=== PATIENT | female | born 1955 | race Caucasian/White ===

== ENCOUNTER → 2017-10-02 09:01 | Outpatient (CLI) | payer OTHER, SELFPAY ==
[2017-10-02 10:48] LABS: ALB/GLOB Ratio 0.8 RATIO (0.9-2.4); AST(SGOT) 33 U/L (15-37); Alanine Aminotransfer ALT/SGPT 26 U/L (13-56); Albumin, Serum 3.3 g/dL (3.2-5.0); Alkaline Phosphatase 91 U/L (45-117); Anion Gap 7 (5-15); BUN 10 mg/dL (7-18); BUN/Creat Ratio 16.6 RATIO (10-20); Calcium,Total 8.2 mg/dL (8.5-10.1); Chloride 109 mmol/L (98-107); EST Glomerular Filtration Rate 106 mL/min (>60); Est Glom Filt Rate - Afr Amer 129 mL/min (>60); Globulin 4.1 g/dL (2.2-4.2); Glucose 80 mg/dL (74-106); Magnesium 2.5 mg/dL (1.6-2.6); Potassium 4.2 mmol/L (3.5-5.1); Protein, Total 7.4 g/dL (6.4-8.2); Sodium Level 143 mmol/L (136-145)
[2017-10-02 12:42] LABS: PTHIN 98.4 pg/mL (18.4-80.1)
== END ==
PROVIDERS: Family Provider Internal Medicine; PCP Internal Medicine; Visit Provider Internal Medicine Endocrinology, Diabetes & Metabolism
DX: M81.0 Age-related osteoporosis without current pathological fracture (principal); E83.42 Hypomagnesemia
CPT/HCPCS: 36415; 80053; 83735; 83970

== ENCOUNTER → 2017-11-17 09:11 | Outpatient (CLI) | payer OTHER, SELFPAY ==
[2017-11-17 09:54] LABS: 24Hr.Lytes Total Volume 2750 mL; Sodium 24 HR UR 165 mmol/24h (40-220); Urine Sodium 60 mmol/L (Not Establ.)
[2017-11-17 10:08] LABS: Albumin, Serum 3.2 g/dL (3.2-5.0); BUN 11 mg/dL (7-18); BUN/Creat Ratio 17.6 RATIO (10-20); Creatinine, Serum 0.62 mg/dL (0.55-1.02); EST Glomerular Filtration Rate 102 mL/min (>60); Est Glom Filt Rate - Afr Amer 124 mL/min (>60); Globulin 3.8 g/dL (2.2-4.2); Glucose 92 mg/dL (74-106)
[2017-11-17 10:09] LABS: ALB/GLOB Ratio 0.8 RATIO (0.9-2.4); AST(SGOT) 32 U/L (15-37); Alanine Aminotransfer ALT/SGPT 27 U/L (13-56); Alkaline Phosphatase 80 U/L (45-117); Anion Gap 5 (5-15); Calcium,Total 8.3 mg/dL (8.5-10.1); Chloride 108 mmol/L (98-107); Magnesium 2.3 mg/dL (1.6-2.6); Potassium 4.2 mmol/L (3.5-5.1); Sodium Level 142 mmol/L (136-145)
[2017-11-17 10:16] LABS: PTHIN 78.8 pg/mL (18.4-80.1)
== END ==
PROVIDERS: Family Provider Internal Medicine; PCP Internal Medicine; Visit Provider Internal Medicine Endocrinology, Diabetes & Metabolism
DX: M81.0 Age-related osteoporosis without current pathological fracture (principal); E83.42 Hypomagnesemia; E55.9 Vitamin D deficiency, unspecified; E21.5 Disorder of parathyroid gland, unspecified
CPT/HCPCS: 36415; 80053; 82306; 82570; 83735; 83970; 84300

== ENCOUNTER → 2017-11-20 13:06 | Outpatient (CLI) | payer OTHER, SELFPAY ==
[2017-11-20 13:44] LABS: 24HR UR TOTAL VOLUME 2850 ml; Calcium Urine pH Range 1; Urine Calcium (Random) < 5.0 (Not Estab.)
== END ==
PROVIDERS: Family Provider Internal Medicine; PCP Internal Medicine; Visit Provider Internal Medicine Endocrinology, Diabetes & Metabolism
DX: M81.0 Age-related osteoporosis without current pathological fracture (principal)
CPT/HCPCS: 81050; 82340

== ENCOUNTER → 2017-12-17 08:54 | Outpatient (CLI) | payer OTHER, SELFPAY ==
[2017-12-17 08:59] VITALS: BP 92/65; PULSE 65; RESP 18; TEMP 35.9; O2SAT 99
[2017-12-17] MEDS: Zoledronic Acid 5 MG 100 ML 300 MG IV (09:13)
== END ==
PROVIDERS: Family Provider Internal Medicine; PCP Internal Medicine; Visit Provider Internal Medicine Endocrinology, Diabetes & Metabolism
DX: M81.0 Age-related osteoporosis without current pathological fracture (principal)
CPT/HCPCS: 96365; A4216; J3489

== ENCOUNTER → 2018-01-07 09:37 | Outpatient (CLI) | payer OTHER, SELFPAY ==
--- NOTE | 2018-01-07 09:37 | DT_ITS ---
This patient was seen during an EMR downtime January 05, 2018 - January 12, 2018. This patient may have a combination of paper and electronic documentation or all paper documentation. All documentation is viewable within the e-chart portion of [facility] for each patient visit.
[2018-01-12 12:47] LABS: PTHIN 76.2 pg/mL (18.4-80.1)
[2018-01-12 15:49] LABS: Anion Gap 5 (5-15); BUN 12 mg/dL (7-18); BUN/Creat Ratio 16.7 RATIO (10-20); Calcium,Total 8.6 mg/dL (8.5-10.1); Chloride 109 mmol/L (98-107); Creatinine, Serum 0.72 mg/dL (0.55-1.02); EST Glomerular Filtration Rate 87 mL/min (>60); Est Glom Filt Rate - Afr Amer 105 mL/min (>60); Glucose 80 mg/dL (74-106); Potassium 4.3 mmol/L (3.5-5.1); Sodium Level 142 mmol/L (136-145)
== END ==
PROVIDERS: Family Provider Internal Medicine; PCP Internal Medicine
DX: E22.1 Hyperprolactinemia (principal); M81.0 Age-related osteoporosis without current pathological fracture
CPT/HCPCS: 36415; 80048; 83970

== ENCOUNTER → 2018-07-09 09:34 | Outpatient (CLI) | payer OTHER, SELFPAY ==
[2018-07-09 11:48] LABS: ALB/GLOB Ratio 0.8 RATIO (0.9-2.4); AST(SGOT) 39 U/L (15-37); Alanine Aminotransfer ALT/SGPT 32 U/L (13-56); Albumin, Serum 3.2 g/dL (3.2-5.0); Alkaline Phosphatase 61 U/L (45-117); Anion Gap 6 (5-15); BUN 12 mg/dL (7-18); BUN/Creat Ratio 16.7 RATIO (10-20); Calcium,Total 8.6 mg/dL (8.5-10.1); Chloride 107 mmol/L (98-107); Creatinine, Serum 0.72 mg/dL (0.55-1.02); EST Glomerular Filtration Rate 87 mL/min (>60); Est Glom Filt Rate - Afr Amer 105 mL/min (>60); Globulin 4.1 g/dL (2.2-4.2); Glucose 75 mg/dL (74-106); Magnesium 2.2 mg/dL (1.6-2.6); Potassium 4.3 mmol/L (3.5-5.1); Protein, Total 7.3 g/dL (6.4-8.2); Sodium Level 141 mmol/L (136-145)
== END ==
PROVIDERS: Family Provider Internal Medicine; PCP Internal Medicine; Referring Provider Internal Medicine Endocrinology, Diabetes & Metabolism; Visit Provider Internal Medicine Endocrinology, Diabetes & Metabolism
DX: M81.0 Age-related osteoporosis without current pathological fracture (principal); E83.42 Hypomagnesemia
CPT/HCPCS: 36415; 80053; 83735

== ENCOUNTER → 2018-07-18 07:03 | Outpatient (CLI) | payer OTHER, SELFPAY ==
[2018-07-18 08:38] LABS: Cholesterol 192 mg/dL (200); High Density Lipoprotein 42 mg/dL; Triglycerides 129 mg/dL; Very Low Density Lipoprotein 26 mg/dL (5-40)
[2018-07-18 09:00] LABS: PTHIN 163.5 pg/mL (18.4-80.1)
[2018-07-18 09:06] LABS: Vitamin D,25 Hydroxy 76.8 ng/mL (29.95-100.01)
--- OUTSIDE RECORDS SUMMARY | 2018-10-21 08:20 | XMS RPT_ITS | Continuity of Care Document ---
:1955 Author Organization [facility] Address [facility] [address] [place] [address] Phone Care Team Providers Name Role Phone Amy Pickard DO Unavailable Dr. Mesfin Newton DO Unavailable Silver LLANOS, Dr. Odonnell Unavailable Dr. Kun Simon Unavailable Chanel Bush Unavailable Unavailable Slarb CONCRETE SWIMMING POOL INSTALLER, Leigh Unavailable Unavailable MessengerKHANHN Chanel Unavailable Unavailable Long CONCRETE SWIMMING POOL INSTALLER, Genevieve L Unavailable Unavailable Unavailable Unavailable Problems Name Dates Details Abnormal lung sounds (R09.89, 786.7) Comments: Forced exp wheeze Status: Active Abortions/Miscarriages Comments: 3 Status: Active Anemia (D64.9, 285.9) Status: Active Annual physical exam (Z00.00, V70.0) Status: Active B12 deficiency (E53.8, 266.2) Status: Active BMI less than 19,adult (Z68.1, V85.0) Status: Active Breast cyst (610.0) Status: Active Breast screening (Z12.31, V76.10) Status: Active Breast screening (Z12.39, V76.10) Status: Active Cough (R05, 786.2) Status: Active Deliveries (Parity) Comments: 2 Status: Active Disorder of bone and cartilage (M89.9, 733.90) Comments: osteopenia-- worsening -- will hold off until jaw issues figured out -- then if ok need to do new /different rx bc boniva not working Status: Active Encounter for screening for lipid disorder (Z13.220, V77.91) Status: Active Encounter for screening for malignant neoplasm of colon (Renamed from Special screening for malignant neoplasms, colon) (Z12.11, V76.51) Status: Active Encounter for screening mammogram for breast cancer (Renamed from Encounter for screening mammogram for malignant neoplasm of breast) (Z12.31, V76.12) Status: Active GERD (gastroesophageal reflux disease) (K21.9, 530.81) Status: Active IMPETIGO (684.) (L01.00, 684) Status: Active Low HDL (under 40) (E78.6, 272.5) Status: Active Non-smoker (Z78.9, V49.89) Status: Active OSTEOPENIA Comments: pt quit meds one yr ago bc was having a lot of dental problems and still having crowns and surgery so she put it on hold Status: Active Osteoporosis, 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, 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 Other specified viral infection, in conditions classified elsewhere and of unspecified site (B97.89, 079.89) Status: Active Pharyngitis, acute (J02.9, 462) Status: Active Postmenopausal (Z78.0, V49.81) Comments: Mala manages- due 2019 Status: Active Pregnancies () Comments: 5 Status: Active Rash (R21, 782.1) Status: Active Screening for HPV (human papillomavirus) (Renamed from Encounter for screening for human papillomavirus (HPV)) (Z11.51, V73.81) Status: Active Screening for malignant neoplasm of breast (Z12.39, V76.10) Status: Active Sinusitis, bacterial (J32.9, 473.9) Status: Active Well woman exam (Z01.419, V72.31) Status: Active Well woman exam (Renamed from Encounter for well woman exam) (Z01.419, V72.31) Status: Active Medications Name Dates Details ASPIRIN EC, 81MG (Oral Tablet Delayed Release) Active (81 MG) Calcium Active IRON, 25MG (Oral Tablet) Active 1 DAILY (25 MG) MELATONIN CR, 3MG (Oral Tablet Extended Release) Active (3 MG) ProAir HFA 108 (90 Base) MCG/ACT Inhalation Aerosol Solution 1-2 Puff(s) Q4-6 hours PRN for 0 days Quantity: 1 {Inhaler} Refills: 0 Ordered:11-Aug-2017 Chanel Bush Start : 11-Aug-2017 Active Zantac 150 Maximum Strength 150 MG Oral Tablet 1 Tablet bid for 0 days Quantity: 180 {Tablet} Refills: 0 Ordered:31-Mar-2018 Candis Pickard DO, DO, Kathleen Start : 31-Mar-2018 Active Zantac 150 Maximum Strength 150 MG Oral Tablet 1 Tablet bid for 0 days Quantity: 180 {Tablet} Refills: 3 Ordered:31-Mar-2018 Candis Pickard DO, DO, Kathleen Start : 31-Mar-2018 Active ACTONEL, 35MG (Oral Tablet) 1 Tablet qwk for 0 days Quantity: 12 {Tablet} Refills: 3 Ordered:19-Aug-2008 Tona Bautista LPN Start : 19-Aug-2008 End : 07-Dec-2008 Inactive ACYCLOVIR, 400MG (Oral Tablet) 2 (two) Tablet tid for 2 days Quantity: 12 {Tablet} Refills: 0 Ordered:23-May-2014 Meg MCKEON Yady Nicholson Start : 23-May-2014 End : 25-May-2014 Inactive ALIGN, 4MG (Oral Capsule) 1 Capsule daily for 30 days Refills: 0 Ordered:07-Aug-2011 Meg MCKEONYady Start : 22-May-2011 End : 21-Jun-2011 Inactive Amoxicillin-Pot Clavulanate 875-125 MG Oral Tablet 1 (one) Tablet PO BID for 14 days Quantity: 28 {Tablet} Refills: 0 Ordered:11-Aug-2017 Chanel Bush Start : 11-Aug-2017 End : 25-Aug-2017 Inactive Comments:Take with food ATIVAN, 0.5MG (Oral Tablet) 1 (one) Tablet BID PRN for 0 days Quantity: 30 {Tablet} Refills: 0 Ordered:05-Feb-2011 Chanel Claire LPN Start : 22-Nov-2009 End : 05-Feb-2011 Inactive BACTROBAN, 2% (External Ointment) apply to affected area Ointment tid for 10 days Quantity: 1 {Tube} Refills: 0 Ordered:13-Nov-2015 Candis Pickard DO, DO, Kathleen Start : 13-Nov-2015 End : 23-Nov-2015 Inactive CEFDINIR, 300MG (Oral Capsule) 1 Capsule bid for 7 days Quantity: 14 {Capsule} Refills: 0 Ordered:30-Sep-2011 Melly FIERRO SophielaithpeytonCherylsamanthakarena Amy Start : 30-Sep-2011 End : 07-Oct-2011 Inactive DOXYCYCLINE HYCLATE, 100MG (Oral Capsule) 1 Capsule bid for 0 days Quantity: 10 {Capsule} Refills: 0 Ordered:15-Jul-2012 Chanel Claire LPN Start : 05-Mar-2012 End : 15-Jul-2012 Inactive FISH OIL CONCENTRATE, 1000MG (Oral Capsule) 1 qd for 0 days Refills: 0 Ordered:13-Nov-2015 Chanel Claire LPN End : 13-Nov-2015 Inactive Magnesia/Alumina Inactive PREDNISONE, 20MG (Oral Tablet) tad Tablet 2 tabs bid for 2 days then 1 tab bid for 6 days then 1 tab daily for 6 days for 0 days Quantity: 26 {Tablet} Refills: 0 Ordered:25-Nov-2012 Chanel Claire LPN Start : 16-Oct-2012 End : 25-Nov-2012 Inactive RANITIDINE HCL, 150MG (Oral Capsule) 1 Capsule bid for 0 days Quantity: 60 {Capsule} Refills: 0 Ordered:15-Jul-2012 Chanel Claire LPN Start : 02-Jun-2012 End : 15-Jul-2012 Inactive TESSALON PERLES, 100MG (Oral Capsule) 1 Capsule tid prn for 0 days Quantity: 30 {Capsule} Refills: 0 Ordered:30-Sep-2011 Chanel Claire LPN Start : 22-May-2011 End : 30-Sep-2011 Inactive ZITHROMAX Z-MARGIE, 250MG (Oral Tablet) 1 Tablet TAD for 0 days Quantity: 1 {Package(s)} Refills: 0 Ordered:30-Sep-2011 Chanel Claire LPN Start : 22-May-2011 End : 30-Sep-2011 Inactive Zovirax 5 % External Ointment apply to affected area Ointment 5times a day when outbreak for 0 days Quantity: 15 {Gram} Refills: 2 Ordered:09-Jun-2017 Chanel Claire LPN Start : 13-Nov-2015 End : 09-Jun-2017 Inactive BONIVA, 150MG (Oral Tablet) 1 Tablet monthly for 0 days Quantity: 3 {Tablet} Refills: 3 Ordered:28-Oct-2011 Candis Pickard DO, DO, Kathleen Start : 28-Oct-2011 End : 28-Oct-2011 Discontinued Comments:dexa worsening and ?? jaw problems - seeing dentist currently IRON, 345MG (PO Cap) 1 qd for 0 days Refills: 0 Ordered:26-Jan-2008 Chanel Claire LPN Start : 26-Jan-2008 End : 26-Jan-2008 Discontinued Comments:This order discontinued per [facility]. PROTONIX, 40MG (Oral Tablet Delayed Release) [address] qd for 0 days Quantity: 90 {Tablet_DR} Refills: 3 Ordered:17-Jun-2007 Candis Pickard DO, DO, Kathleen Start : 17-Jun-2007 End : 17-Jun-2007 Discontinued ZANTAC, 150MG (Oral Capsule) 1 (one) Capsule bid for 0 days Quantity: 180 {Capsule} Refills: 3 Ordered:15-Aug-2009 Chanel Claire LPN Start : 15-Aug-2009 End : 05-Feb-2011 Discontinued Comments:This order discontinued per [facility]. Allergies and Adverse Reactions Name Dates Details No Known Allergies (Allergy) Onset: 26-Nov-2013 Status: Active No Known Drug Allergies (Allergy) Status: Active Past Medical History Name Dates Details Abnormal chest x-ray (R93.89, 793.2) Status: Inactive as of 15-Jul-2012 BLISTER, FOOT/TOE W/INFECTION (917.3) Status: Resolved as of 25-Nov-2012 Bronchitis (J40, 490) Status: Resolved as of 15-Jul-2012 Cellulitis of foot (L03.119, 682.7) Status: Inactive as of 15-Jul-2012 Cold sore (B00.1, 054.9) Status: Inactive as of 16-Nov-2014 Cough (R05, 786.2) Status: Inactive as of 15-Jul-2012 Dysfunctional grieving (F43.21, 309.0) Status: Resolved as of 15-Jul-2012 Fatigue (R53.83, 780.79) Status: Inactive as of 13-Nov-2015 Osteoporosis (M81.0, 733.00) Status: Resolved as of 27-Feb-2009 Poison thalia (L23.7, 692.6) Status: Inactive as of 25-Nov-2012 Pre-operative examination (Z01.818, V72.84) Status: Inactive as of 16-Jan-2009 Stress reaction (F43.0, 308.9) Status: Resolved as of 25-Nov-2012 Unspecified Diagnosis Status: Inactive as of 15-Jul-2012 Wheezing (R06.2, 786.07) Status: Inactive as of 15-Jul-2012 Procedures Date Value Details 22-Jan-2018 Downtime Report Result: Comments: See Note; NOTES: [facility] Medical Records Department [address] [place] [address] Downtime Report MR#: [id number] Acct: [id number] Name: GOKULJAJATEJA Rep #: [id number] : 1955 62 From: Aron Hernandez PCP: Amy Pickard DO Status: REG CLI This patient was seen during an EMR downtime January 05, 2018 - January 12, 2018. This patient may have a combination of paper and electronic documentation or all paper documentation. All documentation is viewable within the e-chart portion of [facility] for each patient visit. 10-Jul-2017 Dexa Bone Density Study (HP) Result: Comments: See Note; NOTES: [facility] Imaging Services [address] [place] [address] Dexa Bone Density Study (HP) MR#: [id number] Acct: [id number] Name: JAJA WISE Rep #: [id number] : 1955 F 62 From: Dimitri Frye MD PCP: Amy Pickard DO Status: REG CLI Study: Dexa Bone Density Study (HP) Date of Exam: 07/10/17 Exam# [id number] Ordering Dr: Amy Pickard DO STUDY: DUAL ENERGY X-RAY ABSORPTIOMETRY / DXA REASON FOR EXAM: Female, 62 years old. The patient is postmenopausal. No loss of height. TECHNIQUE: Bone Mineral Density (BMD) measurements of lumba r spine and bilateral hips were obtained. COMPARISON: Comparison is made with prior study dated November 16, 2014. FINDINGS: Lumbar Spine (L1-L4): g/cm2 (0.803) / T-s core (-3.1) / Z-score (-1.7) Findings are suggestive of osteoporosis with a high fracture risk. Left Femur Total: g/cm2 (0.692) / T-score (-2.5) / Z-score (- 1.4) Left Femoral Neck: g/cm2 (0.711) / T-sc ore (-2.4) / Z-score (-1.0) Right Femur Total: g/cm2 (0.708) / T-score (-2.4) / Z-score (-1.3) Right Femoral Neck: g/cm2 (0.750) / T-score (-2.1) / Z-score (- 0.7) The T-Scores on the most recent prior examination were: Lumbar Spine (L1-L4): There has been worsening of bone density since the previous examination. Left Femur Total: which represents a worsening of 4.3%. Right Femur Total: which repres ents a worsening of 0.4%. 0002 HPBD/Dexa Bone Density Study (HP) IMPRESSION: The patient is considered osteoporotic as outlined below according to Wor ld Pankaj Organization (WHO) criteria with a high fracture risk. There has been worsening of bone density since the previous examination. Reference Information: The T-score is the number of standard deviations above or below the standard which is normal for young adults at their peak bone mineral density. The World Health Organization (WHO) interprets the T-scores as follows: Above -1 Normal bone density Between -1 and -2.5 Osteopenia Equal to / or below -2.5 Osteoporosis As a practical clinical guideline, osteopenia may be graded as follows: Mild -1 through -1 .5 Moderate -1.6 through -2.0 Severe -2.1 through -2.4 The Z-score is the number of standard deviations above or below age-matched controls. A Z-score of less than -1.5 would be considered abnormal. R eferences: 1. NIH Osteoporosis and Related Bone Diseases http://www.osteo.org 2. International Society for Clinical Densitometry http://www.iscd.org 3. National Osteoporosis Foundation http://www.nof.or g Electronically Signed: Dimitri Frye MD at 13:34 EST Tel [phone], Service support , CC: Amy Pickard DO Water Treatment Operator: Signed 10-Jul-2017 SCREENING MAMM (CAD), BILAT Result: Comments: See Note; NOTES: [facility] Imaging Services [address] [place] [address] SCREENING MAMM (CAD), BILAT MR#: [id number] Acct: [id number] Name: JAJA WISE Rep #: [id number] : 1955 F 62 From: Dimitri Frye MD PCP: Amy Pickard DO Status: [facility] Study: SCREENING MAMM (CAD), BILAT Date of Exam: 07/10/17 Exam# [id number] Ordering Dr: Amy Pickard MAMMOGRAPHY - BILATERAL SCREENING REASON FOR EXAM: Female, 62 years old. Routine annual screening examination. PERTINENT HISTORY: Aunt with breast cancer. TECHNIQUE: Digital bilateral breast mateus (3D mammographic acquisition) in the CC and MLO projections. 2-D mediolateral oblique (MLO) and craniocaudad (CC) views of both breasts were obtained. CAD: Full Field Digital Mammography with Computer Added Detection was performed. COMPARISON: Comparison is made with prior examination dated November 28, 2015 and November 16, 2014. FINDINGS: Breast Composition: The smitha sts are extremely dense, which lowers the sensitivity of mammography. There are no dominant masses or suspicious calcifications. No other significant abnormalities are identified. There has been no si gnificant change since the prior study. HPBI/SCREENING MAMM (CAD), BILAT IMPRESSION: Stable bilateral screening mammogram. Yearly follow-up mammo gram recommended. (A) ASSESSMENT CATEGORY: BIRADS Category 1: Negative. A letter regarding these results will be sent to the patient by the facility within 30 days. Approximately 10% of breast cancers are not detected by mammography. A normal mammogram should not delay biopsy of a clinically suspicious abnormality. [id number] Electronically Signed: Dimitri contreras MD at 14:28 EST Tel [phone], Service support , CC: Amy Pickard DO Water Treatment Operator: Signed 28-Nov-2015 Bilat Scrn Digital AND CAD Result: Comments: See Note; NOTES: [facility] Imaging Services [address] [place] [address] [address] 4d Bilat Scrn Digital AND CAD MR#: [id number] Acct: [id number] Name: JAJA WISE Rep #: [id number] : 1955 F 60 From: Dimitri Frye MD PCP: Amy Pickard DO Status: REG CLI Study: Bilat Scrn Digital AND CAD Date of Exam: 11/28/15 Exam# [id number] Order ing Dr: Amy Pickard DO MAMMOGRAPHY - BILATERAL SCREENING REASON FOR EXAM: Female, 60 years old. Routine annual screening examination. PERTINENT HISTORY: Aunt with breast cancer. Prior righ t excisional breast biopsy. TECHNIQUE: Digital bilateral breast tomosynthesis (3-D mammographic acquisition) in the CC and MLO projections. Synthesized 2-D images (C-View reconstruction from tomosy nthesis acquisition) providing bilateral breast CC and MLO views. Mediolateral oblique (MLO) and craniocaudad (CC) views of both breasts were obtained. CAD: Full Field Digital Mammography with Comput er Added Detection was performed. COMPARISON: Comparison is made with prior study dated November 16, 2014 and November 15, 2013. FINDINGS: Breast Composition: The br easts are extremely dense, which lowers the sensitivity of mammography. There are no dominant masses or suspicious calcifications. No other significant abnormalities are identified. There has been no significant change since the prior study. IMPRESSION: Stable bilateral screening mammogram. Yearly follow-up mammogram recommended. (A) ASSESSMENT CATEGORY: BIRADS Category 1: Negative. A letter regarding these results will be sent to the patient by the facility within 30 days. Approximately 10% of breast cancers are not detected by mammography. A normal mammogram should not delay biopsy of a clinically suspicious abnormality. [id number] Electronically Signed: Dimitri Frye MD at 11:18 EDT Tel [phone], Service support [phone], CC: Amy Pickard DO Water Treatment Operator: Signed 16-Nov-2014 Terell Pimentel Digital AND CAD Result: Comments: See Note; NOTES: [facility] Imaging Services [address] [place] [address] Breast Imaging Report MR#: [id number] Acct: [id number] Name: JAJA WISE Rep #: [id number] : 1955 F 59 From: Dimitri Frye MD PCP: Amy Pickard DO Status: [facility] CLI Study: Terell Pimentel Digital AND CAD Date of Exam: 11/16/14 Exam# [id number] Ordering Dr: Lauren Pickard DO MAMMOGRAPHY - BILATERAL SCREENING REASON FOR EXAM: Female, 59 years old. Routine annual screening examination. PERTINENT HISTORY: Aunt with breast cancer. Prior right excisional breast bi opsy. TECHNIQUE: Digital examination. Mediolateral oblique (MLO) and craniocaudad (CC) views of both breasts were obtained. CAD: CAD was performed on this study. COMPARISON: Comparison is made wit h prior examination dated November 15, 2013 and November 24, 2012. FINDINGS: Breast Composition: The breasts are extremely dense, which lowers the sensitivity of mamm ography. There are no dominant masses or suspicious calcifications. No other significant abnormalities are identified. There has been no significant change since the prior study. IMPRESSION: Stable bilateral screening mammogram. Yearly follow-up recommended. (A) ASSESSMENT CATEGORY: BIRADS Category 2: Benign. A letter regarding these results will be sent to the patient by the facility within 30 days. Approximately 10% of breast cancers are not detected by mammography. A normal mammogram should not delay biopsy o f a clinically suspicious abnormality. Electronically Signed: Dimitri Frye MD at 11:04 EDT Tel [phone], Service support [phone], CC: Amy Pickard DO Water Treatment Operator: Signed 16-Nov-2014 Dexa Bone Density Study (HP) Result: Comments: See Note; NOTES: [facility] Imaging Services [address] [place] [address] Bone Density Report MR#: [id number] Acct: [id number] Name: JAJA WISE Rep #: [id number] : 1955 F 59 From: Dimitri Frye MD PCP: Amy Pickard DO Status: [facility] CLI Study: Dexa Bone Density Study (HP) Date of Exam: 11/16/14 Exam# [id number] Ordering Dr: Lauren Pickard DO STUDY: DUAL ENERGY X-RAY ABSORPTIOMETRY / DXA REASON FOR EXAM: Female, 59 years old. The patient is postmenopausal. TECHNIQUE: Bone Mineral Density (BMD) measurements of lumbar spine and b ilateral hips were obtained. COMPARISON: Comparison is made with prior study dated September 17, 2011. FINDINGS: Lumbar Spine (L1-L4): g/cm2 (0.866) / T-score ( -2.6) / Z-score (-1.4) Findings are suggestive of osteopenia with a moderate fracture risk. Left Femur Total: g/cm2 (0.723) / T-score (-2.3) / Z-score (- 1.3) Left Femoral Neck: g/cm2 (0.726) / T-sco re (-2.2) / Z-score (-1.0) Right Femur Total: g/cm2 (0.711) / T-score (-2.4) / Z-score (-1.4) Right Femoral Neck: g/cm2 (0.702) / T-score (-2.4) / Z-score (-1.2) The T-Scores on the most recent prio r examination were: Lumbar Spine (L1-L4): There has been improvement of bone density since the previous examination. Left Femur Total: which represents a worsening of 9.5%. Right Femur Total: whic h represents a worsening of 11.5%. IMPRESSION: The patient is considered osteopenic as outlined below according to World Pankaj Organization (WHO) criteria with a moderate fracture risk. There has been worsening of bone density since the previous examination. Reference Information: The T-score is the number of standard d eviations above or below the standard which is normal for young adults at their peak bone mineral density. The World Health Organization (WHO) interprets the T-scores as follows: Above -1 Normal glenis ne density Between -1 and -2.5 Osteopenia Equal to / or below -2.5 Osteoporosis As a practical clinical guideline, osteopenia may be graded as follows: Mild -1 through -1.5 Moderate -1.6 through - 2.0 Severe -2.1 through -2.4 The Z-score is the number of standard deviations above or below age-matched controls. A Z-score of less than -1.5 would be considered abnormal. References: 1. NIH Ost eoporosis and Related Bone Diseases http://www.osteo.org 2. International Society for Clinical Densitometry http://www.iscd.org 3. National Osteoporosis Foundation http://www.nof.org Electronically Signed: Dimitri Frye MD at 10:55 EDT Tel [phone], Service support [phone], CC: Amy Pickard DO Water Treatment Operator: Signed 05-Oct-2014 Chest PA and Lateral Result: Comments: See Note; NOTES: [facility] Imaging Services [address] [place] [address] Radiology Report MR#: [id number] Acct: [id number] Name: JAJA WISE Rep #: [id number] : 1955 F 59 From: Alcides Cota MD PCP: Amy Pickard DO Status: REG REF Study: Chest PA and Lateral Date of Exam: 10/05/14 Exam# [id number] Ordering Dr: Amy Pickard DO STUDY: X-RAY CHEST REASON FOR EXAM: Female, 59 years old. Positive tuberculosis test. TECHNIQUE: PA and lateral views of the chest. COMPARISON: August 28, 2011 FI NDINGS: Granulomatous calcifications including in the retrosternal region are stable. No new infiltrate. Pleural thickening in the left lower chest with possible healed rib fractures. Normal size heart. Normal mediastinum and maciel. Normal visualized pulmonary arteries. Normal visualized aortic arch and descending thoracic aorta. Normal visualized thoracic spine. Normal visualized ribs, clavi cles, and shoulders. There is no demonstrated abnormality of the visualized soft tissue structures of the upper abdomen. IMPRESSION: Granulomas calcifications . No evidence of active tuberculosis. Electronically Signed: Alcides Cota MD at 17:13 EST , Service support [phone], CC: Amy Pickard DO Water Treatment Operator: Signed 15-Nov-2013 Bilat Scrn Digital & CAD Result: Comments: See Note; NOTES: [facility] Imaging Services [address] [place] [address] Breast Imaging Report MR#: [id number] Acct: [id number] Name: JAJA WISE Rep #: [id number] : 1955 F 58 From: Dimitri Frye MD PCP: Amy Pickard DO Status: REG CLI Exam# [id number] Ordering Dr: Amy Pickard DO MAMMOGRAPHY - BILATERAL SCREENING REASON FOR E XAM: Female, 58 years old. Routine annual screening examination. PERTINENT HISTORY: Aunt with breast cancer. TECHNIQUE: Digital examination. Mediolateral oblique (MLO) and craniocaudad (CC) views of both breasts were obtained. CAD: CAD was performed on this study. COMPARISON: Comparison is made with prior examination dated November 24, 2012 and September 17, 2011. FINDINGS: The breast composition is extremely dense - greater than 75% glandular and fibrous tissue. This can lower the sensitivity of mammography. There are no dominant masses or suspicious calcifications. No other significant abnormalities are identified. There has been no significant change since the prior study. IMPRESSION: Stable bilateral sc reening mammogram. Yearly follow-up recommended. (A) ASSESSMENT CATEGORY: BIRADS Category 2: Benign finding(s). A letter regarding these results will be sent to the patient by the facility within 30 days. Approximately 10% of breast cancers are not detected by mammography. A normal mammogram should not delay biopsy of a clinically suspicious abnormality. Electronically Signed: Dimitri Frye MD at 15:51 EDT Tel , Service support [phone], CC: Amy Pickard DO Water Treatment Operator: Signed Family History Unknown Family Member Name Dates Details Family Members In General Comments: Aunt had Breast Ca Status: Active Social History Name Dates Details Alcohol Use Status: Active Caffeine Use Status: Active No Drug Use Status: Active Non Smoker/No Tobacco Use Status: Active Tobacco use: Former smoker. Comments: I did a little in my 20s Status: Active Smoking Status Name Dates Details Former smoker Vital Signs Date Test Result Details :34 Pulse 76 /min Comments: Pattern: Regular Respiration Rate 18 /min Comments: Pattern: Unlabored O2 SAT 98 % Comments: Room air BP Systolic 118 mm[Hg] Comments: Patient Position: Sitting; Cuff Location: Left Arm; Cuff Size: Standard BP Diastolic 62 mm[Hg] Comments: Patient Position: Sitting; Cuff Location: Left Arm; Cuff Size: Standard Weight 128.5 lb Height 67.75 in Body Mass Index Calculated 19.68 kg/m2 Body Surface Area Calculated 1.69 m2 :21 Temperature 97.2 f Pulse 87 /min Comments: Pattern: Regular Respiration Rate 16 /min Comments: Pattern: Unlabored O2 SAT 94 % Comments: Room air BP Systolic 116 mm[Hg] Comments: Patient Position: Sitting; Cuff Location: Left Arm; Cuff Size: Standard BP Diastolic 68 mm[Hg] Comments: Patient Position: Sitting; Cuff Location: Left Arm; Cuff Size: Standard Weight 123 lb Height 67.75 in Body Mass Index Calculated 18.84 kg/m2 Body Surface Area Calculated 1.66 m2 :34 Pulse 70 /min Comments: Pattern: Regular Respiration Rate 18 /min Comments: Pattern: Unlabored O2 SAT 99 % Comments: Room air BP Systolic 102 mm[Hg] Comments: Patient Position: Sitting; Cuff Location: Left Arm; Cuff Size: Standard BP Diastolic 62 mm[Hg] Comments: Patient Position: Sitting; Cuff Location: Left Arm; Cuff Size: Standard Weight 122.5 lb Height 67.75 in Body Mass Index Calculated 18.76 kg/m2 Body Surface Area Calculated 1.66 m2 :51 Pulse 66 /min Comments: Pattern: Regular Respiration Rate 18 /min Comments: Pattern: Unlabored O2 SAT 98 % Comments: Room air BP Systolic 112 mm[Hg] Comments: Patient Position: Sitting; Cuff Location: Left Arm; Cuff Size: Standard BP Diastolic 58 mm[Hg] Comments: Patient Position: Sitting; Cuff Location: Left Arm; Cuff Size: Standard Weight 122.5 lb Height 67.75 in Body Mass Index Calculated 18.76 kg/m2 Body Surface Area Calculated 1.66 m2 :53 Pulse 65 /min Comments: Pattern: Regular Respiration Rate 18 /min Comments: Pattern: Unlabored O2 SAT 97 % Comments: Room air BP Systolic 110 mm[Hg] Comments: Patient Position: Sitting; Cuff Location: Left Arm; Cuff Size: Standard BP Diastolic 62 mm[Hg] Comments: Patient Position: Sitting; Cuff Location: Left Arm; Cuff Size: Standard Weight 117.25 lb Height 67.75 in Body Mass Index Calculated 17.96 kg/m2 Body Surface Area Calculated 1.62 m2 :54 Pulse 69 /min Comments: Pattern: Regular Respiration Rate 18 /min Comments: Pattern: Unlabored O2 SAT 98 % Comments: Room air BP Systolic 102 mm[Hg] Comments: Patient Position: Sitting; Cuff Location: Left Arm; Cuff Size: Standard BP Diastolic 60 mm[Hg] Comments: Patient Position: Sitting; Cuff Location: Left Arm; Cuff Size: Standard Weight 117.25 lb Height 67.75 in Body Mass Index Calculated 17.96 kg/m2 Body Surface Area Calculated 1.62 m2 :51 Temperature 98.5 f Comments: Method: Oral Pulse 69 /min Comments: Pattern: Regular O2 SAT 98 % Comments: Room air BP Systolic 110 mm[Hg] Comments: Patient Position: Sitting; Cuff Location: Left Arm; Cuff Size: Standard BP Diastolic 68 mm[Hg] Comments: Patient Position: Sitting; Cuff Location: Left Arm; Cuff Size: Standard Weight 118.125 lb Height 67.75 in Body Mass Index Calculated 18.09 kg/m2 Body Surface Area Calculated 1.63 m2 :24 Temperature 98.2 f Comments: Method: Oral Pulse 66 /min Comments: Pattern: Regular Respiration Rate 16 /min O2 SAT 96 % Comments: Room air BP Systolic 102 mm[Hg] Comments: Patient Position: Sitting; Cuff Location: Left Arm; Cuff Size: Standard BP Diastolic 60 mm[Hg] Comments: Patient Position: Sitting; Cuff Location: Left Arm; Cuff Size: Standard Weight 118.125 lb Height 67.75 in Body Mass Index Calculated 18.09 kg/m2 Body Surface Area Calculated 1.63 m2 :55 Pulse 72 /min Comments: Pattern: Regular Respiration Rate 16 /min Comments: Pattern: Unlabored O2 SAT 98 % Comments: Room air BP Systolic 100 mm[Hg] Comments: Patient Position: Sitting; Cuff Location: Left Arm; Cuff Size: Standard BP Diastolic 58 mm[Hg] Comments: Patient Position: Sitting; Cuff Location: Left Arm; Cuff Size: Standard Weight 118.125 lb Height 67.75 in Body Mass Index Calculated 18.09 kg/m2 Body Surface Area Calculated 1.63 m2 :10 Temperature 97.9 f Comments: Method: Oral Pulse 60 /min Comments: Pattern: Regular Respiration Rate 16 /min Comments: Pattern: Unlabored BP Systolic 94 mm[Hg] Comments: Patient Position: Sitting; Cuff Location: Left Arm; Cuff Size: Standard BP Diastolic 60 mm[Hg] Comments: Patient Position: Sitting; Cuff Location: Left Arm; Cuff Size: Standard Weight 118.125 lb Height 67.75 in Body Mass Index Calculated 18.09 kg/m2 Body Surface Area Calculated 1.63 m2 :20 Temperature 98 f Pulse 80 /min Comments: Pattern: Regular Respiration Rate 18 /min Comments: Pattern: Unlabored BP Systolic 102 mm[Hg] BP Diastolic 60 mm[Hg] Weight 119.1875 lb Height 67.75 in Body Mass Index Calculated 18.26 kg/m2 Body Surface Area Calculated 1.64 m2 :06 Temperature 98.5 f Comments: Method: Oral Pulse 64 /min Comments: Pattern: Regular Respiration Rate 16 /min Comments: Pattern: Unlabored BP Systolic 80 mm[Hg] Comments: Patient Position: Sitting; Cuff Location: Left Arm; Cuff Size: Standard BP Diastolic 48 mm[Hg] Comments: Patient Position: Sitting; Cuff Location: Left Arm; Cuff Size: Standard Weight 116.125 lb Height 67.75 in Body Mass Index Calculated 17.79 kg/m2 Body Surface Area Calculated 1.62 m2 :39 Pulse 64 /min Comments: Pattern: Regular Respiration Rate 20 /min Comments: Pattern: Unlabored BP Systolic 104 mm[Hg] Comments: Patient Position: Sitting; Cuff Location: Left Arm; Cuff Size: Large BP Diastolic 60 mm[Hg] Comments: Patient Position: Sitting; Cuff Location: Left Arm; Cuff Size: Large Weight 120.2 lb Height 67.75 in Body Mass Index Calculated 18.41 kg/m2 Body Surface Area Calculated 1.64 m2 :50 Comments: wearing shoes and clothes Temperature 97.4 f Comments: Method: Oral Pulse 62 /min Comments: Pattern: Regular Respiration Rate 16 /min Comments: Pattern: Unlabored BP Systolic 112 mm[Hg] Comments: Patient Position: Sitting; Cuff Location: Left Arm; Cuff Size: Standard BP Diastolic 62 mm[Hg] Comments: Patient Position: Sitting; Cuff Location: Left Arm; Cuff Size: Standard Weight 120.2 lb Height 67.75 in Body Mass Index Calculated 18.41 kg/m2 Body Surface Area Calculated 1.64 m2 :52 Temperature 97.1 f Comments: Method: Oral Pulse 60 /min Comments: Pattern: Regular Respiration Rate 20 /min Comments: Pattern: Unlabored BP Systolic 118 mm[Hg] Comments: Patient Position: Sitting; Cuff Location: Left Arm; Cuff Size: Standard BP Diastolic 70 mm[Hg] Comments: Patient Position: Sitting; Cuff Location: Left Arm; Cuff Size: Standard Weight 120.25 lb Height 66.5 in Body Mass Index Calculated 19.12 kg/m2 Body Surface Area Calculated 1.62 m2 :07 Temperature 97.9 f Comments: Method: Oral Pulse 64 /min Comments: Pattern: Regular Respiration Rate 16 /min Comments: Pattern: Unlabored BP Systolic 118 mm[Hg] Comments: Patient Position: Sitting; Cuff Location: Left Arm; Cuff Size: Standard BP Diastolic 72 mm[Hg] Comments: Patient Position: Sitting; Cuff Location: Left Arm; Cuff Size: Standard Weight 118.375 lb :46 Pulse 60 /min Comments: Pattern: Regular Respiration Rate 16 /min Comments: Pattern: Unlabored BP Systolic 104 mm[Hg] Comments: Patient Position: Sitting; Cuff Location: Left Arm; Cuff Size: Standard BP Diastolic 60 mm[Hg] Comments: Patient Position: Sitting; Cuff Location: Left Arm; Cuff Size: Standard Weight 118.375 lb :23 Pulse 60 /min Comments: Pattern: Regular Respiration Rate 20 /min Comments: Pattern: Unlabored BP Systolic 104 mm[Hg] Comments: Patient Position: Sitting; Cuff Location: Left Arm; Cuff Size: Standard BP Diastolic 68 mm[Hg] Comments: Patient Position: Sitting; Cuff Location: Left Arm; Cuff Size: Standard Weight 120.3125 lb :37 Pulse 68 /min Comments: Pattern: Regular Respiration Rate 18 /min Comments: Pattern: Unlabored BP Systolic 102 mm[Hg] Comments: Patient Position: Sitting; Cuff Location: Left Arm; Cuff Size: Standard BP Diastolic 66 mm[Hg] Comments: Patient Position: Sitting; Cuff Location: Left Arm; Cuff Size: Standard Weight 125.4375 lb :20 Pulse 60 /min Comments: Pattern: Regular Respiration Rate 20 /min Comments: Pattern: Unlabored BP Systolic 110 mm[Hg] Comments: Patient Position: Sitting; Cuff Location: Left Arm; Cuff Size: Standard BP Diastolic 60 mm[Hg] Comments: Patient Position: Sitting; Cuff Location: Left Arm; Cuff Size: Standard Weight 127.5 lb Height 0 in Head Circumference 0.00 cm :22 Pulse 60 /min Comments: Pattern: Regular Respiration Rate 16 /min Comments: Pattern: Unlabored BP Systolic 110 mm[Hg] Comments: Patient Position: Sitting; Cuff Location: Left Arm; Cuff Size: Standard BP Diastolic 68 mm[Hg] Comments: Patient Position: Sitting; Cuff Location: Left Arm; Cuff Size: Standard Weight 126.0625 lb Height 0 in Head Circumference 0.00 cm :15 Pulse 72 /min Comments: Pattern: Regular Respiration Rate 16 /min Comments: Pattern: Unlabored BP Systolic 110 mm[Hg] Comments: Patient Position: Sitting; Cuff Location: Left Arm; Cuff Size: Standard BP Diastolic 62 mm[Hg] Comments: Patient Position: Sitting; Cuff Location: Left Arm; Cuff Size: Standard Weight 126.0625 lb Height 0 in Head Circumference 0.00 cm :20 Temperature 98.4 f Comments: Method: Oral Pulse 76 /min Comments: Pattern: Regular Respiration Rate 18 /min Comments: Pattern: Unlabored BP Systolic 104 mm[Hg] Comments: Patient Position: Sitting; Cuff Location: Left Arm; Cuff Size: Standard BP Diastolic 60 mm[Hg] Comments: Patient Position: Sitting; Cuff Location: Left Arm; Cuff Size: Standard Weight 125.0625 lb Height 0 in Head Circumference 0.00 cm :15 Temperature 97.9 f Comments: Method: Oral Pulse 74 /min Comments: Pattern: Regular Respiration Rate 18 /min Comments: Pattern: Undefined BP Systolic 88 mm[Hg] Comments: Patient Position: Standing; Cuff Location: Undefined; Cuff Size: Undefined BP Diastolic 60 mm[Hg] Comments: Patient Position: Standing; Cuff Location: Undefined; Cuff Size: Undefined Weight 126 lb Height 0 in Head Circumference 0.00 cm Results Date Description Value Details :37 Comprehensive Metabolic Profil Comments: [facility] [address] [place], [address] GAP 6 (Normal) Range: 5-15 CO2 28.0 mmol/L (Normal) Range: 21.0-32.0 CL 107 mmol/L (Normal) Range: 98-107 K 4.3 mmol/L (Normal) Range: 3.5-5.1 NA 141 mmol/L (Normal) Range: 136-145 T BILI 0.20 mg/dL (Normal) Range: 0.20-1.00 ALT 32 U/L (Normal) Range: 13-56 ALK P 61 U/L (Normal) Range: 45-117 AST 39 U/L (Abnormal) Range: 15-37 CA 8.6 mg/dL (Normal) Range: 8.5-10.1 A/G 0.8 {RATIO} (Abnormal) Range: 0.9-2.4 GLOB 4.1 g/dL (Normal) Range: 2.2-4.2 ALB 3.2 g/dL (Normal) Range: 3.2-5.0 T PROT 7.3 g/dL (Normal) Range: 6.4-8.2 BUN/CRE 16.7 {RATIO} (Normal) Range: 10-20 EST GFR - AA 105 mL/min (Normal) Comments: GFR Calc EST GFR 87 mL/min (Normal) Comments: Non- GFR Calc CREAT,SERUM 0.72 mg/dL (Normal) Range: 0.55-1.02 Comments: The validity of the calculated GFR AND GFRAA in patients over70 years has not been determined. Clinical correlation isessential. BUN 12 mg/dL (Normal) Range: 7-18 GLU 75 mg/dL (Normal) Range: 74-106 Comments: Please note revised GLUCOSE reference range nirwupdws11/02/2018. :37 Magnesium Comments: [facility] [address] [place], [phone] MG 2.2 mg/dL (Normal) Range: 1.6-2.6 :37 Basic Metabolic Profile (BMP) Comments: RESULT(S) PREVIOUSLY REPORTED ON MANUAL REQUISITION DURINGDOWNTIME.[facility] [address] [place], [id number] GAP 5 (Normal) Range: 5-15 CO2 28.0 mmol/L (Normal) Range: 21.0-32.0 CL 109 mmol/L (Abnormal) Range: 98-107 K 4.3 mmol/L (Normal) Range: 3.5-5.1 NA 142 mmol/L (Normal) Range: 136-145 CA 8.6 mg/dL (Normal) Range: 8.5-10.1 BUN/CRE 16.7 {RATIO} (Normal) Range: 10-20 EST GFR - AA 105 mL/min (Normal) EST GFR 87 mL/min (Normal) CREAT,SERUM 0.72 mg/dL (Normal) Range: 0.55-1.02 Comments: The validity of the calculated GFR AND GFRAA in patients over70 years has not been determined. Clinical correlation isessential. BUN 12 mg/dL (Normal) Range: 7-18 GLU 80 mg/dL (Normal) Range: 74-106 Comments: Please note revised GLUCOSE reference range qfxilkwkm99/02/2018. :37 PTHIN 76.2 pg/mL (Normal) Comments: [facility] [address] [place], [id number] Range: 18.4-80.1 25-Tes-13089:00 Calcium, Urine 24HR Comments: [facility] [address] [place], [id number] 24HR UR Calcium Test not performed {mg/24_HR} (Normal) Range: 42.0-353.0 Urine Calcium < 5.0 (Normal) UR Total Volume 2850 ml (Normal) UR Collect Time 24.0 {HR} (Normal) Range: 24.0-24.0 Calcium UR pH 1 (Normal) :19 Comprehensive Metabolic Profil Comments: NA [facility] [address] [place], [place], [id number] GAP 5 (Normal) Range: 5-15 CO2 29.0 mmol/L (Normal) Range: 21.0-32.0 CL 108 mmol/L (Abnormal) Range: 98-107 K 4.2 mmol/L (Normal) Range: 3.5-5.1 NA 142 mmol/L (Normal) Range: 136-145 T BILI 0.10 mg/dL (Abnormal) Range: 0.20-1.00 ALT 27 U/L (Normal) Range: 13-56 ALK P 80 U/L (Normal) Range: 45-117 AST 32 U/L (Normal) Range: 15-37 CA 8.3 mg/dL (Abnormal) Range: 8.5-10.1 A/G 0.8 {RATIO} (Abnormal) Range: 0.9-2.4 GLOB 3.8 g/dL (Normal) Range: 2.2-4.2 ALB 3.2 g/dL (Normal) Range: 3.2-5.0 T PROT 7.0 g/dL (Normal) Range: 6.4-8.2 BUN/CRE 17.6 {RATIO} (Normal) Range: 10-20 EST GFR - AA 124 mL/min (Normal) Comments: GFR Calc EST GFR 102 mL/min (Normal) Comments: Non- GFR Calc CREAT,SERUM 0.62 mg/dL (Normal) Range: 0.55-1.02 Comments: The validity of the calculated GFR AND GFRAA in patients over70 years has not been determined. Clinical correlation isessential. BUN 11 mg/dL (Normal) Range: 7-18 GLU 92 mg/dL (Normal) Range: 74-106 Comments: Please note revised GLUCOSE reference range rsmrzprki50/02/2018. 59-Vgd-26968:19 Creatinine, Urine Comments: 24 HR URINENA [facility] [address] [place], [address] URINE CREAT 35.70 mg/dL (Normal) :19 Electrolytes, 24 HR UR Comments: 24 HR URINENA [facility] [address] [place], [id number] UR CL/24 hr Test not performed {mmol/24h} Range: 110-250 (Normal) Comments: AMENDED REPORT 11/17/1755 UR CL/24 hr previously reported as: 195 mmol/24h UR CL Test not performed mmol/L Comments: AMENDED REPORT 11/17/17953 UR CL previously reported as: 71 mmol/L (Normal) UR K/24 HR Test not performed {mmol/24h} Range: 25-125 (Normal) Comments: AMENDED REPORT 11/17/17953 UR K/24 HR previously reported as: 76.0 mmol/24h UR K Test not performed mmol/L Comments: AMENDED REPORT 11/17/17953 UR K previously reported as: 28.0 mmol/L (Normal) UR NA/24HR 165 {mmol/24h} (Normal) Range: 40-220 UR NA 60 mmol/L (Normal) UR TOTAL VOLUME 2750 mL (Normal) :19 Magnesium Comments: NA [facility] [address] [place], [phone] MG 2.3 mg/dL (Normal) Range: 1.6-2.6 :19 PTHIN 78.8 pg/mL (Normal) Comments: [facility] [address] [place], [phone] Range: 18.4-80.1 Comments: Please Note: PTH INTACT METHOD AND REFERENCE RANGE CHANGEEffective 07/23/2017. 29-Tey-16746:19 Vitamin D,25 Hydroxy Comments: [facility] [address] [place], [phone] Vitamin D 25-OH 56.0 ng/mL (Normal) Range: 29.95-100.01 Comments: Vitamin D 25(OH) Status Range Deficiency <20 ng/mL (50nmol/L) Insuffciency 20 - 30 ng/mL (50 - 75 nmol/L) Sufficiency 30 - 100 ng/mL (75 - 250 nmol/L) Toxicity >100 ng/mL (>250 nmol/L) 02-Oct-20179:05 Comprehensive Metabolic Profil Comments: [facility] [address] [place], [address] GAP 7 (Normal) Range: 5-15 CO2 27.0 mmol/L (Normal) Range: 21.0-32.0 CL 109 mmol/L (Abnormal) Range: 98-107 K 4.2 mmol/L (Normal) Range: 3.5-5.1 NA 143 mmol/L (Normal) Range: 136-145 T BILI 0.20 mg/dL (Normal) Range: 0.20-1.00 ALT 26 U/L (Normal) Range: 13-56 Comments: Please note revised ALT reference range qzlmckjha23/28/2018. ALK P 91 U/L (Normal) Range: 45-117 AST 33 U/L (Normal) Range: 15-37 CA 8.2 mg/dL (Abnormal) Range: 8.5-10.1 A/G 0.8 {RATIO} (Abnormal) Range: 0.9-2.4 GLOB 4.1 g/dL (Normal) Range: 2.2-4.2 ALB 3.3 g/dL (Normal) Range: 3.2-5.0 T PROT 7.4 g/dL (Normal) Range: 6.4-8.2 BUN/CRE 16.6 {RATIO} (Normal) Range: 10-20 EST GFR - AA 129 mL/min (Normal) Comments: GFR Calc EST GFR 106 mL/min (Normal) Comments: Non- GFR Calc CREAT,SERUM 0.60 mg/dL (Normal) Range: 0.55-1.02 Comments: The validity of the calculated GFR AND GFRAA in patients over70 years has not been determined. Clinical correlation isessential. BUN 10 mg/dL (Normal) Range: 7-18 GLU 80 mg/dL (Normal) Range: 74-106 Comments: Please note revised GLUCOSE reference range qogceokwu41/02/2018. :05 Magnesium Comments: [facility] [address] [place], [address] MG 2.5 mg/dL (Normal) Range: 1.6-2.6 Comments: Please note revised Magnesium reference range tpvizvifi54/15/2018. :05 PTHIN 98.4 pg/mL (Abnormal) Comments: [facility] [address] [place], [address] Range: 18.4-80.1 Comments: Please Note: PTH INTACT METHOD AND REFERENCE RANGE CHANGEEffective 07/23/2017. 11-Jtj-323173:07 SPEP (68449) Comments: PATIENT NOT FASTINGPERFORMED BY: [facility]SB[facility] [id number] BY: Feastie[address] [id number] Please note: SPR (Normal) Comments: Protein electrophoresis scan will follow via computer, mail, orcourier delivery. A/G Ratio 1.3 (Normal) Range: 0.7-1.7 Globulin, Total 3.0 g/dL (Normal) Range: 2.2-3.9 M-Supa Not Observed g/dL (Normal) Gamma Globulin 1.0 g/dL (Normal) Range: 0.4-1.8 Beta Globulin 1.0 g/dL (Normal) Range: 0.7-1.3 Gukep-5-Tinfhgkz 0.7 g/dL (Normal) Range: 0.4-1.0 Sadzk-5-Qhbipmcx 0.3 g/dL (Normal) Range: 0.0-0.4 Albumin 3.9 g/dL (Normal) Range: 2.9-4.4 Protein, Total, Serum 6.9 g/dL (Normal) Range: 6.0-8.5 17-Uza-452563:07 UPEP (36635) Comments: PATIENT NOT FASTINGPERFORMED BY: [employer] HadleyYgline.comUNC Health Pardee [id number] BY: [employer] [address] [id number] Please note: SPRCS (Normal) Comments: Protein electrophoresis scan will follow via computer, mail, orcourier delivery. M-Supa, % Not Observed % (Normal) Gamma Globulin, U 35.3 % (Normal) Beta Globulin, U 25.7 % (Normal) Flqck-8-Bvledmjz, U 24.2 % (Normal) Ttelf-2-Wmmxjkmf, U 5.0 % (Normal) Albumin, U 9.8 % (Normal) Protein,Total,Urine <4.0 mg/dL (Normal) Comments: Verified by repeat analysis 07-Ihg-564649:07 Vitamin D Hydroxy Comments: PATIENT NOT FASTINGPERFORMED BY: [employer]ide70 [facility] [id number] BY: [employer] [address] [id number] (511[address]) Vitamin D, 25-Hydroxy 45.2 ng/mL (Normal) Range: 30.0-100.0 Comments: Vitamin D deficiency has been defined by the [place] of[place]icine and an Endocrine Society practice guideline as alevel of serum 25-OH vitamin D less than 20 ng/mL (1,2).The Endocrine Society went on to further define vitamin Dinsufficiency as a level between 21 and 29 ng/mL (2).1. IOM ([place] of [employer]). 2010. Dietary reference intakes for calcium and D. [place]: The National Academies Press.2. Lucy MF, Dory DUMONT, Elaina ANDRES, et al. Evaluation, treatment, and prevention of vitamin D deficiency: an Endocrine Society clinical practice guideline. JCEM. 2010; 96(7):1911-30. 58-Mrj-430334:07 VITAMIN D, 1, 25-DIHYDROXY Comments: PATIENT NOT FASTINGPERFORMED BY: [employer]6370 [facility] [id number] BY: Lyft[address] [id number] ([address]) Calcitriol(1,25 di-OH Vit D) 120.0 pg/mL (Abnormal) Range: 19.9-79.3 34-Ioe-88581:15 URINE CALCIUM ROSALIA TIMED Comments: PATIENT NOT FASTINGPERFORMED BY: SAMANTHA [facility] Vragno8075 Hadley RoadWilliamblin [place] [id number] Information: START 07/20/17@710AM 24 Hour (78158) Calcium, Urine 24hr <16.0 {mg/24_hr} (Abnormal) Range: 100.0-300.0 Calcium, Urine <0.8 mg/dL (Normal) 30-Tlz-494397:07 TSH (06198) Comments: PATIENT NOT FASTINGPERFORMED BY: [facility] Pkckjj2017 [address] [facility] [place] [id number] BY: [address] [id number] TSH 2.930 {uIU/mL} (Normal) Range: 0.450-4.500 17-Gyv-508103:07 SED RATE ERYTHROCYTE Comments: PATIENT NOT FASTINGPERFORMED BY: [employer] Yqlgmq9921 [address] [facility] [place] [id number] BY: [address] [id number] (42353) Sedimentation Rate-Westergren 9 mm/h (Normal) Range: 0-40 :07 PHOSPHORUS (47817) Comments: PATIENT NOT FASTINGPERFORMED BY: [employer] Lqsaos[address]30 [address] [facility] [place] [id number] BY: Lab[address] [id number] Phosphorus, Serum 3.9 mg/dL (Normal) Range: 2.5-4.5 31-Vtk-301936:07 PARATHORMONE (96145) Comments: PATIENT NOT FASTINGPERFORMED BY: [facility] Oavkvf3685 [address] [facility] [place] [id number] BY: [address] [id number] PTH, Intact 34 pg/mL (Normal) Range: 15-65 09-Luf-567264:07 HEPATIC FUNCTION PANEL Comments: PATIENT NOT FASTINGPERFORMED BY: [facility]ixUniversity [facility]6370 [facility] [id number] BY: [address] [id number] (03676) ALT (SGPT) 18 [iU]/L (Normal) Range: 0-32 AST (SGOT) 30 [iU]/L (Normal) Range: 0-40 Alkaline Phosphatase, S 82 [iU]/L (Normal) Range: 39-117 Bilirubin, Direct 0.06 mg/dL (Normal) Range: 0.00-0.40 Bilirubin, Total <0.2 mg/dL (Normal) Range: 0.0-1.2 Albumin, Serum 4.3 g/dL (Normal) Range: 3.6-4.8 46-Ftl-908635:07 CBC (AUTO) (30413) Comments: PATIENT NOT FASTINGPERFORMED BY: LyftCharles [place] 7207970 [facility] [id number] BY: [address] [id number] Platelets 515 {x10E3/uL} (Abnormal) Range: 150-379 RDW 14.7 % (Normal) Range: 12.3-15.4 MCHC 32.6 g/dL (Normal) Range: 31.5-35.7 MCH 27.6 pg (Normal) Range: 26.6-33.0 MCV 85 fL (Normal) Range: 79-97 Hematocrit 37.7 % (Normal) Range: 34.0-46.6 Hemoglobin 12.3 g/dL (Normal) Range: 11.1-15.9 RBC 4.46 {x10E6/uL} (Normal) Range: 3.77-5.28 WBC 8.0 {x10E3/uL} (Normal) Range: 3.4-10.8 33-Hdu-621260:07 CALCIUM SERUM (81810) Comments: PATIENT NOT FASTINGPERFORMED BY: [facility] WestCozy QueenCharles V[place] 7207970 [facility] [id number] BY: [address] [id number] Calcium, Serum 9.3 mg/dL (Normal) Range: 8.7-10.3 45-Rwj-524397:07 C-REACTIVE PROTEIN Comments: PATIENT NOT FASTINGPERFORMED BY: LabCoRaritan [facility] Medical Center, Old BridgeYaysyz2460 [facility] [id number] BY: LabCoTeresa Ville 947117 [facility] [id number] (84422) C-Reactive Protein, Quant 2.0 mg/L (Normal) Range: 0.0-4.9 :19 METABOLIC PANEL, Comments: PATIENT WAS FASTINGPERFORMED BY: LabCoRaritan [facility] Medical Center, Old BridgeSeedpo7979 [facility] [id number] Information: [id number] COMPREHENSIVE (53082) ALT (SGPT) 20 [iU]/L (Normal) Range: 0-32 AST (SGOT) 37 [iU]/L (Normal) Range: 0-40 Alkaline Phosphatase, S 93 [iU]/L (Normal) Range: 39-117 Bilirubin, Total <0.2 mg/dL (Normal) Range: 0.0-1.2 A/G Ratio 1.2 (Normal) Range: 1.1-2.5 Globulin, Total 2.9 g/dL (Normal) Range: 1.5-4.5 Albumin, Serum 3.5 g/dL (Abnormal) Range: 3.6-4.8 Protein, Total, Serum 6.4 g/dL (Normal) Range: 6.0-8.5 Calcium, Serum 8.5 mg/dL (Abnormal) Range: 8.7-10.3 Carbon Dioxide, Total 23 mmol/L (Normal) Range: 18-29 Chloride, Serum 106 mmol/L (Normal) Range: 97-108 Potassium, Serum 4.5 mmol/L (Normal) Range: 3.5-5.2 Sodium, Serum 140 mmol/L (Normal) Range: 134-144 BUN/Creatinine Ratio 16 (Normal) Range: 11-26 eGFR If Africn Am 116 mL/min/1.73 (Normal) eGFR If NonAfricn Am 101 mL/min/1.73 (Normal) Creatinine, Serum 0.56 mg/dL (Abnormal) Range: 0.57-1.00 BUN 9 mg/dL (Normal) Range: 8-27 Glucose, Serum 86 mg/dL (Normal) Range: 65-99 :19 CALCIFIDIOL (09672) VIT D 25 Comments: PATIENT WAS FASTINGPERFORMED BY: [facility] Gnagrz7216 [facility] [id number] Vitamin D, 25-Hydroxy 61.1 ng/mL (Normal) Range: 30.0-100.0 Comments: Vitamin D deficiency has been defined by the [place] ofM[facility] Hospitalcine and an Endocrine Society practice guideline as alevel of serum 25-OH vitamin D less than 20 ng/mL (1,2).The Endocrine Society went on to further define vitamin Dinsufficiency as a level between 21 and 29 ng/mL (2).1. IOM ([place] of [employer]). 2010. Dietary reference intakes for calcium and D. [place]: The National Academies Press.2. Lucy MF, Dory DUMONT, Elaina ANDRES, et al. Evaluation, treatment, and prevention of vitamin D deficiency: an Endocrine Society clinical practice guideline. JCEM. 2010; 96(7):1911-30. :19 TSH (32003) Comments: PATIENT WAS FASTINGPERFORMED BY: [facility] Micunu8668 [facility] [place] [id number] TSH 2.950 {uIU/mL} (Normal) Range: 0.450-4.500 :19 CBC (AUTO) (45600) Comments: PATIENT WAS FASTINGPERFORMED BY: [facility] Ecmerf9937 [facility] [facility] [place] [id number] Platelets 533 {x10E3/uL} (Abnormal) Range: 150-379 RDW 16.1 % (Abnormal) Range: 12.3-15.4 MCHC 31.7 g/dL (Normal) Range: 31.5-35.7 MCH 25.2 pg (Abnormal) Range: 26.6-33.0 MCV 79 fL (Normal) Range: 79-97 Hematocrit 32.8 % (Abnormal) Range: 34.0-46.6 Hemoglobin 10.4 g/dL (Abnormal) Range: 11.1-15.9 RBC 4.13 {x10E6/uL} (Normal) Range: 3.77-5.28 WBC 6.6 {x10E3/uL} (Normal) Range: 3.4-10.8 :19 VITAMIN B-12 (CYANOCOBALAMIN) Comments: PATIENT WAS FASTINGPERFORMED BY: [facility] [id number] ([id number]) Vitamin B12 1184 pg/mL (Abnormal) Range: 211-946 :19 LIPID PANEL ([id number]) Comments: PATIENT WAS FASTINGPERFORMED BY: [facility] [id number] LDL/HDL Ratio 2.4 {ratio_units} (Normal) Range: 0.0-3.2 Comments: LDL/HDL Ratio Men Women 1/2 Avg.Risk 1.0 1.5 Av g.Risk 3.6 3.2 2X Avg.Risk 6.2 5.0 3X Avg.Risk 8.0 6.1 LDL Cholesterol Calc 90 mg/dL (Normal) Range: 0-99 VLDL Cholesterol Steven 32 mg/dL (Normal) Range: 5-40 HDL Cholesterol 38 mg/dL (Abnormal) Comments: According to ATP-III Guidelines, HDL-C >59 mg/dL is considered anegative risk factor for CHD. Triglycerides 160 mg/dL (Abnormal) Range: 0-149 Cholesterol, Total 160 mg/dL (Normal) Range: 100-199 40-Wri-[id number]:15 HPV automatic Comments: Source.............Cervical;EndocervicalNo. of containers..01 CYTYC Thin Prep VialPATIENT NOT FASTINGPERFORMED BY: [facility] [id number] BY: =G L ([id number]) [facility] Sdzwdxuaug081 [facility] [id number] Information: [id number] HPV, high-risk Negative Comments: This high-risk HPV test detects thirteen high- risk types(16/18/31/33/35/39/45/51/52/56/58/59/68) without differentiation. . (Normal) Note: PAPSMR (Normal) Comments: The Pap smear is a screening test designed to aid in the detection ofpremalignant and malignant conditions of the uterine cervix. It is not adiagnostic procedure and should not be used as the sole mean s of detectingcervical cancer. Both false-positive and false-negative reports do occur. .This liquid based ThinPrep(R) pap test w as screened with theuse of an image guided system. See Note . (Normal) DIAGNOSIS: SPRCS (Normal) Comments: NEGATIVE FOR INTRAEPITHELIAL LESION AND MALIGNANCY.CELLULAR CHANGES ASSOCIATED WITH ATROPHY ARE PRESENT.Satisfactory for evaluation. Endocervical component may not bedistinguished in cases of atrophy.Z 11.51Jina Pat, Lean Engineer (ASCP) 60-Tdq-61291:15 CBC, Employee Comments: Test performed at:[facility] [address] [place] [place] [address] Absolute Lymph 2.70 {X10_3/ul} (Normal) Range: 0.83-4.51 Absolute Neut 3.2 {X10_3/uL} (Normal) Range: 2.0-7.7 BASO% 0.8 % (Normal) Range: 0-1 EO% 6.1 % (Abnormal) Range: 0-5 MONO% 13.5 % (Abnormal) Range: 0-10 LY% 36.7 % (Normal) Range: 19-41 NEUT% 42.8 % (Abnormal) Range: 47-70 MPV 9.5 fL (Normal) Range: 6.2-12.0 PLT 485 K/mm3 (Abnormal) Range: 150-450 RDW SD 50.0 fL (Abnormal) Range: 35.1-43.9 RDW CV 17.8 % (Abnormal) Range: 11.6-14.6 MCHC 30.4 {g/gl} (Abnormal) Range: 32-36 MCH 23.3 pg (Abnormal) Range: 27.0-32.0 MCV 76.5 fL (Abnormal) Range: 81-99 HCT 34.2 % (Abnormal) Range: 37-47 HGB 10.4 g/dL (Abnormal) Range: 12.0-15.0 RBC 4.47 {M/mm3} (Normal) Range: 4.2-5.4 WBC 7.4 K/mm3 (Normal) Range: 4.4-11.0 32-Foy-[id number]:15 Employee Profile Comments: Test performed at:[facility] [address] [place], [place] [id number] LDH 179 U/L (Normal) Range: 87-241 VLDL 30 mg/dL (Normal) Range: 5-40 LDL 71 mg/dL (Normal) Range: 0-130 HDLEMP 40 mg/dL (Normal) Comments: Reference Range HDL <40 mg/dL Low HDL Cholesterol HDL >or= 60 mg/dL High HDL Cholesterol HDL 40 mg/dL (Normal) Comments: Reference Range HDL <40 mg/dL Low HDL Cholesterol HDL >or= 60 mg/dL High HDL Cholesterol GAP 6 (Normal) Range: 5-15 CO2 26.0 mmol/L (Normal) Range: 21.0-32.0 CL 107 mmol/L (Normal) Range: 98-107 K 3.9 mmol/L (Normal) Range: 3.5-5.1 NA 139 mmol/L (Normal) Range: 136-145 TRIG 148 mg/dL (Normal) Range: 0-199 Comments: Serum Triglycerides Reference Interval Normal <150 mg/dL Borderline high 150 - 199 mg/dL High 200 - 499 mg/dL Very High > or = 500 mg/dL CHOL 141 mg/dL (Normal) Comments: <200 mg/dL Desirable 200-240 mg/dL Borderline >240 mg/dL High Risk D BILI 0.06 mg/dL (Normal) Range: 0.00-0.30 T BILI 0.20 mg/dL (Normal) Range: 0.00-4.00 ALT 35 U/L (Normal) Range: 12-78 ALK P 87 U/L (Normal) Range: 50-136 AST 39 U/L (Abnormal) Range: 15-37 PHOS 3.9 mg/dL (Normal) Range: 2.5-4.9 CA 8.4 mg/dL (Abnormal) Range: 8.5-10.1 A/G 0.8 {RATIO} (Abnormal) Range: 0.9-2.4 GLOB 3.9 g/dL (Normal) Range: 2.7-4.2 ALB 3.1 g/dL (Abnormal) Range: 3.4-5.0 T PROT 7.0 g/dL (Normal) Range: 6.4-8.2 URIC 3.7 mg/dL (Normal) Range: 2.6-6.0 BUN/CRE 12.9 {RATIO} (Normal) Range: 10-20 EST GFR - AA 110 mL/min (Normal) EST GFR 91 mL/min (Normal) CREAT,SERUM 0.7 mg/dL (Normal) Range: 0.6-1.0 BUN 9 mg/dL (Normal) Range: 7-18 GLU 88 mg/dL (Normal) Range: 70-110 93-Xxe-45604:15 Urinalysis, Employee Comments: Test performed at:[facility] [address] [place], [place] [id number] LEUK ESTERASE Negative /ul (Normal) OCCULT BLOOD-UR Negative /ul (Normal) NITRITE UR Negative (Normal) UROBILI Normal mg/dL (Normal) PROT DIPSTX Negative mg/dL (Normal) pH UR 6.5 (Normal) Range: 5.0 - 8.0 SP.GR. DIPSTX 1.010 (Normal) Range: 1.002-1.030 KETONE UR Negative mg/dL (Normal) BILIRUBIN URINE Negative mg/dL (Normal) GLUCOSE, UR Normal mg/dL (Normal) CLARITY Clear (Normal) COLOR Yellow (Normal) [id number]-[id number]:42 JUAN MANUEL CULTURE-OTHER ([id number]) Comments: PATIENT NOT FASTINGPERFORMED BY: [facility] BridgeRjczvw4432 [facility] [id number] Information: SRC:THRT [id number] Result 1 RRF (Normal) Comments: Routine respiratory álvaro Upper Respiratory Culture Final report (Normal) [id number]:26 Rapid Strep Test, Office ([id number]) Rapid Strep Test, Office Negative (Normal) 34-Roj-38981:29 CBCEM Comments: This patient requested that [facility] [employer] send to you acopy of their Yearly Employee Health Risk Assessment.A copy of this report is also given to the patient so theycan follow up with your office if they choose. tB% 0.8 % (Normal) Range: 0-1 tE% 7.1 % (Abnormal) Range: 0-5 tM% 12.1 % (Abnormal) Range: 0-10 tL% 34.8 % (Normal) Range: 19-41 tN% 45.2 % (Abnormal) Range: 47-70 MPV 9.6 fL (Normal) Range: 6.2-12.0 PLT 570 K/mm3 (Abnormal) Range: 150-450 RDWSD 45.9 fL (Abnormal) Range: 35.1-43.9 MCHC 31.0 {g/gl} (Abnormal) Range: 32-36 RDWCV 17.0 % (Abnormal) Range: 11.6-14.6 MCH 23.2 pg (Abnormal) Range: 27.0-32.0 MCV 74.9 fL (Abnormal) Range: 81-99 HCT 31.6 % (Abnormal) Range: 37-47 HGB 9.8 g/dL (Abnormal) Range: 12.0-15.0 RBC 4.22 {M/mm3} (Normal) Range: 4.2-5.4 WBC 7.3 K/mm3 (Normal) Range: 4.4-11.0 68-Lgh-87754:29 EMP Comments: This patient requested that [facility] [employer] send to you acopy of their Yearly Employee Health Risk Assessment.A copy of this report is also given to the patient so theycan follow up with your office if they choose. LDH 143 U/L (Normal) Range: 87-241 VLDL 20 mg/dL (Normal) Range: 5-40 LDL 72 mg/dL (Normal) Range: 0-130 HDLEMP 35 mg/dL (Normal) Comments: Reference RangeHDL <40 mg/dL Low HDL CholesterolHDL >or= 60 mg/dL High HDL Cholesterol GAP 5 (Normal) Range: 5-15 HDL 35 mg/dL (Abnormal) Comments: Reference RangeHDL <40 mg/dL Low HDL CholesterolHDL >or= 60 mg/dL High HDL Cholesterol CO2 27.0 mmol/L (Normal) Range: 21.0-32.0 CL 108 mmol/L (Abnormal) Range: 98-107 K 3.8 mmol/L (Normal) Range: 3.5-5.1 NA 140 mmol/L (Normal) Range: 136-145 TRIG 101 mg/dL (Normal) Range: 0-199 Comments: Serum Triglycerides Reference IntervalNormal <150 mg/dLBorderline high 150 - 199 mg/dLHigh 200 - 499 mg/ dLVery High > or = 500 mg/dL CHOL 127 mg/dL (Normal) Comments: <200 mg/dL Psxsefqbc240-452 mg/dL Borderline>240 mg/dL High Risk BID 0.06 mg/dL (Normal) Range: 0.00-0.30 BIT 0.20 mg/dL (Normal) Range: 0.00-1.00 ALT 30 U/L (Normal) Range: 12-78 ALK 72 U/L (Normal) Range: 50-136 AST 36 U/L (Normal) Range: 15-37 PHOS 3.8 mg/dL (Normal) Range: 2.5-4.9 CA 8.1 mg/dL (Abnormal) Range: 8.5-10.1 AG 0.9 {RATIO} (Normal) Range: 0.9-2.4 GLOB 3.6 g/dL (Normal) Range: 2.7-4.2 ALB 3.1 g/dL (Abnormal) Range: 3.4-5.0 TPROT 6.7 g/dL (Normal) Range: 6.4-8.2 URIC 4.4 mg/dL (Normal) Range: 2.6-6.0 BC 16.7 {RATIO} (Normal) Range: 10-20 GFRAA 132 mL/min (Normal) GFR 109 mL/min (Normal) CREAT 0.6 mg/dL (Normal) Range: 0.6-1.0 BUN 10 mg/dL (Normal) Range: 7-18 GLU 82 mg/dL (Normal) Range: 70-110 :29 UAEM Comments: This patient requested that [facility] [employer] send to you acopy of their Yearly Employee Health Risk Assessment.A copy of this report is also given to the patient so theycan follow up with your office if they choose. NESTOR Negative /ul (Normal) UOB Negative /ul (Normal) HERBER Negative (Normal) uPROTU Negative mg/dL (Normal) UROBU Normal mg/dL (Normal) KETU Negative mg/dL (Normal) ANJELICA 7.0 (Normal) Range: 5.0 - 8.0 SGU 1.005 (Normal) Range: 1.002-1.030 BILIU Negative mg/dL (Normal) GLUR Normal mg/dL (Normal) UCLAR Clear (Normal) UCOL Yellow (Normal) :59 BREAST UNILATERAL Radiology Report See Note (Normal) Comments: PROCEDURE: ULTRASOUND BREAST(S) - RIGHT REASON FOR EXAM: Female, 57 years old. Breast nodule seen on a recentmammogram. TECHNIQUE: Axial and longitudinal images of the RIGHT breast wereperformed with a high resolution ultrasound transducer. COMPARISON: Comparison is made with prior mammogram dated November. FINDINGS: RIGHT BREAST:The entire right breast was examined. There is evidence of homogeneousfibroglandular tissue. No solid or cystic mass lesion is seen. Routinemammographic follow-up is recommended. IMPRESSION:Normal examination. ASSESSMENT CATEGORY:BIRADS Category 2: Benign finding(s). Signed:Dimitri Frye M.D.December 11, 2012 at 10:40:58 AM [id number] Signed GP/GP If you are the referring physician and would like to consult with theradiologist who pr ovided this interpretation, please contact Asha Yap at [phone]. If this radiologist is unavailable, youwill be directed to another radiologist to assist. If you are a patient with a question regarding this report, pleasecontactyour referring physician directly. Professional Interpretation Provided By: Tradyo, Phone , These documents contain legall y protected and confidential healthinformation intended only for the use of the individual or entity namedabove. If you are not the intended recipient, you are hereby notifiedthatany disclosure, copying , distribution, or other use of these documents isstrictly prohibited. If you have received this information in error,pleasenotify the sender immediately and arrange for the return or destructionofthese documents. Dictated on 12/11/1205 by Nisreen Frye MDranscribed on 12/11/121045 by ITS IMPORTSign by Dimitri Frye MD on 12/11/121046 Sign by: Dimitri Frye MD 89-Nbx-55922:00 Thin prep Pap Comments: Source.............Cervical;EndocervicalNo. of containers..01 CYTYC Thin Prep VialPERFORMED BY: [facility] [address] [place] [facility] [place] [id number] Information: [place]- [id number] ([id number]) Note: PAPSMR (Normal) Comments: The Pap smear is a screening test designed to aid in the detection ofpremalignant and malignant conditions of the uterine cervix. It is not adiagnostic procedure and should not be used as the sole mean s of detectingcervical cancer. Both false-positive and false-negative reports do occur. .This liquid based ThinPrep(R) pap test w as screened with theuse of an image guided system.The HPV DNA reflex criteria were not met with this specimen resulttherefore, no HPV testing was performed. . See Note . (Normal) DIAGNOSIS: SPRCS (Normal) Comments: NEGATIVE FOR INTRAEPITHELIAL LESION AND MALIGNANCY.CELLULAR CHANGES ASSOCIATED WITH ATROPHY ARE PRESENT.Satisfactory for evaluation. Endocervical and/or squamous metaplasticcells (endocervical componen t) are present.V72.31 ; Routine gynecological examinationKai Lees Lean Engineer (ASCP) [id number]-[id number]:36 BILAT SCRN DIGITAL & CAD Radiology Report See Note (Normal) Comments: MAMMOGRAPHY - BILATERAL SCREENING REASON FOR EXAM: Female, 57 years old. Routine annual screeningexamination. PERTINENT HISTORY: Aunt with breast cancer. TECHNIQUE: Digital examination. Mediolat eral oblique (MLO) andcraniocaudad (CC) views of both breasts were obtained. CAD: CAD wasperformed on this study. COMPARISON: Comparison is made with prior studies dated September 17nd August. FINDINGS:The breast composition is extremely dense and this may lower thesensitivity of mammography. I suspect a 1.4-cm nodular density in the deep midportion of the rightbreast. Correlation wi ultrasound is recommended. No cluster ofmicrocalcification is seen. No other significant abnormalities are identified. There has been nosignificant change since the prior study. IMPRESSION:Findings suggestive of a cyst in the right breast as described.Correlation with ultrasound is recommended. ASSESSMENT CATEGORY:BIRADS Category 0: Incomplete. Need additional imaging evaluation. Sari snow these results will be sent to the patient by [facility]in [facility] days. Approximately 10% of breast cancers are not detected by mammography. Anormal mammogram should not delay biopsy of a clinical ly suspiciousabnormality. Signed:Dimitri Frye M.D.November 24, 2012 at 4:06:24 PM [id number] Signed GP/GP If you are the referring physician and would like to consult with nevaeh russell who provided this interpretation, please contact Asha Yap at [phone]. If this radiologist is unavailable, youwill be directed to another radiologist to assist. If you are a p atient with a question regarding this report, pleasecontactyour referring physician directly. Professional Interpretation Provided By: Tradyo, Phone , These documents contain legally protected and confidential healthinformation intended only for the use of the individual or entity namedabove. If you are not the intended recipient, you are hereby notifiedthatany discl osure, copying, distribution, or other use of these documents isstrictly prohibited. If you have received this information in error,pleasenotify the sender immediately and arrange for the return or dest ructionofthese documents. Dictated on 11/24/12 1536 by Nisreen Frye MDranscribed on 11/24/12 1608 by ITS IMPORTSign by Dimitri Frye MD on 11/24/12 1609 Sign by: Dimitri Frye MD 63-[id number]:37 Thin prep Pap Comments: Source.............Cervical;EndocervicalNo. of containers..01 CYTYC Thin Prep VialPERFORMED BY: [facility] [id number] Information: [id number] ([id number]) Note: PAPSMR (Normal) Comments: The Pap smear is a screening test designed to aid in the detection ofpremalignant and malignant conditions of the uterine cervix. It is not adiagnostic procedure and should not be used as the sole mean s of detectingcervical cancer. Both false-positive and false-negative reports do occur. .This liquid based ThinPrep(R) pap test w as screened with theuse of an image guided system.The HPV DNA reflex criteria were not met with this specimen resulttherefore, no HPV testing was performed. . See Note . (Normal) DIAGNOSIS: SPRCS (Normal) Comments: NEGATIVE FOR INTRAEPITHELIAL LESION AND MALIGNANCY.CELLULAR CHANGES ASSOCIATED WITH ATROPHY ARE PRESENT.Satisfactory for evaluation. Endocervical component may not bedistinguished in cases of atrophy.V 72.31 ; Routine gynecological examinationKaitlyn Henriquez Lean Engineer (ASCP) :16 CBCEM Comments: This patient requested that [facility] [employer] send to you acopy of their Yearly Employee Health Risk Assessment.A copy of this report is also given to the patient so theycan follow up with your office if they choose. MPV 8.6 fL (Normal) Range: 6.5-12.0 PLT 408 K/mm3 (Normal) Range: 150-450 RDW 14.1 % (Normal) Range: 11.6-14.6 MCH 27.4 pg (Normal) Range: 27.0-32.0 MCHC 32.9 g/dL (Normal) Range: 32-36 HCT 33.5 % (Abnormal) Range: 37-47 MCV 83.2 fL (Normal) Range: 81-99 HGB 11.0 g/dL (Abnormal) Range: 12.0-16.0 RBC 4.02 {M/mm3} (Abnormal) Range: 4.2-5.4 WBC 7.2 K/mm3 (Normal) Range: 4.4-11.0 :16 EMP Comments: This patient requested that [facility] [employer] send to you acopy of their Yearly Employee Health Risk Assessment.A copy of this report is also given to the patient so theycan follow up with your office if they choose. LDH 185 U/L (Normal) Range: 87-241 VLDL 16 mg/dL (Normal) Range: 5-40 LDL 91 mg/dL (Normal) Range: 0-130 HDL 36 mg/dL (Abnormal) Comments: Reference Range HDL <40 mg/dL Low HDL Cholesterol HDL >or= 60 mg/dL High HDL Cholesterol GAP 7 (Normal) Range: 5-15 CO2 28.0 mmol/L (Normal) Range: 21.0-32.0 CL 103 mmol/L (Normal) Range: 98-107 K 4.0 mmol/L (Normal) Range: 3.5-5.1 NA 138 mmol/L (Normal) Range: 136-145 TRIG 82 mg/dL (Normal) Comments: Serum Triglycerides Reference Interval Normal <150 mg/dL Borderline high 150 - 199 mg/dL High 200 - 499 mg/dL Very High > or = 500 mg/dL CHOL 143 mg/dL (Normal) Comments: <200 mg/dL Desirable 200-240 mg/dL Borderline >240 mg/dL High Risk BID 0.08 mg/dL (Normal) Range: 0.00-0.30 BIT 0.20 mg/dL (Normal) Range: 0.00-1.00 ALT 41 U/L (Normal) Range: 12-78 ALK 58 U/L (Normal) Range: 50-136 AST 45 U/L (Abnormal) Range: 15-37 PHOS 3.6 mg/dL (Normal) Range: 2.5-4.9 CA 8.6 mg/dL (Normal) Range: 8.5-10.1 AG 0.9 {RATIO} (Normal) Range: 0.9-2.4 GLOB 4.0 g/dL (Normal) Range: 2.7-4.2 ALB 3.4 g/dL (Normal) Range: 3.4-5.0 TPROT 7.4 g/dL (Normal) Range: 6.4-8.2 URIC 4.4 mg/dL (Normal) Range: 2.6-6.0 BC 18.6 {RATIO} (Normal) Range: 10-20 GFRAA 112 mL/min (Normal) GFR 92 mL/min (Normal) CREAT 0.7 mg/dL (Normal) Range: 0.6-1.0 BUN 13 mg/dL (Normal) Range: 7-18 GLU 91 mg/dL (Normal) Range: 70-110 61-Krf-36916:16 UAEM Comments: This patient requested that [facility] [employer] send to you acopy of their Yearly Employee Health Risk Assessment.A copy of this report is also given to the patient so theycan follow up with your office if they choose. NESTOR 1+ (Abnormal) UOB NEGATIVE (Normal) HERBER NEGATIVE (Normal) UROBU 0.2 EU/dl (Normal) Range: 0.2 - 1.0 ANJELICA 6.5 (Normal) Range: 5.0-8.0 uPROTU NEGATIVE (Normal) SGU <=1.005 (Normal) Range: 1.002-1.030 KETU NEGATIVE mg/dL (Normal) BILIU NEGATIVE (Normal) GLUR NEGATIVE (Normal) UCLAR CLEAR (Normal) UCOL YELLOW (Normal) 20-Dhn-44826:00 CULTURE, WOUND Comments: CHIN LESION WOUND CULTURE See Note (Normal) Comments: THERE ARE NO CLSI STANDARDS FOR INTERPRETATION OFTHIS DRUG-ORGANISM COMBINATION. AMOUNT GROWTH RARE ORGANISM 1: ROTHIA MUCILAGINOSA GRAM STAIN See Note (Normal) Comments: GRAM STAIN NO ORGANISMS SEEN [id number]-[id number]:36 BILAT SCRN DIGITAL & CAD Radiology Report See Note (Normal) Comments: MAMMOGRAPHY - BILATERAL SCREENING REASON FOR EXAM: Female, 56 years old. Routine annual screeningexamination. PERTINENT HISTORY: Aunt with breast cancer. TECHNIQUE: Digital examination. Mediolat eral oblique (MLO) andcraniocaudad (CC) views of both breasts were obtained. CAD: CAD wasperformed on this study. COMPARISON: Comparison is made with prior study dated August 16, 2010. FINDINGS:The b reast composition is extremely dense and this may lower thesensitivity of mammography. There are no dominant masses or suspicious calcifications. No other significant abnormalities are identified. Ther e has been nosignificant change since the prior study. IMPRESSION:Stable bilateral screening mammogram. Yearly follow-up recommended. (A) ASSESSMENT CATEGORY:BIRADS Category 2: Benign finding(s). A letter regarding these resultswill be sent to the patient by the facility within 30 days. Approximately 10% of breast cancers are not detected by mammography. Anormal mammogram should not delay biopsy of a clinically suspiciousabnormality. To consult with a radiologist regarding this report, please call our [id number] line @ Dictated on 09/17/11 1606 by Uday LLANOS,Carina ribed on 09/18/11 0749 by ITS IMPORTSign by Uday LLANOS,Dimitri on 09/18/11 9120 Sign by: Uday LLANOSDimitri [id number]:36 DEXA BONE DENSITY STUDY (HP) Radiology Report See Note (Normal) Comments: PROCEDURE: DUAL ENERGY X-RAY ABSORPTIOMETRY / DEXA. REASON FOR EXAM: Female, 56 years old. The patient is postmenopausal. TECHNIQUE: Bone Mineral Density (BMD) measurements of lumbar s pine andbila teral hips were obtained. COMPARISON: Comparison is made with prior study dated August 16, 2010. FINDINGS: Lumbar Spine (L1-L4): g/cm2 (0.850) / T- score (-2.7) / Z-score (-1.7)Left Femur Total: g/cm2 (0.799) / T-score (-1.7) / Z-score (-0.9)Right Femur Total: g/cm2 (0.803) / T-score (-1.6) / Z-score (-0.8) Since prior study, there has been a bone loss at 6.3% in the lumbarspine. IMPR ESSION:The patient is considered osteopenic, as outlined above, according toWorldHealth Organization (WHO) criteria. Fracture risk is moderate. Reference Information:The T-score is the number of standa rd deviations above or below thestandard which is normal for young adults at their peak bone mineraldensity. The World Health Organization (WHO) interprets the T-scores asfollows: Above -1 Nor mal bone densityBetween -1 and -2.5 OsteopeniaEqual to / or below -2.5 Osteoporosis As a practical clinical guideline, osteopenia may be graded as follows:Mild -1 through -1.5Moderate -1.6 through -2.0Severe -2.1 through -2.4 The Z-score is the number of standard deviations above or below age-matchedcontrols. A Z-score of less than -1.5 would be considered abnormal. References:1. NIH Osteoporo sis and Related Bone Diseases http://www.osteo.org2. International Society for Clinical Densitometry http://www.iscd.org3. National Osteoporosis Foundation http://www.nof.org To consult with a radiolo gist regarding this report, please call our [id number] line @ Dictated on 09/17/11 1537 by Jean Pierre Frye MDbed on 09/18/11 1021 by ITS IMPORTSign by Dimitri Frye MD on 09/18/11 1022 Sign by: Dimitri Frye MD [id number]:59 [facility] CHEST PA XRAY Radiology Report See Note (Normal) Comments: PROCEDURE: X-RAY CHEST REASON FOR EXAM: Female, 56 years old. Positive PPD TECHNIQUE: PA COMPARISON: October 07, 2006 FINDINGS: The lungs are expanded. There is no demonstrated parenc hymalabnorma lity.There is no demonstrated pleural abnormality. Normal heart and pericardium. Normal mediastinum and maciel. Normal visualized pulmonary arteries.Normalvisualized aortic arch and descending thoracic a brayan. Normal visualized thoracic spine. Normal visualized ribs, clavicles, andshoulders. There is no demonstrated abnormality of the visualized soft tissuestructures of the upper abdomen. IMPRESSION:No rmal x-ray examination of the chest. To consult with a radiologist regarding this report, please call our [id number] line @ Dictated on 08/28/11 1106 by CARMINA SALCEDO MD, BTranmarcosrileslee o n 08/28/11 1510 by ITS IMPORTSign by CARMINA SALCEDO MD on 08/28/11 1511 Sign by: CARMINA SALCEDO MD 25-Izk-895000:05 JUAN MANUEL CULTURE-OTHER ([id number]) Comments: PATIENT NOT FASTINGPERFORMED BY: [facility] Whflex9589 [facility] [id number] Information: SRC:THRT [id number] Result 1 RRF (Normal) Comments: Routine respiratory álvaro Upper Respiratory Culture Final report (Normal) [id number]:00 BILAT SCRN DIGITAL & CAD Radiology Report See Note (Normal) Comments: MAMMOGRAPHY - BILATERAL SCREENING INDICATION:Female, 55 years old. Routine annual screening examination. PERTINENT HISTORY:Non-contributory. The patient has had a prior right excisional biopsy. TECHNI QUE:Digital examination. Mediolateral oblique (MLO) and craniocaudad (CC)views of both breasts were obtained. CAD was performed on this study. COMPARISON:Comparison is made with prior study dated February 21, 2009. FINDINGS:The breast composition is extremely dense and this may lower thesensitivity of mammography. There are no masses or suspicious microcalcifications. No other significant abnormalities are identified. There has been nosignificant change since the prior study. IMPRESSION:Normal bilateral screening mammogram. Yearly follow-up recommended. ASSESSMENT CATEGORY:BI-RADS Category 2: Benig n finding(s). A letter regarding these resultswill be sent to the patient by the facility. Approximately 10% of breast cancers are not detected by mammography. Anormal mammogram should not delay biops y of a clinically suspiciousabnormality. Dictated on 08/16/10 1038 by Nisreen Fryeranscribed on 08/16/10 1239 by ITS IMPORTSign by Dimitri Frye on 08/16/10 1240 Sign by: Dimitri Frye [id number]-Onk-[id number]:59 DEXA BONE DENSITY STUDY (HP) Radiology Report See Note (Normal) Comments: CLINICAL:This is a 55-year-old female patient with post menopausal state. EXAMINATION:DUAL ENERGY X-RAY ABSORPTIOMETRY / DEXA. TECHNIQUE:Bone Density Measurements (BMD) of lumbar spine and bilateral hip s wereobtained using a Hivelocity scanner.. COMPARISON:Comparison is made with prior study dated February 21, 2009. FINDINGS: Lumbar Spine (L1-L4): g/cm2 (0.907) / T-score (-2.3) / Z-scor e (-1.0)Left Femur Total: g/cm2 (0.795) / T-score (-1.7) / Z-score (- 0.7)Right Femur Total: g/cm2 (0.807) / T-score (-1.6) / Z-score (-0.6) Since prior study, there has been an improvement of 2.3% in the bonedensity. IMPRESSION:The patient is considered osteopenic, as outlined above, according toWorldHealth Organization (WHO) criteria. Fracture risk is moderate. Reference Information:The T- score is the number of standard deviations above or below thestandard which is normal for young adults at their peak bone mineraldensity. The World Health Organization (WHO) interprets the T-scores asfo llows: Above -1 Normal bone densityBetween -1 and -2.5 OsteopeniaEqual to / or below -2.5 Osteoporosis As a practical clinical guideline, osteopenia may be graded as follows:Mild -1 through -1.5Moderate -1.6 through -2.0Severe -2.1 through -2.4 The Z-score is the number of standard deviations above or below age- matchedcontrols. A Z-score of less than -1.5 would be consid ered abnormal. References:1. NIH Osteoporosis and Related Bone Diseases http://www.osteo.org2. International Society for Clinical Densitometry http://www.iscd.org3. National Osteoporosis Foundation h ttp://www.nof.org Dictated on 08/16/10 1006 by Mckenna Fryescribed on 08/16/10 1446 by ITS IMPORTSign by Dimitri Frye on 08/16/10 1447 Sign by: Dimitri Frye [id number]-[id number]:23 Thin prep Pap Comments: Source.............Cervical;EndocervicalNo. of containers..01 CYTYC Thin Prep VialPERFORMED BY: [facility] [address] [id number] Information: [id number] ([id number]) Note: PAPSMR (Normal) Comments: The Pap smear is a screening test designed to aid in the detection ofpremalignant and malignant conditions of the uterine cervix. It is not adiagnostic procedure and should not be used as the sole mean s of detectingcervical cancer. Both false-positive and false-negative reports do occur. .The HPV DNA reflex criteria were not met with this specimen resulttherefore, no HPV testing was performed. . See Note . (Normal) DIAGNOSIS: SPRCS (Normal) Comments: NEGATIVE FOR INTRAEPITHELIAL LESION AND MALIGNANCY.Satisfactory for evaluation. Endocervical and/or squamous metaplasticcells (endocervical component) are present.V72.31 ; Routine gynecolog ical examina Yaa Louie, Lean Engineer (ASCP) :28 CHEST, PA AND LATERAL Radiology Report See Note (Normal) Comments: Exam Number: [id number] CLINICAL:54-year-old female with 3 month follow-up for a positive PPD X-RAY EXAMINATION - CHEST TECHNIQUE:PA and lateral views of the chest. COMPARISON:Exam done 09/29/09 FINDINGS: The last exam showed a 4-mm round density behind the sternum. It isstill visible. It could well represent a granuloma. There are nosigns of radiographically active tuberculosis. The lungs areotherwise c lear. Normal visualized trachea and bronchi. The lungs are well expanded. Normal pleura. Normal heart. Normal pulmonary arteries. Normal visualized aortic arch and descending thoracic aorta. Normal medi astinum. Normal hilar regions. Normal chest wall structures. Normal osseous structures. Unremarkable upper abdomen. IMPRESSION:4-mm nodular density visible behind the sternum, unchanged in alittle over 3 months and consistent with old granulomatous disease. Reported By: Saul Casiano M.D. :2 TSH 1.28 {uIU/mL} Range: 0.358-3.74 0 (Normal) :2 VIT D,25 02373 37.9 ng/mL (Normal) Range: 32.0-100.0 0 Comments: Recent studies consider the lower limit of 32.0 ng/mL to nikko threshold for optimal health.Tereso ANTON. J Nutr. 2005 Sep;135(2):317-22.Performed at: [address] [id number] Director: Ilene Nguyen MD :2 VITAMIN B12 536 pg/mL (Normal) Range: 254-1320 0 :38 CBC HCT 34.6 % (Abnormal) Range: 37-47 MCH 30.0 pg (Normal) Range: 27.0-32.0 MCHC 34.2 g/dL (Normal) Range: 32-36 MCV 87.8 fL (Normal) Range: 81-99 MPV 6.7 fL (Normal) Range: 6.5-12.0 PLT 415 K/mm3 (Normal) Range: 150-450 RDW 14.0 % (Normal) Range: 11.6-14.6 HGB 11.8 g/dL (Abnormal) Range: 12.0-16.0 RBC 3.94 {M/mm3} (Abnormal) Range: 4.2-5.4 WBC 7.6 K/mm3 (Normal) Range: 4.4-11.0 34-Izj-340325:13 CHEST, PA AND LATERAL Radiology Report See Note (Normal) Comments: Exam Number: [id number] TWO VIEWS OF THE CHEST HISTORYPositive PPD. PA and lateral views of the chest are compared to the AP view ofMay 24, 2005, and the PA and lateral views of October 04, 2006. Assee n in the lateral view, there is a 3-mm nodule in the retrosternalregion which was not seen previously. This is relatively dense andmay be calcified. There is borderline cardiomegaly. The diaphragmi s low and flat and compatible with chronic obstructive pulmonarydisease. There is mild prominence of interstitial markings diffusely.There are degenerative changes of the spine. IMPRESSIONThere is a 3- mm density seen in the retrosternal region not identifiedon the previous lateral view of October 07, 2006. This has an appearancewhich is most suggestive of a granuloma. Follow-up x-ray in 3 monthsis recommended. Reported By: SEAN FISHER M.D. [id number]:06 DEXA BONE DENSITY STUDY (HP) Radiology Report See Note (Normal) Comments: Exam Number: [id number] BONE DENSITOMETRY HISTORY: Screening osteoporosis TECHNIQUE Bone densitometry of the lumbar spine and both hips is now beingperformed. The best criteria for evaluation of ost eoporosis is theT-value, which represents the comparison of the patient's bone mass kat expected peak bone mass. For most patients, the mean T-value of B6zxyjyxy L4 is used to evaluate the lumbar spin e. To evaluate the hip,the lower T-value of the femoral neck or total hip is used. FINDINGSIn this patient, the mean T-value of L1 through L4 is -2.4, which isthe low end of the range of osteopenia. B one mineral density ismeasured at 2.3% greater than in 2001.Digital lateral view for evaluation of vertebral deformity only demonstrates no fractures.The T-value of the left femoral neck is -1.5, which is in the range ofosteopenia. The T-value of the total left hip is -1.6, which is in the range ofosteopenia. Bone mineral density is measured at 8.9% greater than ap1373.The T-value of the right femor al neck is -1.7, which is in the rangeof osteopenia.The T-value of the total right hip is -1.6, which is in the range ofosteopenia. IMPRESSIONThere is osteopenia of the lumbar spine and both hips. Reported By: SEAN FISHER M.D. 93-Gpt-[id number]:05 [facility] Report See Note (Normal) Comments: Exam Number: [id number] MAMMOGRAM, BILATERAL SCREENING DIGITAL AND CAD HISTORYRoutine screening. TECHNIQUE Full field digital images were obtained in mediolateral oblique andcraniocaudal proj ections. CA D images were reviewed. The current study is compared to the examinations of July 08, 2007,and March 09, 2008. FINDINGSThere is a severe extent of fibroglandular parenchyma present. Thebreast pare nchyma is diffusely dense, and there are numerous nodulespresent. There is no skin thickening or retraction, architecturaldistortion, or cluster of suspicious microcalcifications. Nodominant mass or n ew nodules are seen. If there is no suspiciouspalpable abnormality, followup mammogram in 1 year is recommended. IMPRESSIONThere is no radiographic evidence of malignancy identified. FINAL ASSESSMENTBe nign findings. BIRADS Category 2. A letter regarding these results has been sent to the patient. This interpretation was rendered by a radiologist certified under theMammography Quality Standards Ac t of 1991 (MQSA). The mammograms werealso examined with computer-aided detection software (Lema21, [employer], [employer].). Reported By: SEAN FISHER M.D. 12-Iqt-[id number]:10 Thin prep Pap Comments: Source.............Cervical;EndocervicalLMP / Prev Treat...BTP=[id number]. of containers..01 CYTYC Thin Prep VialPATIENT NOT FASTINGClinical Information: ADD [id number] ([id number]) PERFORMED BY: [facility] [place] [id number] . . (Normal) DIAGNOSIS: SPRCS (Normal) Comments: NEGATIVE FOR INTRAEPITHELIAL LESION AND MALIGNANCY.Satisfactory for evaluation. Endocervical and/or squamous metaplasticcells (endocervical component) are present.V72.31 ; Routine gynecolog ical examina Sharon Hernandez, Lean Engineer (ASCP) Note: PAPSMR (Normal) Comments: The Pap smear is a screening test designed to aid in the detection ofpremalignant and malignant conditions of the uterine cervix. It is not adiagnostic procedure and should not be used as the sole mean s of detectingcervical cancer. Both false-positive and false-negative reports do occur. .The HPV DNA reflex criteria were not met with this specimen resulttherefore, no HPV testing was performed. . :48 CBC, EMPLOYEE HCT 36.7 % (Abnormal) Range: 37-47 HGB 12.0 g/dL (Normal) Range: 12.0-16.0 MCH 28.5 pg (Normal) Range: 27.0-32.0 MCHC 32.7 g/dL (Normal) Range: 32-36 MCV 86.9 fL (Normal) Range: 81-99 MPV 8.2 fL (Normal) Range: 6.5-12.0 PLT 423 K/mm3 (Normal) Range: 150-450 RBC 4.22 {M/mm3} (Normal) Range: 4.2-5.4 RDW 13.6 % (Normal) Range: 11.6-14.6 WBC 5.3 K/mm3 (Normal) Range: 4.4-11.0 :48 EMP PROF A/G 0.8 {RATIO} (Abnormal) Range: 0.9-2.4 ALB 3.2 g/dL (Abnormal) Range: 3.4-5.0 ALK P 70 U/L (Normal) Range: 50-136 AST 37 U/L (Normal) Range: 15-37 BUN 11 mg/dL (Normal) Range: 7-18 BUN/CRE 15.7 {RATIO} (Normal) Range: 10-20 CA 8.4 mg/dL (Abnormal) Range: 8.5-10.1 CHOL 169 mg/dL (Normal) Comments: <200 mg/dL Desirable 200-240 mg/dL Borderline >240 mg/dL High Risk CREAT,SERUM 0.7 mg/dL (Normal) Range: 0.6-1.0 EST GFR 93 mL/min (Normal) EST GFR - AA 113 mL/min (Normal) Comments: ESTIMATED GLOMERULAR FILTRATION RATE The National Kidney Foundation (NKF) guidelines forChronic kidney disease (CKD) recommends all laboratoriesestimate the level of glomerular filtration ra te (GFR)in p atients from age 18 - 70 years of age.The eGFR for patient's is the eGFRmultiplied by 1.212. [facility] Laboratory uses the abbreviated Modification of Diet inRenal Disease (MDRD) study equati on to calculate the eGFR.The Estimated GFR equation is not applicable for patients<18 years of age or patients >70 years of age.The following conditions may alter the eGFR calculationresult: extre mes in body size, severe malnutrition orobesity, skeletal muscle disease, paraplegia, quadriplegia,vegetarian diet, , certain drug therapy and rapidlychanging kidney function. Association o f GFR and Staging of Kidney Disease*GFR (mL/min) With Kidney Disease W/O Kidney Disease>/= 90 Stage One Cedjoh87 - 89 Stage Two Suspect Decreased GFR30 - 59 Stage Three Stage Three15 - 29 Stage Four Stage Four< 15 or Dialysis Stage Five Stage Five *Each stage assumes the associ ated GFR level has been ineffect for at least three months.Additional studies & clinical assessments are indicated toconclude diagnosis of Chronic Kidney Disease (CKD). GLOB 3.9 g/dL (Normal) Range: 2.7-4.2 GLU 88 mg/dL (Normal) Range: 70-110 HDL 36 mg/dL (Normal) Comments: Reference Range HDL <40 mg/dL Low HDL Cholesterol HDL >or= 60 mg/dL High HDL Cholesterol LDH 136 U/L (Normal) Range: 100-190 LDL 118 mg/dL (Normal) Range: 0-130 PHOS 3.5 mg/dL (Normal) Range: 2.5-4.9 T BILI 0.07 mg/dL (Normal) Range: 0.00-1.00 T PROT 7.1 g/dL (Normal) Range: 6.4-8.2 TRIG 76 mg/dL (Normal) Comments: Serum Triglycerides Reference Interval Normal <150 mg/dL Borderline high 150 - 199 mg/dL High 200 - 499 mg/dL Very High > or = 500 mg/dL URIC 4.6 mg/dL (Normal) Range: 2.6-6.0 VLDL 15 mg/dL (Normal) Range: 5-40 :48 EMP URINALYSIS LEUK ESTERASE TRACE (Abnormal) OCCULT BLOOD-UR SeeNote (Normal) Comments: Result: NEGATIVE BILIRUBIN URINE SeeNote (Normal) Comments: Result: NEGATIVE CLARITY CLEAR (Normal) COLOR YELLOW (Normal) GLUCOSE, UR SeeNote (Normal) Comments: Result: NEGATIVE KETONE UR SeeNote mg/dL (Normal) Comments: Result: NEGATIVE NITRITE UR SeeNote (Normal) Comments: Result: NEGATIVE pH UR 6.0 (Normal) Range: 5.0-8.0 PROT DIPSTX SeeNote (Normal) Comments: Result: NEGATIVE SP.GR. DIPSTX 1.010 (Normal) Range: 1.002-1.030 UROBILI 0.2 EU/dl (Normal) Range: 0.2 - 1.0 :05 BILAT DIAG DIGITAL & CAD Radiology Report See Note (Normal) Comments: Exam Number: [id number] MAMMOGRAM, BILATERAL DIAGNOSTIC DIGITAL AND CAD HISTORYBilateral 6 month followup. Full field digital images were obtained in mediolateral oblique andcraniocaudal proj ections. CA D images were reviewed. The current study is compared to the examinations of March 2006 andJuly 2007. There is a severe degree of fibroglandular parenchyma present. Thebreast parenchyma is diffuse ly nodular. There is no skin thickeningor retraction, architectural distortion, or cluster of suspiciousmicrocalcifications. There is no dominant mass. No significantinterval change is identified. I f there is no suspicious palpableabnormality, followup mammogram in 1 year is recommended. IMPRESSIONThere is no radiographic evidence of malignancy identified. FINAL ASSESSMENTBenign findings. BIRAD S Category 2. A letter regarding these results has been sent to the patient. This interpretation was rendered by a radiologist certified under theMammography Quality Standards Act of 1992 (MQSA). The mammograms werealso examined with computer-aided detection software ([employer].). Reported By: SEAN FISHER M.D. :25 CBC, EMPLOYEE HCT 35.8 % (Abnormal) Range: 37-47 HGB 11.7 g/dL (Abnormal) Range: 12.0-16.0 MCH 26.8 pg (Abnormal) Range: 27.0-32.0 MCHC 32.8 g/dL (Normal) Range: 32-36 MCV 81.8 fL (Normal) Range: 81-99 MPV 8.7 fL (Normal) Range: 6.5-12.0 PLT 460 K/mm3 (Abnormal) Range: 150-450 RBC 4.38 {M/mm3} (Normal) Range: 4.2-5.4 RDW 15.3 % (Abnormal) Range: 11.6-14.6 WBC 7.2 K/mm3 (Normal) Range: 4.4-11.0 :25 EMP PROF A/G 0.9 {RATIO} (Normal) Range: 0.9-2.4 ALB 3.7 g/dL (Normal) Range: 3.4-5.0 ALK P 70 U/L (Normal) Range: 50-136 AST 49 U/L (Abnormal) Range: 15-37 BUN 12 mg/dL (Normal) Range: 7-18 BUN/CRE 15.0 {RATIO} (Normal) Range: 10-20 CA 9.0 mg/dL (Normal) Range: 8.5-10.1 CHOL 168 mg/dL (Normal) Comments: <200 mg/dL Desirable 200-240 mg/dL Borderline >240 mg/dL High Risk CREAT,SERUM 0.8 mg/dL (Normal) Range: 0.6-1.0 GLOB 4.1 g/dL (Normal) Range: 2.7-4.2 Comments: Please Note Reference Interval Change GLU 82 mg/dL (Normal) Range: 70-110 HDL 36 mg/dL (Normal) Comments: Reference Range HDL <40 mg/dL Low HDL Cholesterol HDL >or= 60 mg/dL High HDL Cholesterol LDH 141 U/L (Normal) Range: 100-190 LDL 110 mg/dL (Normal) Range: 0-130 PHOS 3.5 mg/dL (Normal) Range: 2.5-4.9 T BILI 0.18 mg/dL (Normal) Range: 0.00-1.00 T PROT 7.8 g/dL (Normal) Range: 6.4-8.2 TRIG 109 mg/dL (Normal) Comments: Serum Triglycerides Reference Interval Normal <150 mg/dL Borderline high 150 - 199 mg/dL High 200 - 499 mg/dL Very High > or = 500 mg/dL URIC 3.9 mg/dL (Normal) Range: 2.6-6.0 VLDL 22 mg/dL (Normal) Range: 5-40 38-Ioy-36408:25 EMP URINALYSIS BILIRUBIN URINE SeeNote (Normal) Comments: Result: NEGATIVE CLARITY CLEAR (Normal) COLOR YELLOW (Normal) GLUCOSE, UR SeeNote (Normal) Comments: Result: NEGATIVE KETONE UR SeeNote mg/dL (Normal) Comments: Result: NEGATIVE LEUK ESTERASE TRACE (Abnormal) NITRITE UR SeeNote (Normal) Comments: Result: NEGATIVE OCCULT BLOOD-UR SeeNote (Normal) Comments: Result: NEGATIVE pH UR 7.0 (Normal) Range: 5.0-8.0 PROT DIPSTX SeeNote (Normal) Comments: Result: NEGATIVE SP.GR. DIPSTX 1.010 (Normal) Range: 1.002-1.030 UROBILI 0.2 EU/dl (Normal) Range: 0.2 - 1.0 17-Upy-[id number]:32 UNILAT RT DIAG DIGITAL & CAD Radiology Report See Note (Normal) Comments: Exam Number: [id number] DIAGNOSTIC RIGHT MAMMOGRAM REASON FOR EXAMAbnormal screening mammogram. 2 lateral views obtained of the right breast as well as spotcompression in the MLO and CC proje ctions. Th e lobulated density compresses out. There is dense nodulararchitecture similar to multiple previous studies dating back bj3791. There is no discrete definable mass, malignant typemicrocalcifications o r architectural architectural distortion. DIAGNOSTIC LEFT MAMMOGRAMTrue lateral view was obtained of the left breast as well as spotcompression view in the craniocaudal projection and medially andlater ally roll craniocaudal views were obtained. There is heterogeneously dense moderately nodular breast architecturethroughout the left breast. Compression views demonstrate normalstromal tissue. The n odularity demonstrated on the screening viewis less well defined and appears to represent normal stromal tissuessimilar to multiple previous studies dating back to 2003. There areno malignant-type micr ocalcifications. There is no architecturaldistortion. IMPRESSIONDense, somewhat nodular stromal tissue bilateral breasts. No discretemass, malignant-type microcalcifications or architecturialdistorti on in either breast. As a further precaution, recommend shortinterval bilateral mammographic followup at 6 months. BIRADS 3. Reported By: MEDARDO RODRIGUEZ M.D. 4-Ihe-[id number]:08 [facility] Report See Note (Normal) Comments: Exam Number: [id number] MAMMOGRAM, BILATERAL SCREENING DIGITAL AND CAD HISTORYRoutine screening. Full field digital images were obtained in mediolateral oblique andcraniocaudal projections. CAD images w ere reviewed. The current study is compared to the examinations of June 2004 andgus2005. There is a severe extent of fibroglandular parenchyma present. Thereis no skin thickening or retraction, architectural distortion, orcluster of suspicious microcalcifications. There is a density in theouter left breast seen in the mid to posterior depths of the breastin the craniocaudal projection. This was not seen previously.On the right, there is lobulated density just deep to the nipple.There has been parenchymal density at this location. However, it didnot have this focal lobulated appearance an d further evaluation ofthis density is also recommended. For further evaluation of thesefindings, left roll craniocaudal and spot craniocaudal view isrecommended. Right true lateral and medial lateral oblique spotcompression views are recommended as well. Ultrasound may be needed. IMPRESSIONThere is change in the appearance of densities on both sides. Additional views are recommended. Ultrasound may be needed. FINAL ASSESSMENTNeed additional imaging evaluation. BIRADS Category 0. A letter regarding these results has been sent to the patient. This interpretation was rendered by a radiologist cert ified under theMammography Quality Standards Act of 1992 (MQSA). The mammograms werealso examined with computer-aided detection software ([employer].). Reported By: SEAN FISHER M.D. 1-Vqj-[id number]:08 DEXA BONE DENSITY STUDY () Radiology Report See Note (Normal) Comments: Exam Number: [id number] BONE DENSITOMETRY HISTORYPostmenopausal. TECHNIQUE Bone densitometry of the lumbar spine and left hip was performed. Thebest criteria for evaluation of osteoporosis is the T- value whichrepresents the comparison of the patient's bone mass to an expectedpeak bone mass. For most patients, the mean T-value of L1 through L4and the T-value of the total left hip are most useful. FINDINGSIn this patient, the mean T-value of L1 through L4 is -2.4, which isat the low end of the range of osteopenia. Digital lateral view for evaluation of vertebral deformity only demonstrates no o bvious compression fractures. The bone mineraldensity is measured at 4.1% greater than in 2001 and 0.4% greater thanin 2005.The T-value of the left femoral neck is -1.8, which is in the range ofosteope neelima. The T-value of the total left hip is -1.7, which is in the range ofosteopenia.Bone mineral density is measured at 4.9% greater than in 2001 and 0.8%less than in 2005. IMPRESSIONThere is osteopenia in the lumbar spine and total left hip. Reported By: SEAN FISHER M.D. 25-Rvk-[id number]:20 Thin prep Pap Comments: Source.............Cervical;EndocervicalLMP / Prev Treat...VEO=[id number];NoneNo. of containers..01 CYTYC Thin Prep VialPATIENT NOT FASTINGClinical Information: THIN PREP PERFORMED BY: ([id number]) [facility] [id number] . . (Normal) DIAGNOSIS: SPRCS (Normal) Comments: NEGATIVE FOR INTRAEPITHELIAL LESION AND MALIGNANCY.Satisfactory for evaluation. Endocervical and/or squamous metaplasticcells (endocervical component) are present.V72.31 ; Routine gynecolog ical examina tiLiudmila Ybarra Lean Engineer (ASCP) Note: PAPSMR (Normal) Comments: The Pap smear is a screening test designed to aid in the detection ofpremalignant and malignant conditions of the uterine cervix. It is not adiagnostic procedure and should not be used as the sole mean s of detectingcervical cancer. Both false-positive and false-negative reports do occur. .The HPV DNA reflex criteria were not met with this specimen resulttherefore, no HPV testing was performed. . :50 BMP Comments: COMMENTS: OR 10/17/06Precautions*: NOT APPLICABLE BUN 14 mg/dL (Normal) Range: 7-18 BUN/CRE 17.5 {RATIO} (Normal) Range: 10-20 CA 9.0 mg/dL (Normal) Range: 8.5-10.1 CL 100 mmol/L (Normal) Range: 98-107 CO2 27.9 mmol/L (Normal) Range: 22.0-29.0 CREAT,SERUM 0.8 mg/dL (Normal) Range: 0.6-1.0 GAP 10 (Normal) Range: 5-15 GLU 99 mg/dL (Normal) Range: 70-110 K 4.1 mmol/L (Normal) Range: 3.5-5.1 NA 138 mmol/L (Normal) Range: 136-145 :50 CBCD Comments: COMMENTS: OR 10/17/06Precautions*: NOT APPLICABLE BASO% 1.1 % (Abnormal) Range: 0-1 EO% 5.4 % (Abnormal) Range: 0-5 HCT 33.1 % (Abnormal) Range: 37-47 HGB 10.7 g/dL (Abnormal) Range: 12.0-16.0 LY% 34.5 % (Normal) Range: 19-41 MCH 25.1 pg (Abnormal) Range: 27.0-32.0 MCHC 32.3 g/dL (Normal) Range: 32-36 MCV 77.7 fL (Abnormal) Range: 81-99 MONO% 10.6 % (Abnormal) Range: 0-10 MPV 7.9 fL (Normal) Range: 6.5-12.0 NEUT% 48.4 % (Normal) Range: 47-70 PLT 444 K/mm3 (Normal) Range: 150-450 RBC 4.26 {M/mm3} (Normal) Range: 4.2-5.4 RDW 15.3 % (Abnormal) Range: 11.6-14.6 SMEAR COMMENT SeeNote (Normal) Comments: Result: LARGE PLATELETS WBC 7.3 K/mm3 (Normal) Range: 4.4-11.0 [id number]:50 ROUTINE UA Comments: COMMENTS: OR 10/17/06Precautions*: NOT APPLICABLEHAS PATIENT HAD X-RAYS WITH CONTRAST THIS ADMISSION? N BILIRUBIN URINE SeeNote (Normal) Comments: Result: Negative CLARITY Clear (Normal) COLOR Yellow (Normal) GLUCOSE, UR SeeNote (Normal) Comments: Result: Negative KETONE UR SeeNote mg/dL (Normal) Comments: Result: Negative LEUK ESTERASE SeeNote (Normal) Comments: Result: Negative NITRITE UR SeeNote (Normal) Comments: Result: Negative OCCULT BLOOD-UR SeeNote (Normal) Comments: Result: Negative pH UR 5.0 (Normal) Range: 5.0-8.0 PROT DIPSTX SeeNote (Normal) Comments: Result: Negative SP.GR. DIPSTX 1.020 (Normal) Range: 1.002-1.030 UROBILI 0.2 EU/dl (Normal) Range: 0.2 - 1.0 Plan of Care Name Dates Details Instructions Postmenopausal : Self breast exam Indication: Postmenopausal Well woman exam : HPV Vaccine Information 2005 Indication: Well woman exam Well woman exam : Self breast exam Indication: Well woman exam Well woman exam : *Well Female Maintenance ([facility]) Indication: Well woman exam Well woman exam : Pap/Pelvic/Bimanual/Rectal/Breast Exam was done. 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, disuse Postmenopausal : Reviewed Diagnostic Tests Indication: Postmenopausal Encounter for screening for malignant neoplasm of colon (Renamed from Special screening for malignant neoplasms, colon) : *Colon Cancer Screening Indication: Encounter for screening for malignant neoplasm of colon (Renamed from Special screening for malignant neoplasms, colon) Well woman exam (Renamed from Encounter for well woman exam) : Self breast exam Indication: Well woman exam (Renamed from Encounter for well woman exam) Well woman exam (Renamed from Encounter for well woman exam) : *Well Female Maintenance ([facility]) Indication: Well woman exam (Renamed from Encounter for well woman exam) Encounter for screening mammogram for breast cancer (Renamed from Encounter for screening mammogram for malignant neoplasm of breast) : Eprescribed prescriptions (G8553) Indication: Encounter for screening mammogram for breast cancer (Renamed from Encounter for screening mammogram for malignant neoplasm of breast) Encounter for screening for malignant neoplasm of colon (Renamed from Special screening for malignant neoplasms, colon) : *Colon Cancer Screening Indication: Encounter for screening for malignant neoplasm of colon (Renamed from Special screening for malignant neoplasms, colon) Well woman exam : Safe sex Indication: Well woman exam Well woman exam : HPV Vaccine Information 2005 Indication: Well woman exam Well woman exam : Self breast exam Indication: Well woman exam Well woman exam : *Well Female Maintenance ([facility]) Indication: Well woman exam Well woman exam : Pap/Pelvic/Bimanual/Rectal/Breast Exam was done. Indication: Well woman exam Annual physical exam : Reviewed Lab Indication: Annual physical exam Breast screening : Self breast exam Indication: Breast screening Breast screening : *Colon Cancer Screening Indication: Breast screening Breast screening : *Well Female Maintenance (KF) Indication: Breast screening Other specified viral infection, in conditions classified elsewhere and of unspecified site : *URI Symptoms Indication: Other specified viral infection, in conditions classified elsewhere and of unspecified site Other specified viral infection, in conditions classified elsewhere and of unspecified site : *URI Treatment Indication: Other specified viral infection, in conditions classified elsewhere and of unspecified site Pharyngitis, acute : Sore throat: diagnosis and treatment Indication: Pharyngitis, acute Well woman exam : Self breast exam Indication: Well woman exam Well woman exam : *Colon Cancer Screening Indication: Well woman exam Well woman exam : *Well Female Maintenance (KF) Indication: Well woman exam Well woman exam : Pap/Pelvic/Bimanual/Rectal/Breast Exam was done. Indication: Well woman exam Well woman exam : Self breast exam Indication: Well woman exam Well woman exam : *Colon Cancer Screening Indication: Well woman exam Well woman exam : *Well Female Maintenance (KF) Indication: Well woman exam Well woman exam : Pap/Pelvic/Bimanual/Rectal/Breast Exam was done. Indication: Well woman exam Poison thalia : Solu Medrol Injection/ Education Indication: Poison thalia GERD (gastroesophageal reflux disease) : Follow up in 1 year Indication: GERD (gastroesophageal reflux disease) GERD (gastroesophageal reflux disease) : Heartburn *: gerd Indication: GERD (gastroesophageal reflux disease) Rash : Itching: rash Indication: Rash Well woman exam : Reviewed Lab Indication: Well woman exam Disorder of bone and cartilage : Reviewed Diagnostic Tests Indication: Disorder of bone and cartilage Well woman exam : Self breast exam Indication: Well woman exam Well woman exam : *Colon Cancer Screening Indication: Well woman exam Well woman exam : *Well Female Maintenance ([facility]F) Indication: Well woman exam Well woman exam : Pap/Pelvic/Bimanual/Rectal/Breast Exam was done. Indication: Well woman exam Bronchitis : *URI Treatment Indication: Bronchitis Bronchitis : *URI Symptoms Indication: Bronchitis Bronchitis : *Antibiotic Usage Education - Female Indication: Bronchitis Well woman exam : SELF BREAST EXAM Indication: Well woman exam Well woman exam : *Colon Cancer Screening Indication: Well woman exam Well woman exam : *Well Female Maintenance (KF) Indication: Well woman exam Well woman exam : Pap/Pelvic/Bimanual/Rectal/Breast Exam was done. Indication: Well woman exam Anemia : FOLLOW UP IN 1 YEAR Indication: Anemia Fatigue : *fatigue education Indication: Fatigue Anemia : Reviewed Lab Indication: Anemia GERD (gastroesophageal reflux disease) : GERD Education Indication: GERD (gastroesophageal reflux disease) Well woman exam : Self Breast Exam Education Indication: Well woman exam Well woman exam : *Colon Cancer Screening pt had scope <10 yrs Indication: Well woman exam Well woman exam : Pap/Pelvic/Bimanual/Rectal/Breast Exam was done. Indication: Well woman exam Well woman exam : Well Female Maintenance (KF) Indication: Well woman exam Osteoporosis : Well Female Maintenance (KF) Indication: Osteoporosis GERD (gastroesophageal reflux disease) : GERD Education Indication: GERD (gastroesophageal reflux disease) Well woman exam : *Colon Cancer Screening PT HAD SCOPE NEG COUPLE YRS AGO Indication: Well woman exam Osteoporosis : Well Female Maintenance (KF) Indication: Osteoporosis Well woman exam : Pap/Pelvic/Bimanual/Rectal/Breast Exam was done. Indication: Well woman exam Osteoporosis : Well Female Maintenance (KF) Indication: Osteoporosis Well woman exam : Pap/Pelvic/Bimanual/Rectal/Breast Exam was done. Indication: Well woman exam Well woman exam : Well Female Maintenance (KF) Indication: Well woman exam Planned Observations LIPID PANEL ([id number])Indication: Encounter for screening for lipid disorder On: 51-Hvw-110897:18 Request ALKALINE PHOSPHATASE (45554)Indication: Osteoporosis, disuse On: 34-Mgb-931906:05 Request LIPID PANEL ([id number])Indication: Encounter for screening for lipid disorder On: 8-Zfm-637264:17 Request TSH (THYROID STIMULATING HORMONE) ([id number])Indication: Well woman exam (Renamed from Encounter for well woman exam) On: :43 Request LIPID PANEL ([id number])Indication: Well woman exam (Renamed from Encounter for well woman exam) On: :43 Request METABOLIC PANEL, COMPREHENSIVE ([id number])Indication: Well woman exam (Renamed from Encounter for well woman exam) On: :43 Request CBC & PLATELETS (AUTO) ([id number])Indication: Well woman exam (Renamed from Encounter for well woman exam) On: :43 Request CALCIFEDIOL ([id number])Indication: Well woman exam (Renamed from Encounter for well woman exam) On: :43 Request VITAMIN B12 AND FOLATES ([id number])Indication: Well woman exam (Renamed from Encounter for well woman exam) On: :43 Request FECAL OCCULT- Tubes sent home ([id number])Indication: Encounter for screening for malignant neoplasm of colon (Renamed from Special screening for malignant neoplasms, colon) On: :52 Request Thin prep Pap ([id number]) (no STD testing)Indication: Well woman exam On: :52 Request FECAL OCCULT HGB ASSAY- tubes sent home ([id number])Indication: Breast screening On: :45 Request FECAL OCCULT HGB ASSAY- tubes sent home (26450)Indication: Well woman exam On: :51 Request Thin prep Pap (34714)Indication: Well woman exam On: :51 Request FECAL OCCULT HGB ASSAY- tubes sent home (27936)Indication: Well woman exam On: 89-Uot-380501:04 Request VITAMIN B-12 (CYANOCOBALAMIN) ([id number])Indication: B12 deficiency On: 18-Ugs-659080:36 Request FECAL OCCULT HGB ASSAY- tubes sent home (50702)Indication: Well woman exam On: 34-Qpx-973176:47 Request Culture, Aerobic, Bacterial ID ([id number])Indication: IMPETIGO (684.) On: 94-Icp-153282:59 Request Rapid Strep Test, Office ([id number])Indication: Pharyngitis, acute On: 48-Con-833792:10 Request CALCIFIDIOL (39614) VIT D 25Indication: Fatigue On: 36-Ioh-669610:21 Request TSH ([id number])Indication: Fatigue On: 58-Wbx-397346:21 Request VITAMIN B-12 (CYANOCOBALAMIN) (49201)Indication: B12 deficiency On: 31-Ziy-767040:21 Request Thin prep Pap ([id number])Indication: Well woman exam On: 59-Smr-401541:52 Request Planned Procedures SCREENING DIGITAL TOMOSYNTHESIS OF On: 15-Jul-2018 Intent BREAST ([id number])By: Amy Pickard DO DO, Amy MAMMOGRAM BREAST BILATERAL On: 23-Jun-2018 Intent SCREENING DIGITAL ([id number])By: Amy Pickard DO DO, Amy Aerosol Treatment ([id number])By: On: 11-Aug-2017 Intent Chanel Bush Comments: Lungs clear after aerosol treatment DEXA SCAN AXIAL SKELETON ([id number])By: On: 09-Jun-2017 Intent Amy Pickard DO Melly DO, Amy SCREENING DIGITAL TOMOSYNTHESIS OF On: 09-Jun-2017 Intent BREAST ([id number])By: Amy Pickard DO DO, Amy MAMMOGRAM, SCREENING, BOTH BREAST On: 13-Nov-2015 Intent ([id number])By: Amy Pickard DO Melly DO, Amy DEXA SCAN AXIAL SKELETON ([id number])By: On: 13-Nov-2015 Intent Amy Pickard DO Melly DO, Amy DEXA SCAN AXIAL SKELETON ([id number])By: On: 16-Nov-2014 Intent Amy Pickard DO DO, Amy MAMMOGRAM, SCREENING, BOTH BREAST On: 16-Nov-2014 Intent ([id number])By: Amy Pickard DO DO, Amy MAMMOGRAM, SCREENING, BOTH BREAST On: 29-Sep-2014 Intent ([id number])By: Amy Pickard DO, DO, Amy SPECIMEN HNDLNG/TRNSPRT, OFFC > LAB On: 23-May-2014 Intent ([id number])By: Meg MCKEON, Yady Nicholson B 12 Injection, 1000 mcg (J3420)By: On: 26-Nov-2013 Intent Melly DO, Amy Melly DO, Comments: lot: [id number]: ite/route: [place]/IMamt: 1mlVIS signed when applicableChelsea, FUNDRAISING DIRECTOR Amy DXA, BONE DENSITY, AXIAL SKELETON On: 26-Nov-2013 Intent ([id number])By: Melly DO, Amy Melly DO, Amy Eprescribed prescriptions On: 26-Nov-2013 Intent (G8553)By: Melly DO, Amy Melly DO, Amy Breast Screening - BilateralBy: On: 15-Nov-2013 Intent Melly DO, Amy Melly DO, Amy Breast Screening - BilateralBy: On: 01-Nov-2013 Intent Melly DO, Amy Melly DO, Amy Ultrasound - Breast - RightBy: On: 02-Dec-2012 Intent Melly DO, Amy Melly DO, Amy B 12 Injection, 1000 mcg ([id number])By: On: 25-Nov-2012 Intent Melly DO, Amy Melly DO, Comments: Lot:[id number]:06/17Dose:1mlRoute:IMSite:Ivan armGiven By:CHE signed Amy Solu- Medrol Injection, 125mg On: 16-Oct-2012 Intent ([id number])By: Melly DO, Amy Comments: Lot:[id number]/2015Dose:125mgRoute:IMSite:R hipGiven By:CHE signed Melly DO, Amy MAMMOGRAM, SCREENING, BOTH BREASTS On: 16-Oct-2012 Intent ([id number])By: Melly DO, Amy Melly DO, Amy Eprescribed prescriptions On: 16-Oct-2012 Intent (G8553)By: Melly DO, Amy Melly DO, Amy Eprescribed prescriptions On: 15-Jul-2012 Intent (G8553)By: Chanel Claire LPN DXA, BONE DENSITY, AXIAL SKELETON On: 02-Sep-2011 Intent ([id number])By: MellyAmy navarro DO, DO, Kathleen MAMMOGRAM, SCREENING, BOTH BREASTS On: 02-Sep-2011 Intent ([id number])By: Amy Pickard DO, DO, Kathleen Pulse Oximetry ([id number])By: Meg On: 22-May-2011 Intent Yady MCKEON Aerosol Treatment ([id number])By: Meg On: 22-May-2011 Intent Yady MCKEON DXA, BONE DENSITY, AXIAL SKELETON On: 16-Aug-2010 Intent ([id number])By: Chanel Claire LPN MAMMOGRAM, SCREENING, BOTH BREASTS On: 16-Aug-2010 Intent ([id number])By: Chanel Claire LPN Breast Screening - BilateralBy: On: 31-Jul-2010 Intent Amy Pickard DO, DO, Comments: mammo Amy B 12 Injection, 1000 mcg (J3420)By: On: 22-Nov-2009 Intent Amy Pickard DO, DO, Comments: Lot:[id number]:may 14 Dose:1000mcg/1mlRoute:IM Site:Right DeltoidGiven by: [facility] - ChestBy: Melly FIERRO, On: 22-Nov-2009 Intent Amy Ceja DO DXA, BONE DENSITY, AXIAL SKELETON On: 14-Oct-2008 Intent ([id number])By: Chanel Claire LPN MAMMOGRAM, SCREENING, BOTH BREASTS On: 14-Oct-2008 Intent ([id number])By: Chanel Claire LPN DXA, BONE DENSITY, AXIAL SKELETON On: 17-Jun-2007 Intent ([id number])By: Chanel Claire LPN MAMMOGRAM, SCREENING, BOTH BREASTS On: 17-Jun-2007 Intent ([id number])By: Chanel Claire LPN MAMMOGRAM, SCREENING, BOTH BREASTS On: 23-Apr-2006 Intent ([id number])By: Amy Pickard DO Comments: reviewed Amy Pickard DO Planned Medications INJECTION, METHYLPREDNISOLONE SODIUM SUCCINATE, UP TO 125 MG Ordered: 16-Oct-2012 Pending Amy Pickard DO, DO, Kathleen Vitamin B-12 1000 MCG/ML Injection Solution Ordered: 25-Nov-2012 Pending Amy Pickard DO, DO, Kathleen Vitamin B-12 1000 MCG/ML Injection Solution Ordered: 26-Nov-2013 Pending Amy Pickard DO, DO, Kathleen Instructions Name Dates Details Non-smoker : How to access health information online Indication: Non-smoker Non-smoker : How to access health information online - Detail Indication: Non-smoker Sinusitis, bacterial : Patient Instructions Indication: Sinusitis, bacterial Non-smoker : How to access health information online Indication: Non-smoker Non-smoker : How to access health information online - Detail Indication: Non-smoker Non-smoker : Patient Instructions Indication: Non-smoker Well woman exam : Patient Instructions Indication: Well woman exam Anemia : Patient Instructions Indication: Anemia Poison thalia : Patient Instructions Indication: Poison thalia GERD (gastroesophageal reflux disease) : Patient Instructions Indication: GERD (gastroesophageal reflux disease) Advance Directives Name Dates Details Immunization Registry [place] - Effective on Effective: 15-Jul-201807/15/2018. Expiration date unspecified Encounters Office Visit On: 15-Jul-2018 11:15 Encounter Reason: Well Women Exam - The patient feels well with minor complaints, has good energy level and is sleeping well. Pap smear: date of last pap:. Contraceptive history: The patient is not using any method of co End: 15-Jul-2018 12:22 ntraception at this time. Patient exercises a weekly. The patient reports that she does not perform monthly breast self exam. Calcium intake includes 1200 mg daily supplment. Menstruation: Last menstrual period date: (age 49).Encounter Diagnosis: Well woman exam, BMI less than 19,adult, Encounter for screening mammogram for breast cancer (Renamed from Encounter for screening mammogram for malignant neoplasm of breast), Postmenopausal, Encounter for screening for lipid disorder [facility] Phone Encounter On: 23-Jun-2018 20:55 Encounter Diagnosis: Breast screening End: 23-Jun-2018 21:01 [facility] Office Visit On: 11-Aug-2017 10:17 Encounter Reason: Cough - Symptoms include cough and runny nose. The cough is described as moist. Cough onset was 10 day(s) ago. The cough occurs intermittently. Symptoms are described as unchanged. Associated symptoms i End: 11-Aug-2017 10:58 nclude postnasal drainage and headache. Current treatment includes nonsteroidal anti-inflammatory drugs. Previous presentation included a cough, a runny nose, dyspnea and pleuritic chest pain. Note for Cough: Symptoms started 10 days ago-started with cold symptoms, now have cough- green sputum, headaches, nasal drainage-green, facial and ear pressure, feels rattle in chest, fever for 4 days. No body aches, SOB, CP, N/V, diarrhea, constipation. Encounter Diagnosis: Non-smoker, BMI less than 19,adult, Cough, Sinusitis, bacterial, Abnormal lung sounds [facility] Office Visit On: 17-Jul-2017 11:33 Encounter Reason: Follow up tests - Date: (07/10/17 dexa scan).Encounter Diagnosis: BMI less than 19,adult, Non-smoker, Postmenopausal, Osteoporosis, disuse End: 17-Jul-2017 12:09 [facility] Office Visit On: 09-Jun-2017 13:44 Encounter Reason: Well Women Exam - The patient feels well with minor complaints, has good energy level and is sleeping well. Pap smear: date of last pap: (1 yr). Contraceptive history: The patient is not using any metho End: 09-Jun-2017 14:18 d of contraception at this time. Patient exercises 3 - 4 times per week. The patient reports that she does not perform monthly breast self exam. Calcium intake includes 1200 mg daily supplment. The dave ent denies the use of oral contraceptives or hormone replacement therapy. Menstruation: Last menstrual period date: (49).Encounter Diagnosis: Well woman exam (Renamed from Encounter for well woman exam), Encounter for screening mammogram for breast cancer (Renamed from Encounter for screening mammogram for malignant neoplasm of breast), Postmenopausal, BMI less than 19,adult, Encounter for screening for malignant neoplasm of colon (Renamed from Special screening for malignant neoplasms, colon), Encounter for screening for lipid disorder [facility] Phone Encounter On: 02-Apr-2016 8:34 Encounter Diagnosis: Well woman exam (Renamed from Encounter for well woman exam) End: 02-Apr-2016 8:53 [facility] Office Visit On: 13-Nov-2015 8:48 Encounter Reason: Well Women Exam - The patient feels well with minor complaints, has good energy level and is sleeping well. Pap smear: date of last pap: (11/15). Contraceptive history: The patient is not using any metho End: 13-Nov-2015 9:48 d of contraception at this time. Patient exercises 3 - 4 times per week. The patient reports that she does not perform monthly breast self exam. Calcium intake includes 1200 mg daily supplment. The dave ent denies the use of oral contraceptives or hormone replacement therapy. Menstruation: Last menstrual period date: (age 49).Encounter Diagnosis: Well woman exam, Postmenopausal, Encounter for screening for malignant neoplasm of colon (Renamed from Special screening for malignant neoplasms, colon), Encounter for screening mammogram for breast cancer (Renamed from Encounter for screening mammogram f or malignant neoplasm of breast), Screening for HPV (human papillomavirus) (Renamed from Encounter for screening for human papillomavirus (HPV)), B12 deficiency, Low HDL (under 40), Anemia, OSTEOPENIA [facility] Office Visit On: 16-Nov-2014 8:42 Encounter Reason: Well Women Exam - The patient feels well with minor complaints, has good energy level and is sleeping well. Pap smear: date of last pap: (end november last year). Contraceptive history: The patient is n End: 16-Nov-2014 9:52 ot using any method of contraception at this time. Patient exercises 3 - 4 times per week. The patient reports that she does not perform monthly breast self exam. Calcium intake includes 1200 mg daily s upplment. The patient denies the use of oral contraceptives or hormone replacement therapy. Menstruation: Last menstrual period date: (10 yrs).Encounter Diagnosis: Breast screening (V76.10), Annual physical exam, Postmenopausal [facility] Lab Order On: 29-Sep-2014 13:39 Encounter Diagnosis: Screening for malignant neoplasm of breast End: 29-Sep-2014 13:49 [facility] Office Visit On: 18-Jul-2014 15:47 Encounter Reason: Skin Problems - The onset of the skin problems has been sudden and they have been occurring in a persistent pattern for 3 days. The course has been constant. The problem is characterized as a rash and a End: 18-Jul-2014 16:10 change in skin color. Lesions are described as red. The spots were first seen on the face. There has been no progression. There has been associated itching and pain.Encounter Diagnosis: Rash (782.1), IMPETIGO (684.) [facility] Office Visit On: 23-May-2014 15:19 Encounter Reason: Sore Throat - Symptoms include sore throat and odynophagia. The symptoms are symmetrical. There is no radiation. The patient describes the pain as burning. Onset was sudden day(s) ago. The symptoms occu End: 23-May-2014 15:51 r constantly. The patient describes this as moderate in severity and worsening. Symptoms are exacerbated by swallowing liquids and swallowing solids.Encounter Diagnosis: ACUTE PHARYNGITIS (462.), VIRAL INFECTION, UNSPECIFIED (079.99), Cold sore [facility] Office Visit On: 26-Nov-2013 7:50 Encounter Reason: Well Women Exam - The patient feels well with no complaints, has decreased energy level and is sleeping well. Pap smear: date of last pap: (1 yr). Patient exercises 3 - 4 times per week. The patient rep End: 26-Nov-2013 11:05 orts that she does not perform monthly breast self exam. Calcium intake includes 1200 mg with Vit D daily supplement.Encounter Diagnosis: Well Woman Exam (V72.31) (Pap,Mammo,Routine Female), B12 Deficiency (281.1), Anemia (285.9) [facility] Phone Encounter On: 15-Nov-2013 11:15 Encounter Diagnosis: Breast screening (V76.10) End: 15-Nov-2013 11:19 [facility] Phone Encounter On: 01-Nov-2013 10:44 Encounter Diagnosis: Breast screening (V76.10) End: 01-Nov-2013 10:48 [facility] Phone Encounter On: 02-Dec-2012 10:14 Encounter Diagnosis: Breast cyst (610.0) End: 02-Dec-2012 10:31 [facility] Office Visit On: 25-Nov-2012 16:03 Encounter Reason: Well Women Exam - The patient feels well with minor complaints, has good energy level and is sleeping well. Pap smear: date of last pap: (1 yr). Contraceptive history: The patient is not using any metho End: 25-Nov-2012 17:00 d of contraception at this time. Patient exercises a weekly. The patient reports that she does not perform monthly breast self exam. Calcium intake includes 1200 mg daily supplment. The patient denies t he use of oral contraceptives or hormone replacement therapy. Menstruation: Last menstrual period date:.Encounter Diagnosis: Well Woman Exam (V72.31) (Pap,Mammo,Routine Female), Stress Reaction (308.4), Low HDL (272.5), BLISTER, FOOT/TOE W/INFECTION (917.3), B12 Deficiency (281.1) [facility] Office Visit On: 16-Oct-2012 10:18 Encounter Reason: Rash - The last clinic visit was 5 day(s) ago. No changes in management were made at the last visit. Symptoms include skin blistering, skin bumps, pain, pruritus and skin redness. The skin rash is locat End: 16-Oct-2012 11:39 ed on the left arm. Onset was sudden. Onset followed skin contact with an allergen. The symptoms occur constantly. The patient describes this as moderate in severity.Encounter Diagnosis: Poison Thalia (692.6), Breast screening (V76.10) [facility] Office Visit On: 15-Jul-2012 15:03 Encounter Reason: Follow up for chronic medical issues - The patient feels well with minor complaints, has good energy level and is sleeping well. Patient has been compliant with instructions. Current medication use: no End: 15-Jul-2012 16:39 side effects and compliant with dosing regimen. Patient sleeps 6 hours per night. Nutrition: balanced diet and supplemental vitamins. The medical issues the patient is following up for include All ident ified problems below, gastric reflux and osteoporosis/osteopenia. blood pressure range : and weight :.Encounter Diagnosis: GERD (530.81), OSTEOPENIA, Grieving Reaction (309.0), B12 Deficiency (281.1), BRONCHITIS, NOT SPECIFIED ACUTE OR CHRONIC (490.), Anemia (285.9) [facility] Office Visit On: 05-Mar-2012 14:38 Encounter Reason: Rash - The last clinic visit was 2 day(s) ago. No changes in management were made at the last visit. Symptoms include skin blistering, skin bumps and pruritus, while symptoms do not include skin dryness End: 05-Mar-2012 14:52 . There is no known event that preceded symptom onset. The symptoms occur constantly. The patient describes this as moderate in severity and worsening. Symptoms are relieved by barrier creams, while symptoms are not relieved by cold compresses. Encounter Diagnosis: Rash (782.1) [facility] Office Visit On: 28-Oct-2011 10:46 Encounter Reason: Well Women Exam - The patient feels well with no complaints, has good energy level and is sleeping well. Pap smear: date of last pap: (Aug 16, 2010). Contraceptive history: The patient is not using any End: 28-Oct-2011 11:31 method of contraception at this time. Patient exercises 3 - 4 times per week. The patient's libido is normal. The patient reports that she does not perform monthly breast self exam. Calcium intake inclu nayana 1200 mg with Vit D daily supplement. The patient denies the use of oral contraceptives or hormone replacement therapy. Menstruation: Last menstrual period date: (post menopausal)., [ADDITIONAL REASON] Follow up tests - Date: (10/18/11 labs). , [ADDITIONAL REASON] Forms - The patient presents to the office to be evaluate for work form (see scanned in form filled out). Encounter Diagnosis: Well Woman Exam (V72.31) (Pap,Mammo,Routine Female), Disorder of bone and cartilage, unspecified (733.90) [facility] Office Visit On: 30-Sep-2011 16:45 Encounter Reason: Skin Lesions - The last clinic visit was 3 day(s) ago. No changes in management were made at the last visit. Symptoms include single skin lesion. Lesion(s) are located on the left side of the face. The End: 30-Sep-2011 17:01 patient describes the lesion(s) as crusted, draining and painful. Onset was sudden day(s) ago. There is no known event that preceded symptom onset. The symptoms occur constantly. The patient describes this as mild.Encounter Diagnosis: IMPETIGO (684.) [facility] Lab Order On: 02-Sep-2011 15:33 Encounter Diagnosis: Well Woman Exam (V72.31) (Pap,Mammo,Routine Female) End: 02-Sep-2011 15:34 [facility] Annotation/Addendum On: 22-May-2011 10:27 Encounter Diagnosis: Unspecified Diagnosis End: 22-May-2011 10:34 [facility] Office Visit On: 22-May-2011 10:03 Encounter Reason: Cold Symptoms - Onset was 6 day(s) ago. The symptoms occur constantly. The patient describes this as moderate in severity.Encounter Diagnosis: ACUTE PHARYNGITIS (462.), Cough (786.2), Wheezing (786.07), End: 22-May-2011 10:26 BRONCHITIS, NOT SPECIFIED ACUTE OR CHRONIC (490.) [facility] Office Visit On: 05-Feb-2011 15:46 Encounter Reason: Skin changes - The onset of the skin changes has been sudden (of blister on baby toe-- sore swollen now pussy dr and red toe ) and they have been occurring in a persistent pattern for 3 days. The course End: 05-Feb-2011 16:27 has been constant. The skin changes are described as moderate.Encounter Diagnosis: Foot Cellulitis (682.7), BLISTER, FOOT/TOE W/INFECTION (917.3) [facility] Annotation/Addendum On: 17-Aug-2010 15:38 Encounter Diagnosis: Disorder of bone and cartilage, unspecified (733.90) End: 17-Aug-2010 15:39 [facility] Office Visit On: 16-Aug-2010 9:17 Encounter Reason: Well Women Exam - The patient feels well with minor complaints, has good energy level and is sleeping well. Pap smear: date of last pap: (). Contraceptive history: The patient is not using any method End: 16-Aug-2010 9:43 of contraception at this time. Patient exercises 3 - 4 times per week. The patient reports that she does not perform monthly breast self exam. Calcium intake includes 1200 mg daily supplment. The patien t denies the use of oral contraceptives or hormone replacement therapy. Menstruation: Last menstrual period date: (nimco at 49 yrs old).Encounter Diagnosis: Well Woman Exam (V72.31) (Pap,Mammo,Routine Female) [facility] Phone Encounter On: 31-Jul-2010 10:29 Encounter Diagnosis: Well Woman Exam (V72.31) (Pap,Mammo,Routine Female) End: 31-Jul-2010 10:33 [facility] Office Visit On: 23-Nov-2009 8:33 [facility] End: 23-Nov-2009 11:39 Office Visit On: 22-Nov-2009 13:37 Encounter Reason: Sleep Disturbance - The onset of the sleep disturbance has been gradual (on and off for the last couple of weeks) and has been occurring in a persistent pattern for 2 weeks. The course has been constant End: 22-Nov-2009 15:03 . The sleep disturbance is described as moderate. Encounter Diagnosis: Anemia (285.9), GERD (530.81), Abnormal Chest X-Ray (793.99), B12 Deficiency (281.1), Fatigue (780.79), Stress Reaction (308.4), Grieving Reaction (309.0) [facility] Phone Encounter On: 01-Mar-2009 9:15 [facility] End: 01-Mar-2009 9:16 Historical Summary On: 27-Feb-2009 8:22 [facility] End: 27-Feb-2009 8:33 Historical Summary On: 07-Dec-2008 9:49 [facility] End: 07-Dec-2008 9:51 Office Visit On: 14-Oct-2008 8:59 Encounter Reason: Well Women Exam - The patient feels well with minor complaints ,has good energy level and is sleeping poorly. Pap smear: date of last pap: (2 years ago). Contraceptive history: The patient is not using End: 14-Oct-2008 10:06 any method of contraception at this time. Patient exercises 3 - 4 times per week. The patient reports that she does not perform monthly breast self exam. Calcium intake includes 1200 mg daily supplment ,1200 mg with Vit D daily supplement ,1500 mg daily supplement ,1500 mg with Vit D daily supplement and 1 serving milk daily. The patient denies the use of oral contraceptives or hormone replacement therapy. Encounter Diagnosis: Well Woman Exam (V72.31) (Pap,Mammo,Routine Female) [facility] Office Visit On: 19-Aug-2008 8:20 Encounter Reason: Follow up for chronic medical issues - The patient feels well with minor complaints ,has good energy level and is sleeping well. Patient has been compliant with instructions. Current medication use: no End: 19-Aug-2008 8:47 side effects and compliant with dosing regimen. Patient sleeps 6 hours per night. Nutrition: balanced diet and supplemental vitamins. The medical issues the patient is following up for include All identified problems below. Encounter Diagnosis: GERD (530.81), Osteoporosis (733.00) [facility] Historical Summary On: 26-Nov-2007 10:14 [facility] End: 26-Nov-2007 10:15 Office Visit On: 17-Jun-2007 9:15 Encounter Reason: Well Women Exam - The patient feels well with no complaints ,has good energy level and is sleeping well. Pap smear: date of last pap: (04-09). Contraceptive history: The patient is not using any method o End: 17-Jun-2007 9:48 f contraception at this time. Patient exercises 3 - 4 times per week. The patient reports that she does not perform monthly breast self exam. Calcium intake includes 1200 mg daily supplment. The patient denies the use of oral contraceptives or hormone replacement therapy. Encounter Diagnosis: Well Woman Exam (V72.31) (Pap,Mammo,Routine Female), Osteoporosis (733.00), GERD (530.81) [facility] Office Visit On: 13-Oct-2006 14:14 Encounter Reason: Preoperative evaluation - The patient feels well with no complaints (DR BROWN REQUEST PRE-OPERATIVE EVALUATION) ,has good energy level and is sleeping well. Surgical procedures include: other (bunion). End: 13-Oct-2006 14:38 Date of procedure: (10-17-06). There have been no problems with general anesthesia or blood/blood products. Encounter Diagnosis: Pre-operative examination, unspecified (V72.84), GERD (530.81), Osteoporosis (733.00), Anemia (285.9), B12 Deficiency (281.1) [facility] Historical Summary On: 08-Aug-2006 9:26 [facility] End: 08-Aug-2006 9:28 Office Visit On: 23-Apr-2006 13:10 Encounter Reason: Well Women Exam - The patient feels well with no complaints and has good energy level. Pap smear: date of last pap: (). Contraceptive history: The patient is not using any method of contraception End: 23-Apr-2006 13:53 at this time. Patient exercises 3 - 4 times per week. The patient reports that she does not perform monthly breast self exam. Calcium intake includes 1200 mg daily supplment. . Encounter Diagnosis: Osteoporosis (733.00), Well Woman Exam (V72.31) (Pap,Mammo,Routine Female) [facility] Historical Summary On: 22-Apr-2006 21:15 [facility] End: 22-Apr-2006 21:20 Payers Jayro Wise; billie guarantor
--- OUTSIDE RECORDS SUMMARY | 2018-10-21 08:21 | XMS RPT_ITS ---
:1955 Author Organization OH[facility] Care Team Providers Name Role Phone Talya DO, Amy Attending Unavailable Talya DO, Amy Referring Unavailable Talya DO, Amy Consulting Unavailable WIETECHA, LAUREN Attending Unavailable WIETECHA, LAUREN Referring Unavailable Talya, Amy Primary Care Unavailable WIETECHA, LAUREN Attending Unavailable WIETECHA, LAUREN Referring Unavailable Talya, Amy Primary Care Unavailable WIETECHA, LAUREN Attending Unavailable WIETECHA, LAUREN Referring Unavailable Talya, Amy Primary Care Unavailable WIETECHA, LAUREN Attending Unavailable WIETECHA, LAUREN Referring Unavailable Talya, Amy Primary Care Unavailable WIETECHA, LAUREN Attending Unavailable WIETECHA, LAUREN Referring Unavailable Talya, Amy Primary Care Unavailable Talya, Amy Attending Unavailable Talya, Amy Referring Unavailable Talya, Amy Primary Care Unavailable WIETECHA, LAUREN Attending Unavailable WIETECHA, LAUREN Referring Unavailable Talya, Amy Primary Care Unavailable MITCHEL TRAN Attending Unavailable MITCHEL TRAN Referring Unavailable Talya, Amy Primary Care Unavailable WIETECHA, LAUREN Attending Unavailable Talya, Amy Primary Care Unavailable WIETECHA, LAUREN Referring Unavailable PROBLEMS PROBLEMS DATE TYPE CONDITION / CODE ATTENDING STATUS SOURCE 07/29/2018 Unknown L50.9 - Urticaria, WIETECHA, Active [place] unspecified / [facility] L50.9(ICD-10) Hospital Repository 07/29/2018 Unknown L50.0 - Allergic WIETECHA, Active [place] urticaria / [facility] L50.0(ICD-10) Hospital Repository 08/18/2018 Unknown E21.1 - Secondary WIETECHA, Active [place] hyperparathyroidism, [facility] not elsewhere Hospital classified / Repository E21.1(ICD-10) 07/09/2018 Unknown M81.0 - Age-related WIETECHA, Active [place] osteoporosis without [facility] current pathological Hospital fracture / Repository M81.0(ICD-10) 07/09/2018 Unknown E83.42 - Hypomagnesemia WIETECHA, Active [place] / E83.42(ICD-10) [facility] Repository 01/28/2018 Unknown E22.1 - MITCHEL TRAN Active [place] Hyperprolactinemia / [facility] E22.1(ICD-10) Hospital Repository 11/17/2017 Unknown E55.9 - Vitamin D WIETECHA, Active [place] deficiency, unspecified [facility] / E55.9(ICD-10) Hospital Repository 11/17/2017 Unknown E21.5 - Disorder of WIETECHA, Active [place] parathyroid gland, [facility] unspecified / Hospital E21.5(ICD-10) Repository PROCEDURES PROCEDURES No Procedure Records FoundRESULTS RESULTS SCREEN MAMM (CAD) Observed: 08/17/2018 Status: F Source: [place] W/BEBO BILAT 10:56 AM [facility] REPOSITORY [facility] Imaging Services [address] [place] [address] SCREEN MAMM (CAD) W/BEBO BILAT MR#: [id number] Acct: [id number] Name: ROSALIE WISE Rep #: [id number] : 1955 F 63 From: Dimitri Frye MD PCP: Amy Pickard DO Status: REG CLI Study: SCREEN MAMM (CAD) W/BEBO BILAT Date of Exam: 08/17/18 Exam# [id number] Ordering Dr: Amy Pickard DO MAMMOGRAPHY - BILATERAL SCREENING REASON FOR EXAM: Female, 63 years old. Routine annual screening examination. PERTINENT HISTORY: Aunt with breast cancer. TECHNIQUE: Digital bilateral breast bebo (3D mammographic acquisition) in the CC and MLO projections. 2-D mediolateral oblique (MLO) and craniocaudad (CC) views of both breasts were obtained. CAD: Full Field Digital Mammography with Computer Added Detection was performed. COMPARISON: Comparison is made with prior study dated July 10, 2017 and November 28, 2015. FINDINGS: Breast Composition: The breasts are extremely dense, which lowers the sensitivity of mammography. There are no dominant masses or suspicious calcifications. No other significant abnormalities are identified. There has been no significant change since the prior study. BI/SCREEN MAMM (CAD) W/BEBO BILAT IMPRESSION: Stable bilateral screening mammogram. Yearly follow-up mammogram recommended. (A) ASSESSMENT CATEGORY: BIRADS Category 1: Negative. A letter regarding these results will be sent to the patient by the facility within 30 days. Approximately 10% of breast cancers are not detected by mammography. A normal mammogram should not delay biopsy of a clinically suspicious abnormality. [id number] Electronically Signed: Dimitri Frye MD at 12:26 EST Tel [phone], Service support , CC: mAy Pickard DO Nautical Instrument Mechanic: Signed BASIC METABOLIC Collected: 07/29/2018 Status: F Source: [place] PROFILE (BMP) 9:26 AM [facility] REPOSITORY TYPE CODE TESTS RESULT OUT OF RANGE REFERENCE UNITS LAB L501.0100 74-106 mg/dL Low GLU 65 Result Comment: Please note revised GLUCOSE reference range effective 2017. LAB L501.1000 7-18 mg/dL Normal BUN 8 LAB L501.1100 0.55-1.02 mg/dL Normal CREAT,SERUM 0.64 Result Comment: The validity of the calculated GFR AND GFRAA in patients over 70 years has not been determined. Clinical correlation is essential. LAB L501.1110 >60 mL/min Normal EST GFR 98 Result Comment: Non- GFR Calc LAB L501.1115 >60 mL/min Normal EST GFR - AA 119 Result Comment: GFR Calc LAB L501.1300 10-20 RATIO Normal BUN/CRE 12.4 LAB L501.2200 8.5-10.1 mg/dL CA Normal 8.5 LAB L501.5300 136-145 mmol/L NA Normal 139 LAB L501.5600 3.5-5.1 mmol/L K Normal 4.1 LAB L501.5900 98-107 mmol/L CL Normal 106 LAB L501.6100 21.0-32.0 mmol/L Normal CO2 26.0 LAB L501.6200 5-15 Normal GAP 7 Performed By: #### L500.2500 #### [facility] [address] [place], [address] PTHIN Collected: 07/29/2018 Status: F Source: [place] 9:26 AM [facility] REPOSITORY TYPE CODE TESTS RESULT OUT OF RANGE REFERENCE UNITS LAB L509.1000 18.4-80.1 pg/mL Normal PTHIN 78.1 Performed By: #### L509.1000 #### [facility] [address] [place], [address] LIPID PROFILE Collected: 07/18/2018 Status: F Source: [place] 7:10 AM [facility] REPOSITORY Order Comment: TALYA GETS LIPID;WIET GETS PTH VITD TYPE CODE TESTS RESULT OUT OF RANGE REFERENCE UNITS LAB L501.4900 200 mg/dL Normal CHOL 192 Result Comment: <200 mg/dL Desirable 200-240 mg/dL Borderline >240 mg/dL High Risk LAB L501.5000 mg/dL Normal TRIG 129 Result Comment: The drugs N-Acetylcysteine and Metamizole may falsely depress this assay. Serum Triglycerides Reference Interval Normal <150 mg/dL Borderline high 150 - 199 mg/dL High 200 - 499 mg/dL Very High > or = 500 mg/dL LAB L501.6400 mg/dL Normal HDL 42 Result Comment: The drugs N-Acetylcysteine and Metamizole may falsely depress this assay. Reference Range HDL <40 mg/dL Low HDL Cholesterol HDL >or= 60 mg/dL High HDL Cholesterol LAB L501.6500 0-130 mg/dL Normal LDL 124 LAB L501.6600 5-40 mg/dL Normal VLDL 26 Performed By: #### L500.4100 #### [facility] [address] [place], [address] PTHIN Collected: 07/18/2018 Status: F Source: [place] 7:10 AM [facility] REPOSITORY Order Comment: TALYA GETS LIPID;WIET GETS PTH VITD TYPE CODE TESTS RESULT OUT OF RANGE REFERENCE UNITS LAB L509.1000 18.4-80.1 pg/mL High PTHIN 163.5 Performed By: #### L509.1000 #### [facility] [address] [place], [address] VITAMIN D,25 HYDROXY Collected: 07/18/2018 Status: F Source: [place] 7:10 AM [facility] REPOSITORY Order Comment: TALYA GETS LIPID;JAVI GETS PTH VITD TYPE CODE TESTS RESULT OUT OF RANGE REFERENCE UNITS LAB L506.1000 29.95-100.01 ng/mL Normal Vitamin D 76.8 25-OH Result Comment: Vitamin D 25(OH) Status Range Deficiency <20 ng/mL (50nmol/L) Insuffciency 20 - 30 ng/mL (50 - 75 nmol/L) Sufficiency 30 - 100 ng/mL (75 - 250 nmol/L) Toxicity >100 ng/mL (>250 nmol/L) Performed By: #### L506.1000 #### [facility] [address] [place], [address] COMPREHENSIVE METABOLIC Collected: 07/09/2018 Status: F Source: [place] [facility] 9:37 AM [facility] REPOSITORY TYPE CODE TESTS RESULT OUT OF RANGE REFERENCE UNITS LAB L501.0100 74-106 mg/dL Normal GLU 75 Result Comment: Please note revised GLUCOSE reference range effective 2017. LAB L501.1000 7-18 mg/dL Normal BUN 12 LAB L501.1100 0.55-1.02 mg/dL Normal CREAT,SERUM 0.72 Result Comment: The validity of the calculated GFR AND GFRAA in patients over 70 years has not been determined. Clinical correlation is essential. LAB L501.1110 >60 mL/min Normal EST GFR 87 Result Comment: Non- GFR Calc LAB L501.1115 >60 mL/min Normal EST GFR - AA 105 Result Comment: GFR Calc LAB L501.1300 10-20 RATIO Normal BUN/CRE 16.7 LAB L501.1500 6.4-8.2 g/dL T Normal PROT 7.3 LAB L501.1800 3.2-5.0 g/dL Normal ALB 3.2 LAB L501.1950 2.2-4.2 g/dL Normal GLOB 4.1 LAB L501.2000 0.9-2.4 RATIO Low A/G 0.8 LAB L501.2200 8.5-10.1 mg/dL CA Normal 8.6 LAB L501.4100 15-37 U/L High AST 39 LAB L501.4305 45-117 U/L Normal ALK P 61 LAB L501.4405 13-56 U/L Normal ALT 32 LAB L501.4600 0.20-1.00 mg/dL T Normal BILI 0.20 LAB L501.5300 136-145 mmol/L NA Normal 141 LAB L501.5600 3.5-5.1 mmol/L K Normal 4.3 LAB L501.5900 98-107 mmol/L CL Normal 107 LAB L501.6100 21.0-32.0 mmol/L Normal CO2 28.0 LAB L501.6200 5-15 Normal GAP 6 Performed By: #### L500.4050, L501.5200 #### [facility] [address] [place], [address] MAGNESIUM Collected: 07/09/2018 Status: F Source: [place] 9:37 AM [facility] REPOSITORY TYPE CODE TESTS RESULT OUT OF RANGE REFERENCE UNITS LAB L501.5200 1.6-2.6 mg/dL Normal MG 2.2 Performed By: #### L500.4050, L501.5200 #### [facility] [address] [place], [address] DOWNTIME REPORT Observed: 01/22/2018 Status: F Source: [place] 12:41 PM [facility] Medical Records Department [address] [place] [address] Downtime Report MR#: [id number] Acct: [id number] Name: ROSALIE WISE Rep #: [id number] : 1955 62 From: Aron Hernandez PCP: Amy Pickard DO Status: REG CLI This patient was seen during an EMR downtime January 05, 2018 - January 12, 2018. This patient may have a combination of paper and electronic documentation or all paper documentation. All documentation is viewable within the e-chart portion of [employer] for each patient visit. PTHIN Collected: 01/07/2018 Status: F Source: [place] [facility] TYPE CODE TESTS RESULT OUT OF RANGE REFERENCE UNITS LAB L509.1000 18.4-80.1 pg/mL Normal PTHIN 76.2 Performed By: #### L509.1000 #### [facility] [address] [place], [place], [address] BASIC METABOLIC Collected: 01/07/2018 Status: F Source: [place] PROFILE (BMP) 9:37 AM [facility] REPOSITORY Order Comment: RESULT(S) PREVIOUSLY REPORTED ON MANUAL REQUISITION DURING DOWNTIME. TYPE CODE TESTS RESULT OUT OF RANGE REFERENCE UNITS LAB L501.0100 74-106 mg/dL Normal GLU 80 Result Comment: Please note revised GLUCOSE reference range effective 2017. LAB L501.1000 7-18 mg/dL Normal BUN 12 LAB L501.1100 0.55-1.02 mg/dL Normal CREAT,SERUM 0.72 Result Comment: The validity of the calculated GFR AND GFRAA in patients over 70 years has not been determined. Clinical correlation is essential. LAB L501.1110 >60 mL/min Normal EST GFR 87 LAB L501.1115 >60 mL/min Normal EST GFR - AA 105 LAB L501.1300 10-20 RATIO Normal BUN/CRE 16.7 LAB L501.2200 8.5-10.1 mg/dL Normal CA 8.6 LAB L501.5300 136-145 mmol/L Normal NA 142 LAB L501.5600 3.5-5.1 mmol/L Normal K 4.3 LAB L501.5900 98-107 mmol/L High CL 109 LAB L501.6100 21.0-32.0 mmol/L Normal CO2 28.0 LAB L501.6200 5-15 Normal GAP 5 Performed By: #### L500.2500 #### [facility] [address] [place], [place], [address] CALCIUM, URINE 24HR Collected: 11/20/2017 Status: F Source: [place] 5:00 AM [facility] REPOSITORY TYPE CODE TESTS RESULT OUT OF RANGE REFERENCE UNITS LAB L501.2280 1 Normal Calcium UR pH LAB L501.2281 24.0-24.0 HR 24.0 Normal UR Collect Time LAB L501.2288 ml 2850 Normal UR Total Volume LAB L501.2290 Not Estab. < 5.0 Normal Urine Calcium LAB L501.2293 42.0-353.0 mg/24 HR Test Normal 24HR UR not performed Calcium Performed By: #### L500.7000 #### [facility] [address] [place], [address] ELECTROLYTES, 24 HR UR Collected: 11/17/2017 Status: C Source: [place] 9:19 AM [facility] REPOSITORY Order Comment: 24 HR URINE NA ONLY TYPE CODE TESTS RESULT OUT OF RANGE REFERENCE UNITS LAB L501.5290 mL 2750 Normal UR TOTAL VOLUME LAB L501.5500 Not Establ. mmol/L 60 Normal UR NA LAB L501.5525 40-220 mmol/24h 165 Normal UR NA/24HR LAB L501.5800 Not Establ. mmol/L Test Normal UR K not performed Result Comment: AMENDED REPORT 11/17/17953 UR K previously reported as: 28.0 mmol/L LAB L501.5825 25-125 mmol/24h Test Normal not performed UR K/24 HR Result Comment: AMENDED REPORT 11/17/17953 UR K/24 HR previously reported as: 76.0 mmol/24h LAB L501.6000 Not Establ. mmol/L Test Normal not performed UR CL Result Comment: AMENDED REPORT 11/17/17953 UR CL previously reported as: 71 mmol/L LAB L501.6025 110-250 mmol/24h Normal UR Test not CL/24 hr performed Result Comment: AMENDED REPORT 11/17/1755 UR CL/24 hr previously reported as: 195 mmol/24h Performed By: #### L501.5280, L502.0300 #### [facility] [address] [place], [place], [address] CREATININE, URINE Collected: 11/17/2017 Status: F Source: [place] 9:19 AM [facility] REPOSITORY Order Comment: 24 HR URINE NA ONLY TYPE CODE TESTS RESULT OUT OF RANGE REFERENCE UNITS LAB L502.0300 NO RANGE EST. mg/dL Normal URINE 35.70 CREAT Performed By: #### L501.5280, L502.0300 #### [facility] [address] [place], [address] COMPREHENSIVE METABOLIC Collected: 11/17/2017 Status: F Source: [place] RAUSCH 9:19 AM [facility] REPOSITORY Order Comment: NA ONLY TYPE CODE TESTS RESULT OUT OF RANGE REFERENCE UNITS LAB L501.0100 74-106 mg/dL Normal GLU 92 Result Comment: Please note revised GLUCOSE reference range effective 2017. LAB L501.1000 7-18 mg/dL Normal BUN 11 LAB L501.1100 0.55-1.02 mg/dL Normal CREAT,SERUM 0.62 Result Comment: The validity of the calculated GFR AND GFRAA in patients over 70 years has not been determined. Clinical correlation is essential. LAB L501.1110 >60 mL/min Normal EST GFR 102 Result Comment: Non- GFR Calc LAB L501.1115 >60 mL/min Normal EST GFR - AA 124 Result Comment: GFR Calc LAB L501.1300 10-20 RATIO Normal BUN/CRE 17.6 LAB L501.1500 6.4-8.2 g/dL T Normal PROT 7.0 LAB L501.1800 3.2-5.0 g/dL Normal ALB 3.2 LAB L501.1950 2.2-4.2 g/dL Normal GLOB 3.8 LAB L501.2000 0.9-2.4 RATIO Low A/G 0.8 LAB L501.2200 8.5-10.1 mg/dL Low CA 8.3 LAB L501.4100 15-37 U/L Normal AST 32 LAB L501.4305 45-117 U/L Normal ALK P 80 LAB L501.4405 13-56 U/L Normal ALT 27 LAB L501.4600 0.20-1.00 mg/dL Low T BILI 0.10 LAB L501.5300 136-145 mmol/L NA Normal 142 LAB L501.5600 3.5-5.1 mmol/L K Normal 4.2 LAB L501.5900 98-107 mmol/L High CL 108 LAB L501.6100 21.0-32.0 mmol/L Normal CO2 29.0 LAB L501.6200 5-15 Normal GAP 5 Performed By: #### L500.4050, L501.5200 #### [facility] [address] [place], [address] MAGNESIUM Collected: 11/17/2017 Status: F Source: [place] 9:19 AM [facility] REPOSITORY Order Comment: NA ONLY TYPE CODE TESTS RESULT OUT OF RANGE REFERENCE UNITS LAB L501.5200 1.6-2.6 mg/dL Normal MG 2.3 Performed By: #### L500.4050, L501.5200 #### [facility] [address] [place], [address] VITAMIN D,25 HYDROXY Collected: 11/17/2017 Status: F Source: [place] 9:19 AM [facility] REPOSITORY TYPE CODE TESTS RESULT OUT OF RANGE REFERENCE UNITS LAB L506.1000 29.95-100.01 ng/mL Normal Vitamin D 56.0 25-OH Result Comment: Vitamin D 25(OH) Status Range Deficiency <20 ng/mL (50nmol/L) Insuffciency 20 - 30 ng/mL (50 - 75 nmol/L) Sufficiency 30 - 100 ng/mL (75 - 250 nmol/L) Toxicity >100 ng/mL (>250 nmol/L) Performed By: #### L506.1000 #### [facility] [address] [place], [address] PTHIN Collected: 11/17/2017 Status: F Source: [place] 9:19 AM [facility] REPOSITORY TYPE CODE TESTS RESULT OUT OF RANGE REFERENCE UNITS LAB L509.1000 18.4-80.1 pg/mL Normal PTHIN 78.8 Result Comment: Please Note: PTH INTACT METHOD AND REFERENCE RANGE CHANGE Effective 07/23/2017. Performed By: #### L509.1000 #### [facility] [address] [place], [address] COMPREHENSIVE METABOLIC Collected: 10/02/2017 Status: F Source: [place] PROFIL 9:05 AM [facility] REPOSITORY TYPE CODE TESTS RESULT OUT OF RANGE REFERENCE UNITS LAB L501.0100 74-106 mg/dL Normal GLU 80 Result Comment: Please note revised GLUCOSE reference range effective 2017. LAB L501.1000 7-18 mg/dL Normal BUN 10 LAB L501.1100 0.55-1.02 mg/dL Normal CREAT,SERUM 0.60 Result Comment: The validity of the calculated GFR AND GFRAA in patients over 70 years has not been determined. Clinical correlation is essential. LAB L501.1110 >60 mL/min Normal EST GFR 106 Result Comment: Non- GFR Calc LAB L501.1115 >60 mL/min Normal EST GFR - AA 129 Result Comment: GFR Calc LAB L501.1300 10-20 RATIO Normal BUN/CRE 16.6 LAB L501.1500 6.4-8.2 g/dL T Normal PROT 7.4 LAB L501.1800 3.2-5.0 g/dL Normal ALB 3.3 LAB L501.1950 2.2-4.2 g/dL Normal GLOB 4.1 LAB L501.2000 0.9-2.4 RATIO Low A/G 0.8 LAB L501.2200 8.5-10.1 mg/dL Low CA 8.2 LAB L501.4100 15-37 U/L Normal AST 33 LAB L501.4305 45-117 U/L Normal ALK P 91 LAB L501.4405 13-56 U/L Normal ALT 26 Result Comment: Please note revised ALT reference range effective 2017. LAB L501.4600 0.20-1.00 mg/dL Normal T BILI 0.20 LAB L501.5300 136-145 mmol/L Normal NA 143 LAB L501.5600 3.5-5.1 mmol/L Normal K 4.2 LAB L501.5900 98-107 mmol/L High CL 109 LAB L501.6100 21.0-32.0 mmol/L Normal CO2 27.0 LAB L501.6200 5-15 Normal GAP 7 Performed By: #### L500.4050, L501.5200 #### [facility] [address] [place], [place], [address] MAGNESIUM Collected: 10/02/2017 Status: F Source: [place] 9:05 AM [facility] REPOSITORY TYPE CODE TESTS RESULT OUT OF RANGE REFERENCE UNITS LAB L501.5200 1.6-2.6 mg/dL Normal MG 2.5 Result Comment: Please note revised Magnesium reference range effective 2017. Performed By: #### L500.4050, L501.5200 #### [facility] [address] [place], [address] PTHIN Collected: 10/02/2017 Status: F Source: [place] 9:05 AM [facility] REPOSITORY TYPE CODE TESTS RESULT OUT OF RANGE REFERENCE UNITS LAB L509.1000 18.4-80.1 pg/mL High PTHIN 98.4 Result Comment: Please Note: PTH INTACT METHOD AND REFERENCE RANGE CHANGE Effective 07/23/2017. Performed By: #### L509.1000 #### [facility] [address] [place], [address] ALLERGIES ALLERGIES DATE TYPE / CODE NAME / CODE REACTION SEVERITY SOURCE 12/17/2017 Drug No Known Unknown [facility] Allergy/4160 Allergies/F00 Hospital 09368(SNOMED 1801793(RXNOR Repository CT) M) ENCOUNTERS ENCOUNTERS ADMIT/DISCHARGE ACCOUNT ADMITTING ENCOUNTER LOCATION SOURCE NUMBER CLASS 08/17/2018 [id number] Ambulatory [place] 0 [facility] ing:OPBI Repository 07/29/2018 [id number] Ambulatory [place] 6 [facility] ing:LAB Repository 07/18/2018 [id number] Ambulatory [place] 6 [facility] Hospital ing:LAB Repository 07/15/2018 5921 Ambulatory Building:[facility] Practices Repository 07/09/2018 [id number] Ambulatory [place] 0 [facility] Hospital ing:LAB.FUTUR Repository E 01/07/2018 [id number] Amb[place] 1 [facility] Hospital ing:LAB Repository 12/17/2017 [id number] Ambulatory [place] 7 [facility] Hospital ing:MEDOUTP Repository 11/20/2017 [id number] Ambulatory [place] 3 [facility] ing:LABSPEC Repository 11/17/2017 [id number] Ambulatory [place] 8 [facility] ing:LAB Repository 10/02/2017 [id number] Ambulatory [place] 5 [facility] ing:LAB Repository PAYERS PAYERS ENCOUNTER GUARANTOR PAYER SUBSCRIBER SOURCE 08/17/2018 ROSALIE Handley Primary Insurance:UMR WILL VICTORINAB: [place] [id number] [place] [id number] Community BLADE Number: [place], [place] [id number] Repository 82007Ook: (330) Date:6044-70-35NG [phone] () [address] [place] [phone]: 08/17/2018 Secondary NOT GIVENUNK [place] Insurance:SELF PAY [facility]: Effective Repository Date:2018-06-24 07/29/2018 ROSALIE Handley Primary Insurance:R Will VictorinaB: [place] [id number] [place] [id number] Community BLADE Number: [place], [place] [id number] Repository 250[address]Djn: (330) Date:6294-53-76AP [phone] () [address] [place] [phone]: 07/29/2018 Secondary NOT GIVENUNK [place] Insurance:SELF PAY Community [facility] Number: Effective Repository Date:2018-07-29 07/18/2018 ROSALIE Handley Primary Insurance:SANDHYA PRAJAPATIB: [place] [id number] [address] [id number] [id number] Community BLADE Number: [place], [place] [id number] Repository [address]Wry: ([phone]) Date:3362-34-37NL [phone] () [address] [place] [phone]: 07/18/2018 Secondary NOT GIVENUNK [place] Insurance:SELF PAY Community [facility] Number: Effective Repository Date:2018-07-18 07/15/2018 Deirdre Primary Deirdre YOVANNY Cruz: Insurance:UMRPolicesequiel WiseDOB: Repository [id number] Number: [id number] [place] [id number] [place] Date:9637-62-92[place], [place] [address]Aid: 330) Name:FP. [place] [address]Ahq: (HP) [address], [phone] (HP) [place] [address]OA: 07/15/2018 Secondary Will E OHIP Practices Insurance:Raphael SommerDOB: Repository Number: [id number] [address] Date:2006-04-23 - [place], [place] [id number] [address]Ujj: Name:[facility] JETHRO [id number] ~(2 [place], [place] [id number]: 16 HP) 07/15/2018 Tertiary Rosalie Love OHIP Practices Insurance:Health SommerDOB: Repository [facility] [id number] Number: [address] [id number] [place], [place] Date:2008-08-04 [address]Zso: [id number] ~(3 Name:[facility] [address] (HP) NOT USE, [place], [place] [address]QP: 07/15/2018 Tertiary Rosalie Love OHIP Practices Insurance:Medical SommerDOB: Repository [place] Bhaveshesequiel [id number] Number: [address] [id number] [place], [place] Date:2013-08-04 [address]Rdp: [id number] ~(3 Name:[facility] [address] (HP) [address]Hmvhspdtc, [place] [id number]: 07/09/2018 ROSALIE Handley Primary Insurance:UMR Will SommerDOB: [place] [id number] [address] [id number] [id number] Community BLADE Number: [place], [place] [id number] Repository [address]Iip: 330) Date:9383-99-22GR [phone] (HP) [address] [place] [phone]: 07/09/2018 Secondary NOT GIVENUNK [place] Insurance:SELF PAY Community [facility] Number: Effective Repository Date:2018-07-07 01/07/2018 ROSALIE Handley Primary Insurance:UMR Will PrajapatiB: [place] [id number] [address] [id number] Community Blade Number: [place], [place] [id number] Repository [address]Vgn: (330) Date:3519-62-03EU [phone] (HP) [address] [place] [phone]: 01/07/2018 Secondary NOT GIVENUNK [place] Insurance:SELF PAY Community [facility] Number: Effective Repository Date:2018-01-07 12/17/2017 ROSALIE Handley Primary Insurance:UMR Will PrajapatiB: [place] [id number] [address] [id number] [id number] [facility] Blade Number: [place], [place] [id number] Repository [address]Spc: (330) Date:9201-92-82AG [phone] () [address] [place] [phone]: 12/17/2017 Secondary NOT GIVENUNK [place] Insurance:SELF PAY Community [facility] Number: Effective Repository Date:2017-12-10 11/20/2017 ROSALIE Handley Primary Insurance:JOCER Will PrajapatiB: [place] [id number] LENCHO [id number] [facility] Number: [place], [place] [id number] Repository [id number]: [phone]) Date:[id number] [phone] () [address] [place] [id number]: 11/20/2017 Secondary NOT GIVENUNK Jair Insurance:SELF PAY [facility] Number: Effective Repository Date:2017-11-20 11/17/2017 ROSALIE Handley Primary Insurance:UMR Will PrajapatiB: [place] [id number] LENCHO [id number] [facility] Blade Number: [place], [place] [id number] Repository [id number]: (330) Date:2845-02-81BJ [phone] () [address] [place] [id number]: 11/17/2017 Secondary NOT GIVENUNK [place] Insurance:SELF PAY [facility]: Effective Repository Date:2017-11-17 10/02/2017 ROSALIE Handley Primary Insurance:SANDHYA PrajapatiB: Jair [id number] [facility] [id number] [id number] [facility] [place] Number: [place], [place] [id number] Repository [id number]: (330) Date:[id number] [phone] () [address] [place] [id number]: 10/02/2017 Secondary NOT GIVENUNK Jair Insurance:SELF PAY [facility] Number: Effective Repository Date:2017-10-02
--- OUTSIDE RECORDS SUMMARY | 2018-10-21 08:21 | XMS RPT_ITS | Continuity of Care Document ---
:1955 Author Organization [facility] Address [facility]7 [facility] [address] [place] [address] Phone Care Team Providers Name Role Phone Amy Pickard DO Unavailable Dr. Mesfin Newton DO Unavailable Dr. Blas Sheppard MD Unavailable Dr. Kun Simon Unavailable Chanel Bush Unavailable Unavailable Slarb CAD DESIGN ENGINEER, Leigh Unavailable Unavailable Long CAD DESIGN ENGINEER, Genevieve L Unavailable Unavailable MARJORIE Claire Unavailable Unavailable Unavailable Unavailable Problems Name Dates [...] (J02.9, 462) Status: Active Postmenopausal (Z78.0, V49.81) Status: Active Pregnancies () Comments: 5 Status: [...] Quantity: 12 {Tablet} Refills: 0 Ordered:23-May-2014 Meg MCKEONYady Start : 23-May-2014 End : 25-May-2014 Inactive ALIGN, 4MG (Oral Capsule) 1 Capsule daily for 30 days Refills: 0 Ordered:07-Aug-2011 Meg MCKOENYady Start : 22-May-2011 End : 21-Jun-2011 Inactive [...] Quantity: 14 {Capsule} Refills: 0 Ordered:30-Sep-2011 Melly FIERROVictoriakarena FIERRO Amy Start : 30-Sep-2011 End : 07-Oct-2011 [...] Quantity: 30 {Capsule} Refills: 0 Ordered:30-Sep-2011 Chanel Clarie LPN Start : 22-May-2011 End : 30-Sep-2011 [...] Downtime Report Result: Comments: See Note; NOTES: [facility] Medical Records Department [address] [place] [address] Downtime Report MR#: [id number] Acct: [id number] Name: GOKULJAJATEJA Rep #: [id number] : 1955 62 From: Aron Hernandez PCP: Amy Pickard DO Status: REG CLI This patient was seen during an EMR downtime January 05, 2018 - January 12, 2018. This patient may have a combination of paper and electronic documentation or all paper documentation. All documentation is viewable within the e-chart portion of Ifbyphone for each patient visit. 10-Jul-2017 Dexa Bone Density Study (HP) Result: Comments: See Note; NOTES: [facility] Imaging Services [address] [place] [address] Dexa Bone Density Study (HP) MR#: [id number] Acct: [id number] Name: GOKULJAJA Rep #: [id number] : 1955 F 62 From: Dimitri Frye MD PCP: Amy Pickard DO Status: REG CLI Study: Dexa Bone Density Study (HP) Date of Exam: 07/10/17 Exam# [id number] Ordering Dr: Amy Pickard DO STUDY: DUAL [...] Dimitri Frye MD at 13:34 EST Tel [phone], Service support , CC: Amy Pickard DO [employer] Science Teacher: Signed 10-Jul-2017 SCREENING MAMM (CAD), BILAT Result: Comments: See Note; NOTES: [facility] Imaging Services [address] [place] [address] SCREENING MAMM (CAD), BILAT MR#: [id number] Acct: [id number] Name: JAJA WISE Rep #: [id number] : 1955 F 62 From: Dimitri Frye MD PCP: Amy Pickard DO Status: [facility] Study: SCREENING MAMM (CAD), BILAT Date of Exam: 07/10/17 Exam# [id number] Ordering Dr: Amy Pickard MAMMOGRAPHY - BILATERAL [...] delay biopsy of a clinically suspicious abnormality. [id number] Electronically Signed: Dimitri contreras MD at 14:28 EST Tel [phone], Service support , CC: Amy Pickard DO Middle [employer] Science Teacher: Signed 28-Nov-2015 Bilat Scrn Digital AND CAD Result: Comments: See Note; NOTES: [facility] Imaging Services [address] [place] [address] Verdana 4d Bilat Scrn Digital AND CAD MR#: [id number] Acct: [id number] Name: JAJA WISE Rep #: [id number] : 1955 F 60 From: Dimitri Frye MD PCP: Amy Pickard DO Status: REG CLI Study: Bilat Scrn Digital AND CAD Date of Exam: 11/28/15 Exam# [id number] Order ing Dr: Amy Pickard DO MAMMOGRAPHY [...] delay biopsy of a clinically suspicious abnormality. [id number] Electronically Signed: Dimitri Frye MD at 11:18 EDT Tel [phone], Service support [phone], CC: Amy Pickard DO Middle [employer] Science Teacher: Signed 16-Nov-2014 Terell Pimentel Digital AND CAD Result: Comments: See Note; NOTES: [facility] Imaging Services [address] [place] [address] Breast Imaging Report MR#: [id number] Acct: [id number] Name: JAJA WISE Rep #: [id number] : 1955 F 59 From: Dimitri Frye MD PCP: Amy Pickard DO Status: REG CLI Study: Terell Pimentel Digital AND CAD Date of Exam: 11/16/14 Exam# [id number] Ordering Dr: Lauren Pickard DO MAMMOGRAPHY - [...] Dimitri Frye MD at 11:04 EDT Tel [phone], Service support [phone], CC: Amy Pickard DO [employer] Science Teacher: Signed 16-Nov-2014 Dexa Bone Density Study (HP) Result: Comments: See Note; NOTES: [facility] Imaging Services [address] [place] [address] Bone Density Report MR#: [id number] Acct: [id number] Name: JAJA WISE Rep #: [id number] : 1955 F 59 From: Dimitri Frye MD PCP: Amy Pickard DO Status: REG CLI Study: Dexa Bone Density Study (HP) Date of Exam: 11/16/14 Exam# [id number] Ordering Dr: Lauren Pickard DO STUDY: DUAL [...] Dimitri Frye MD at 10:55 EDT Tel [phone], Service support [phone], CC: Amy Pickard DO [employer] Science Teacher: Signed 05-Oct-2014 Chest PA and Lateral Result: Comments: See Note; NOTES: [facility] Imaging Services [address] [place] [address] Radiology Report MR#: [id number] Acct: [id number] Name: JAJA WISE Rep #: [id number] : 1955 F 59 From: Alcides Cota MD PCP: Amy Pickard DO Status: REG REF Study: Chest PA and Lateral Date of Exam: 10/05/14 Exam# [id number] Ordering Dr: Amy Pickard DO STUDY: X-RAY [...] MD at 17:13 EST , Service support [phone], CC: Amy Pickard DO [employer] Science Teacher: Signed 15-Nov-2013 Bilat Scrn Digital & CAD Result: Comments: See Note; NOTES: [facility] Imaging Services [address] [place] [address] Breast Imaging Report MR#: [id number] Acct: [id number] Name: JAJA WISE Rep #: [id number] : 1955 F 58 From: Dimitri Frye MD PCP: Amy Pickard DO Status: REG CLI Exam# [id number] Ordering Dr: Amy Pickard DO MAMMOGRAPHY - [...] at 15:51 EDT Tel , Service support [phone], CC: Amy Pickard DO [employer] Science Teacher: Signed Family History Unknown Family Member Name [...] smoker Vital Signs Date Test Result Details 3-Dan-324758:21 Temperature 97.2 f Pulse 87 /min Comments: [...] cm Results Date Description Value Details :37 Basic Metabolic Profile (BMP) Comments: RESULT(S) PREVIOUSLY REPORTED ON MANUAL REQUISITION DURINGDOWNTIME.[facility] [address] [place], [id number] GAP 5 (Normal) Range: 5-15 CO2 28.0 [...] Comments: Please note revised GLUCOSE reference range bhwnbryvy94/02/2018. :37 PTHIN 76.2 pg/mL (Normal) Comments: [facility] [address] [place], [address] Range: 18.4-80.1 82-Yjw-93360:00 Calcium, Urine 24HR Comments: [facility] [address] [place], [address] 24HR UR Calcium Test not performed {mg/24_HR} (Normal) Range: 42.0-353.0 Urine Calcium < 5.0 (Normal) UR Total Volume 2850 ml (Normal) UR Collect Time 24.0 {HR} (Normal) Range: 24.0-24.0 Calcium UR pH 1 (Normal) 13-Pvf-58179:19 Comprehensive Metabolic Profil Comments: NA [facility] [address] [place], [place], [address] GAP 5 (Normal) Range: 5-15 CO2 29.0 [...] Comments: Please note revised GLUCOSE reference range orbtvhaoe83/02/2018. 46-Fei-24011:19 Creatinine, Urine Comments: 24 HR URINENA [facility] [address] [place], [place], [address] URINE CREAT 35.70 mg/dL (Normal) :19 Electrolytes, 24 HR UR Comments: 24 HR URINENA [facility] [address] [place], [place], [address] UR CL/24 hr Test not performed {mmol/24h} [...] 2750 mL (Normal) :19 Magnesium Comments: NA [facility] [address] [place], [place], [id number] MG 2.3 mg/dL (Normal) Range: 1.6-2.6 :19 PTHIN 78.8 pg/mL (Normal) Comments: [facility] [address] [place], [place], [address] Range: 18.4-80.1 Comments: Please Note: PTH INTACT METHOD AND REFERENCE RANGE CHANGEEffective 07/23/2017. 17-Sma-33202:19 Vitamin D,25 Hydroxy Comments: [facility] [address] [place], [place], [address] Vitamin D 25-OH 56.0 ng/mL (Normal) Range: 29.95-100.01 Comments: Vitamin D 25(OH) Status Range Deficiency <20 ng/mL (50nmol/L) Insuffciency 20 - 30 ng/mL (50 - 75 nmol/L) Sufficiency 30 - 100 ng/mL (75 - 250 nmol/L) Toxicity >100 ng/mL (>250 nmol/L) 02-Oct-20179:05 Comprehensive Metabolic Profil Comments: [facility] [address] [place], [place], [address] GAP 7 (Normal) Range: 5-15 CO2 27.0 mmol/L (Normal) Range: 21.0-32.0 CL 109 mmol/L (Abnormal) Range: 98-107 K 4.2 mmol/L (Normal) Range: 3.5-5.1 NA 143 mmol/L (Normal) Range: 136-145 T BILI 0.20 mg/dL (Normal) Range: 0.20-1.00 ALT 26 U/L (Normal) Range: 13-56 Comments: Please note revised ALT reference range xqxeanxoa80/28/2018. ALK P 91 U/L (Normal) Range: 45-117 [...] Comments: Please note revised GLUCOSE reference range kmbdainjb22/02/2018. 02-Oct-20179:05 Magnesium Comments: [facility] [address] [place], [place], [address] MG 2.5 mg/dL (Normal) Range: 1.6-2.6 Comments: Please note revised Magnesium reference range yvyeepbpe85/15/2018. 02-Oct-20179:05 PTHIN 98.4 pg/mL (Abnormal) Comments: [facility] [address] [place], [address] Range: 18.4-80.1 Comments: Please Note: PTH INTACT METHOD AND REFERENCE RANGE CHANGEEffective 07/23/2017. 32-Rlj-652030:07 [facility] ([address]) Comments: PATIENT NOT FASTINGPERFORMED BY: [employer]70 [facility] [id number] BY: [employer] [id number] Please note: SPRCS (Normal) Comments: Protein electrophoresis scan will follow via computer, mail, orcourier delivery. A/G Ratio 1.3 (Normal) Range: 0.7-1.7 Globulin, Total 3.0 g/dL (Normal) Range: 2.2-3.9 M-Supa Not Observed g/dL (Normal) Gamma Globulin 1.0 g/dL (Normal) Range: 0.4-1.8 Beta Globulin 1.0 g/dL (Normal) Range: 0.7-1.3 Obthg-0-Salqstuh 0.7 g/dL (Normal) Range: 0.4-1.0 Sjiyj-0-Kgcnqkwn 0.3 g/dL (Normal) Range: 0.0-0.4 Albumin 3.9 g/dL (Normal) Range: 2.9-4.4 Protein, Total, Serum 6.9 g/dL (Normal) Range: 6.0-8.5 34-Ncw-240202:07 [facility] ([address]) Comments: PATIENT NOT FASTINGPERFORMED BY: ithinksport6370 [facility] [id number] BY: [employer] [address] [id number] Please note: SPRCS (Normal) Comments: Protein electrophoresis scan will follow via computer, mail, orcourier delivery. M-Supa, % Not Observed % (Normal) Gamma Globulin, U 35.3 % (Normal) Beta Globulin, U 25.7 % (Normal) Ighkz-0-Qjppokfr, U 24.2 % (Normal) Hbmmg-6-Raapquar, U 5.0 % (Normal) Albumin, U 9.8 % (Normal) Protein,Total,Urine <4.0 mg/dL (Normal) Comments: Verified by repeat analysis 21-Dzg-435645:07 Vitamin D Hydroxy Comments: PATIENT NOT FASTINGPERFORMED BY: [employer] Csxvui0183 [facility] [id number] BY: [employer] [id number] ([address]) Vitamin D, 25-Hydroxy 45.2 ng/mL (Normal) Range: 30.0-100.0 Comments: Vitamin D deficiency has been defined by the [place] ofMedicine and an Endocrine Society practice guideline as alevel of serum 25-OH vitamin D less than 20 ng/mL (1,2).The Endocrine Society went on to further define vitamin Dinsufficiency as a level between 21 and 29 ng/mL (2).1. IOM ([place] of Medicine). 2010. Dietary reference intakes for calcium and D. Ndiaye [place]: The National Academies Press.2. Lucy MF, Dory NC, Marcella-John ANDRES, et al. Evaluation, treatment, and prevention of vitamin D deficiency: an Endocrine Society clinical practice guideline. JCEM. 2010; 96(7):1911-30. 77-Ooe-822278:07 VITAMIN D, 1, 25-DIHYDROXY Comments: PATIENT NOT FASTINGPERFORMED BY: ithinksport6370 [facility] [id number] BY: OpDemandW[place] [address] [facility] [id number] (93977) Calcitriol(1,25 di-OH Vit D) 120.0 pg/mL (Abnormal) Range: 19.9-79.3 :15 URINE CALCIUM ROSALIA TIMED Comments: PATIENT NOT FASTINGPERFORMED BY: [employer] Fjkipl7230 [facility] [id number] Information: START 07/20/17@710AM 24 Hour (42691) Calcium, Urine 24hr <16.0 {mg/24_hr} (Abnormal) Range: 100.0-300.0 Calcium, Urine <0.8 mg/dL (Normal) 74-Oha-478224:07 TSH (48918) Comments: PATIENT NOT FASTINGPERFORMED BY: [employer] Qkwumo8348 [facility] [place] [id number] BY: [address] [id number] TSH 2.930 {uIU/mL} (Normal) Range: 0.450-4.500 26-Ijq-600166:07 SED RATE ERYTHROCYTE Comments: PATIENT NOT FASTINGPERFORMED BY: LabHelpingDocGallup Indian Medical CenterQokquz2128 [facility] [id number] BY: [address] [id number] (84448) Sedimentation Rate-Westergren 9 mm/h (Normal) Range: 0-40 37-Jqk-434339:07 PHOSPHORUS (05596) Comments: PATIENT NOT FASTINGPERFORMED BY: LabHelpingDocEast Orange VA Medical CenterRvpbfk2142 [facility] [id number] BY: [address] [id number] Phosphorus, Serum 3.9 mg/dL (Normal) Range: 2.5-4.5 57-Jla-690381:07 PARATHORMONE (35963) Comments: PATIENT NOT FASTINGPERFORMED BY: OpDemandGallup Indian Medical CenterNaoiju8525 [facility] [id number] BY: [address] [id number] PTH, Intact 34 pg/mL (Normal) Range: 15-65 84-Tni-561693:07 HEPATIC FUNCTION PANEL Comments: PATIENT NOT FASTINGPERFORMED BY: LabHelpingDoc Qydmsh8503 [facility] [id number] BY: [address] [id number] ([address]) ALT (SGPT) 18 [iU]/L (Normal) Range: 0-32 AST (SGOT) 30 [iU]/L (Normal) Range: 0-40 Alkaline Phosphatase, S 82 [iU]/L (Normal) Range: 39-117 Bilirubin, Direct 0.06 mg/dL (Normal) Range: 0.00-0.40 Bilirubin, Total <0.2 mg/dL (Normal) Range: 0.0-1.2 Albumin, Serum 4.3 g/dL (Normal) Range: 3.6-4.8 :07 CBC (AUTO) (82111) Comments: PATIENT NOT FASTINGPERFORMED BY: Ology MediaEast Orange VA Medical CenterNaoklt7378 [facility] [id number] BY: [address] [id number] Platelets 515 {x10E3/uL} (Abnormal) Range: 150-379 RDW 14.7 % (Normal) Range: 12.3-15.4 MCHC 32.6 g/dL (Normal) Range: 31.5-35.7 MCH 27.6 pg (Normal) Range: 26.6-33.0 MCV 85 fL (Normal) Range: 79-97 Hematocrit 37.7 % (Normal) Range: 34.0-46.6 Hemoglobin 12.3 g/dL (Normal) Range: 11.1-15.9 RBC 4.46 {x10E6/uL} (Normal) Range: 3.77-5.28 WBC 8.0 {x10E3/uL} (Normal) Range: 3.4-10.8 :07 CALCIUM SERUM (41811) Comments: PATIENT NOT FASTINGPERFORMED BY: OpDemandWilliam Ville 2756770 [facility] [id number] BY: [employer] [id number] Calcium, Serum 9.3 mg/dL (Normal) Range: 8.7-10.3 93-Dde-071473:07 C-REACTIVE PROTEIN Comments: PATIENT NOT FASTINGPERFORMED BY: [employer] [id number] BY: [address] [id number] ([address]) C-Reactive Protein, Quant 2.0 mg/L (Normal) Range: 0.0-4.9 :19 METABOLIC PANEL, Comments: PATIENT WAS FASTINGPERFORMED BY: Venture Market IntelligenceCo Alihkz3368 [facility] [id number] Information: [id number] COMPREHENSIVE (41746) ALT (SGPT) 20 [iU]/L (Normal) Range: 0-32 [...] 86 mg/dL (Normal) Range: 65-99 :19 CALCIFIDIOL (24142) VIT D 25 Comments: PATIENT WAS FASTINGPERFORMED BY: LabCoEast Orange VA Medical CenterDnkkpn2715 [facility] [id number] Vitamin D, 25-Hydroxy 61.1 ng/mL (Normal) Range: 30.0-100.0 Comments: Vitamin D deficiency has been defined by the [place] ofMedicine and an Endocrine Society practice guideline as alevel of serum 25-OH vitamin D less than 20 ng/mL (1,2).The Endocrine Society went on to further define vitamin Dinsufficiency as a level between 21 and 29 ng/mL (2).1. IOM ([place] of Medicine). 2010. Dietary reference intakes for calcium and D. [place]: The National Academies Press.2. Lucy MF, Dory DUMONT, Elaina ANDRES, et al. Evaluation, treatment, and prevention of vitamin D deficiency: an Endocrine Society clinical practice guideline. JCEM. 2010; 96(7):1911-30. :19 TSH (76602) Comments: PATIENT WAS FASTINGPERFORMED BY: [employer] [facility] Kbbcgb3993 [address] RoadDublin [place] [id number] TSH 2.950 {uIU/mL} (Normal) Range: 0.450-4.500 :19 CBC (AUTO) (65811) Comments: PATIENT WAS FASTINGPERFORMED BY: [employer] [facility] Pwvsnb8617 [address]ley RoadDublin [place] [id number] Platelets 533 {x10E3/uL} (Abnormal) Range: 150-379 RDW 16.1 % (Abnormal) Range: 12.3-15.4 MCHC 31.7 g/dL (Normal) Range: 31.5-35.7 MCH 25.2 pg (Abnormal) Range: 26.6-33.0 MCV 79 fL (Normal) Range: 79-97 Hematocrit 32.8 % (Abnormal) Range: 34.0-46.6 Hemoglobin 10.4 g/dL (Abnormal) Range: 11.1-15.9 RBC 4.13 {x10E6/uL} (Normal) Range: 3.77-5.28 WBC 6.6 {x10E3/uL} (Normal) Range: 3.4-10.8 :19 VITAMIN B-12 (CYANOCOBALAMIN) Comments: PATIENT WAS FASTINGPERFORMED BY: [employer] [facility] Shzbed3050 [address]ley Road[address]ublin [place] [id number] (83640) Vitamin B12 1184 pg/mL (Abnormal) Range: 211-946 :19 LIPID PANEL (07542) Comments: PATIENT WAS FASTINGPERFORMED BY: [facility] Enback0622 [facility] [id number] LDL/HDL Ratio 2.4 {ratio_units} (Normal) Range: 0.0-3.2 [...] Cholesterol, Total 160 mg/dL (Normal) Range: 100-199 27-Trd-050956:15 HPV automatic Comments: Source.............Cervical;EndocervicalNo. of containers..01 CYTYC Thin Prep VialPATIENT NOT FASTINGPERFORMED BY: WB [facility] Yjkypwpjwc974 [facility] W [id number] BY: Pete Love (83691) [facility] Ctlgsyxutn855 [facility] [place] [id number] Information: [id number] HPV, high-risk Negative Comments: This high-risk HPV [...] may not bedistinguished in cases of atrophy.Z 11.RadhamesJina Pat, Bean Viner (ASCP) :15 CBC, Employee Comments: Test performed at:[facility] Svijhiwqae1177 [place] [address] Absolute Lymph 2.70 {X10_3/ul} (Normal) Range: 0.83-4.51 [...] 4.2-5.4 WBC 7.4 K/mm3 (Normal) Range: 4.4-11.0 :15 Employee Profile Comments: Test performed at:[facility] Iphvfahidi6097 [place] [address] LDH 179 U/L (Normal) Range: 87-241 VLDL [...] 7-18 GLU 88 mg/dL (Normal) Range: 70-110 05-Zea-55955:15 Urinalysis, Employee Comments: Test performed at:[facility] [address] [place] [address] LEUK ESTERASE Negative /ul (Normal) OCCULT BLOOD-UR Negative /ul (Normal) NITRITE UR Negative (Normal) UROBILI Normal mg/dL (Normal) PROT DIPSTX Negative mg/dL (Normal) pH UR 6.5 (Normal) Range: 5.0 - 8.0 SP.GR. DIPSTX 1.010 (Normal) Range: 1.002-1.030 KETONE UR Negative mg/dL (Normal) BILIRUBIN URINE Negative mg/dL (Normal) GLUCOSE, UR Normal mg/dL (Normal) CLARITY Clear (Normal) COLOR Yellow (Normal) 66-Kem-626842:42 JUAN MANUEL CULTURE-OTHER (23036) Comments: PATIENT NOT FASTINGPERFORMED BY: LabCoEast Orange VA Medical CenterJglens1662 [facility] [id number] Information: SRC:TONE [id number] Result 1 RRF (Normal) Comments: Routine respiratory álvaro Upper Respiratory Culture Final report (Normal) 48-Olw-399165:26 Rapid Strep Test, Office (79824) Rapid Strep Test, Office Negative (Normal) 44-Ect-56347:29 CBCEM Comments: This patient requested that [facility] Laboratoy send to you acopy of [...] 4.2-5.4 WBC 7.3 K/mm3 (Normal) Range: 4.4-11.0 50-Dzx-77868:29 EMP Comments: This patient requested that [facility] Laboratoy send to you acopy of [...] CHOL 127 mg/dL (Normal) Comments: <200 mg/dL Fhkgscsxh679-847 mg/dL Borderline>240 mg/dL High Risk BID 0.06 [...] 7-18 GLU 82 mg/dL (Normal) Range: 70-110 13-Swd-60757:29 UAEM Comments: This patient requested that [facility] Laboratoy send to you acopy of [...] (Normal) UCLAR Clear (Normal) UCOL Yellow (Normal) 21-Ntr-77308:59 BREAST UNILATERAL Radiology Report See Note (Normal) [...] Frye M.D.December 11, 2012 at 10:40:58 AM [id number] Signed GP/GP If you are the referring physician and would like to consult with theradiologist who pr ovided this interpretation, please contact Asha Yap at [phone]. If this radiologist is unavailable, youwill be directed to another radiologist to assist. If you are a patient with a question regarding this report, pleasecontactyour referring physician directly. Professional Interpretation Provided By: [employer], Phone , These documents contain legall y [...] the return or destructionofthese documents. Dictated on 12/11/12 0905 by Nisreen Frye MDranscribed on 12/11/12 1046 by ITS IMPORTSign by Dimitri Frye MD on 12/11/12 1047 Sign by: Dimitri Frye MD 36-Xpk-18232:00 Thin prep Pap Comments: Source.............Cervical;EndocervicalNo. of containers..01 CYTYC Thin Prep VialPERFORMED BY: LabCo[address] [id number] Information: CO- [id number] (04292) Note: PAPSMR (Normal) Comments: The Pap smear [...] are present.V72.31 ; Routine gynecological examinationKai Lees Bean Viner ([facility]) 42-Nzc-126610:36 BILAT SCRN DIGITAL & CAD Radiology Report [...] will be [facility] the patient [facility]in [facility]. Approximately 10% of breast cancers are not detected by mammography. Anormal mammogram should not delay biopsy of a clinical ly suspiciousabnormality. Signed:Dimitri Frye M.D.November 24, 2012 at 4:06:24 PM [id number] Signed GP/GP If you are the referring physician and would like to consult with nevaeh russell who provided this interpretation, please contact Asha Yap at [phone]. If this radiologist is unavailable, youwill be directed to another radiologist to assist. If you are a p atient with a question regarding this report, pleasecontactyour referring physician directly. Professional Interpretation Provided By: [employer], Phone , These documents contain legally protected [...] 11/24/12 1609 Sign by: Dimitri Frye MD 47-Dtv-696708:37 Thin prep Pap Comments: Source.............Cervical;EndocervicalNo. of containers..01 CYTYC Thin Prep VialPERFORMED BY: Lab[address] [id number] Information: [id number] (06421) Note: PAPSMR (Normal) Comments: The Pap smear [...] atrophy.V 72.31 ; Routine gynecological examinationKaitlyn Henriquez Bean Viner (ASCP) :16 CBCEM Comments: This patient requested that [facility] [email or web address] send to you acopy of their Yearly [...] :16 EMP Comments: This patient requested that [facility] [email or web address] send to you acopy of their Yearly [...] 7-18 GLU 91 mg/dL (Normal) Range: 70-110 62-Lrc-32998:16 UAEM Comments: This patient requested that [facility] Laboratoy send to you acopy of [...] (Normal) UCLAR CLEAR (Normal) UCOL YELLOW (Normal) 08-Dbz-11147:00 CULTURE, WOUND Comments: CHIN LESION WOUND CULTURE See Note (Normal) Comments: THERE ARE NO CLSI STANDARDS FOR INTERPRETATION OFTHIS DRUG-ORGANISM COMBINATION. AMOUNT GROWTH RARE ORGANISM 1: ROTHIA MUCILAGINOSA GRAM STAIN See Note (Normal) Comments: GRAM STAIN NO ORGANISMS SEEN 47-Ovz-328756:36 BILAT SCRN DIGITAL & CAD Radiology Report [...] radiologist regarding this report, please call our 87E8klhfcda line @ Dictated on 09/17/11 1606 by Carina Frye MD ribed on 09/18/11 0749 by ITS IMPORTSign by Dimitri Frye MD on 09/18/11 0750 Sign by: Dimitri Frye MD 84-Esq-284842:36 DEXA BONE DENSITY STUDY (HP) Radiology Report [...] gist regarding this report, please call our 61N9nbogxrc line @ Dictated on 09/17/11 1537 by Uday LLANOS,Nisreenranscribed on 09/18/11 1021 by ITS IMPORTSign by Dimitri Frye MD on 09/18/11 1022 Sign by: Uday LLANOSDimitri 68-Lyz-322845:59 WC EMP CHEST PA XRAY Radiology Report See Note [...] radiologist regarding this report, please call our 60V3rkmbqwl line @ Dictated on 08/28/11 1106 by CARMINA SALCEDO MD BTranscribed o n 08/28/11 1510 by ITS IMPORTSign by CARMINA SALCEDO MD on 08/28/11 1511 Sign by: CARMINA SALCEDO MD 05-Boz-824978:05 JUAN MANUEL CULTURE-OTHER (45345) Comments: PATIENT NOT FASTINGPERFORMED BY: [facility]Core[facility]6370 [facility] [id number] Information: SRC:THRT [id number] Result 1 RRF (Normal) Comments: Routine respiratory ávlaro Upper Respiratory Culture Final report (Normal) 43-Hci-955235:00 BILAT SCRN DIGITAL & CAD Radiology Report [...] on 08/16/10 1240 Sign by: Dimitri Frye 57-Wrp-92091:59 DEXA BONE DENSITY STUDY (HP) Radiology Report See Note (Normal) Comments: CLINICAL:This is a 55-year-old female patient with post menopausal state. EXAMINATION:DUAL ENERGY X-RAY ABSORPTIOMETRY / DEXA. TECHNIQUE:Bone Density Measurements (BMD) of lumbar spine and bilateral hip s wereobtained using a Unii scanner.. COMPARISON:Comparison is made with prior study [...] h [email or web address] Dictated on 08/16/10 1006 by Nisreen Fryeranscribed on 08/16/10 1446 by ITS IMPORTSign by Dimitri Frye on 08/16/10 1447 Sign by: Dimitri Frye 46-Wut-812048:23 Thin prep Pap Comments: Source.............Cervical;EndocervicalNo. of containers..01 CYTYC Thin Prep VialPERFORMED BY: Lab[address] [id number] Information: [id number] ([id number]) Note: PAPSMR (Normal) Comments: The Pap smear [...] are present.V72.31 ; Routine gynecolog ical examina tionSunny Liza Louie, Bean Viner (ASC) :28 CHEST, PA AND LATERAL Radiology Report See Note (Normal) Comments: Exam Number: [id number] CLINICAL:54-year-old female with 3 month follow-up for [...] Range: 0.358-3.74 0 (Normal) :2 VIT D,25 86866 37.9 ng/mL (Normal) Range: 32.0-100.0 0 Comments: Recent studies consider the lower limit of 32.0 ng/mL to nikko threshold for optimal health.Tereso ANTON. J Nutr. 2004;135(2):317-22.Performed at: [address] [id number] Director: Ilene Nguyen MD :2 VITAMIN B12 [...] 4.2-5.4 WBC 7.6 K/mm3 (Normal) Range: 4.4-11.0 63-Ekq-012681:13 CHEST, PA AND LATERAL Radiology Report See Note (Normal) Comments: Exam Number: [id number] TWO VIEWS OF THE CHEST HISTORYPositive PPD. [...] monthsis recommended. Reported By: SEAN FISHER M.D. 21-Zbn-002569:06 DEXA BONE DENSITY STUDY () Radiology Report See Note (Normal) Comments: Exam Number: [id number] BONE DENSITOMETRY HISTORY: Screening osteoporosis TECHNIQUE Bone densitometry of the lumbar spine and both hips is now beingperformed. The best criteria for evaluation of ost eoporosis is theT-value, which represents the comparison of the patient's bone mass kat expected peak bone mass. For most patients, the mean T-value of H3zfboebt L4 is used to evaluate the lumbar [...] density is measured at 8.9% greater than vm8036.The T-value of the right femor al neck is -1.7, which is in the rangeof osteopenia.The T-value of the total right hip is -1.6, which is in the range ofosteopenia. IMPRESSIONThere is osteopenia of the lumbar spine and both hips. Reported By: SEAN FISHER M.D. 18-Zcs-231530:05 [facility] CAD Radiology Report See Note (Normal) Comments: Exam Number: [id number] MAMMOGRAM, BILATERAL SCREENING DIGITAL AND CAD HISTORYRoutine [...] mammograms werealso examined with computer-aided detection software ([employer] Reported By: SEAN FISHER M.D. 21-Qvw-174012:10 Thin prep Pap Comments: Source.............Cervical;EndocervicalLMP / Prev Treat...GPH=[id number]. of containers..01 CYTYC Thin Prep VialPATIENT NOT FASTINGClinical Information: ADD [id number] ([id number]) PERFORMED BY: [facility] [place] [id number] . . (Normal) DIAGNOSIS: SPRCS (Normal) Comments: NEGATIVE FOR INTRAEPITHELIAL LESION AND MALIGNANCY.Satisfactory for evaluation. Endocervical and/or squamous metaplasticcells (endocervical component) are present.V72.31 ; Routine gynecolog ical examina Sharon Hernandez, Bean Viner (ASCP) Note: PAPSMR (Normal) Comments: The Pap [...] for patient's is the eGFRmultiplied by 1.212. [facility] Laboratory uses the abbreviated Modification of [...] Disease W/O Kidney Disease>/= 90 Stage One Sypmqw21 - 89 Stage Two Suspect Decreased GFR30 [...] 2.6-6.0 VLDL 15 mg/dL (Normal) Range: 5-40 70-Bwl-02280:48 EMP URINALYSIS LEUK ESTERASE TRACE (Abnormal) OCCULT [...] 0.2 EU/dl (Normal) Range: 0.2 - 1.0 09-Mar-20088:05 BILAT DIAG DIGITAL & CAD Radiology Report See Note (Normal) Comments: Exam Number: [id number] MAMMOGRAM, BILATERAL DIAGNOSTIC DIGITAL AND CAD HISTORYBilateral [...] mammograms werealso examined with computer-aided detection software ([facility], [employer] Reported By: SEAN FISHER M.D. :25 CBC, [...] 2.6-6.0 VLDL 22 mg/dL (Normal) Range: 5-40 75-Agy-70019:25 EMP URINALYSIS BILIRUBIN URINE SeeNote (Normal) Comments: [...] 0.2 EU/dl (Normal) Range: 0.2 - 1.0 64-Kjf-863988:32 UNILAT RT DIAG DIGITAL & CAD Radiology Report See Note (Normal) Comments: Exam Number: [id number] DIAGNOSTIC RIGHT MAMMOGRAM REASON FOR EXAMAbnormal screening mammogram. 2 lateral views obtained of the right breast as well as spotcompression in the MLO and CC proje ctions. Th e lobulated density compresses out. There is dense nodulararchitecture similar to multiple previous studies dating back [id number]. There is no discrete definable mass, malignant [...] to multiple previous studies dating back to 2004. There areno malignant-type micr ocalcifications. There is no architecturaldistortion. IMPRESSIONDense, somewhat nodular stromal tissue bilateral breasts. No discretemass, malignant-type microcalcifications or architecturialdistorti on in either breast. As a further precaution, recommend shortinterval bilateral mammographic followup at 6 months. BIRADS 3. Reported By: MEDARDO RODRIGUEZ M.D. :08 BILAT SCRN DIGITAL & CAD Radiology Report See Note (Normal) Comments: Exam Number: [id number] MAMMOGRAM, BILATERAL SCREENING DIGITAL AND CAD HISTORYRoutine screening. Full field digital images were obtained in mediolateral oblique andcraniocaudal projections. CAD images w ere reviewed. The current study is compared to the examinations of June 2004 andMarch 2006. There is a severe extent of fibroglandular [...] mammograms werealso examined with computer-aided detection software ([facility], [employer] Reported By: SEAN FISHER M.D. 2-Ile-099012:08 DEXA BONE DENSITY STUDY (HP) Radiology Report See Note (Normal) Comments: Exam Number: [id number] BONE DENSITOMETRY HISTORYPostmenopausal. TECHNIQUE Bone densitometry of [...] than in 2001 and 0.8%less than in 2004. IMPRESSIONThere is osteopenia in the lumbar spine and total left hip. Reported By: SEAN FISHER M.D. 39-Fsm-90748:20 Thin prep Pap Comments: Source.............Cervical;EndocervicalLMP / Prev Treat...TOR=[id number];NoneNo. of containers..01 CYTYC Thin Prep VialPATIENT NOT FASTINGClinical Information: THIN PREP PERFORMED BY: ([id number]) [address] [id number] . . (Normal) DIAGNOSIS: SPRCS (Normal) Comments: NEGATIVE FOR INTRAEPITHELIAL LESION AND MALIGNANCY.Satisfactory for evaluation. Endocervical and/or squamous metaplasticcells (endocervical component) are present.V72.31 ; Routine gynecolog ical examina Jerzy Ybarra Bean Viner (ASCP) Note: PAPSMR (Normal) Comments: The Pap [...] resulttherefore, no HPV testing was performed. . 3-Tth-740967:50 BMP Comments: COMMENTS: OR 10/17/06Precautions*: NOT APPLICABLE [...] PLATELETS WBC 7.3 K/mm3 (Normal) Range: 4.4-11.0 :50 ROUTINE UA Comments: COMMENTS: OR 10/17/06Precautions*: NOT [...] Plan of Care Name Dates Details Instructions Cough : Follow up if no improvement [...] well woman exam) : *Well Female Maintenance (SMC) Indication: Well woman exam (Renamed from Encounter [...] (KF) Indication: Well woman exam Planned Observations ALKALINE PHOSPHATASE (96513)Indication: Osteoporosis, disuse On: 84-Dbm-441183:05 Request LIPID PANEL (77324)Indication: Encounter for screening for lipid disorder On: 4-Lcu-643301:17 Request TSH (THYROID STIMULATING HORMONE) (74482)Indication: Well woman exam (Renamed from Encounter for well woman exam) On: :43 Request LIPID PANEL (37756)Indication: Well woman exam (Renamed from Encounter for well woman exam) On: :43 Request METABOLIC PANEL, COMPREHENSIVE (35650)Indication: Well woman exam (Renamed from Encounter for well woman exam) On: :43 Request CBC & PLATELETS (AUTO) (00844)Indication: Well woman exam (Renamed from Encounter for well woman exam) On: :43 Request CALCIFEDIOL (63579)Indication: Well woman exam (Renamed from Encounter for well woman exam) On: :43 Request VITAMIN B12 AND FOLATES (69321)Indication: Well woman exam (Renamed from Encounter for well woman exam) On: :43 Request FECAL OCCULT- Tubes sent home (22682)Indication: Encounter for screening for malignant neoplasm of colon (Renamed from Special screening for malignant neoplasms, colon) On: :52 Request Thin prep Pap (09608) (no STD testing)Indication: Well woman exam On: :52 Request FECAL OCCULT HGB ASSAY- tubes sent home (72635)Indication: Breast screening On: :45 Request FECAL OCCULT HGB ASSAY- tubes sent home (98746)Indication: Well woman exam On: :51 Request Thin prep Pap (82790)Indication: Well woman exam On: :51 Request FECAL OCCULT HGB ASSAY- tubes sent home (17364)Indication: Well woman exam On: 57-Bgj-275618:04 Request VITAMIN B-12 (CYANOCOBALAMIN) (72440)Indication: B12 deficiency On: 95-Mrk-576845:36 Request FECAL OCCULT HGB ASSAY- tubes sent home (36150)Indication: Well woman exam On: 09-Xwm-233907:47 Request Culture, Aerobic, Bacterial ID (24480)Indication: IMPETIGO (684.) On: 97-Jof-026226:59 Request Rapid Strep Test, Office (53425)Indication: Pharyngitis, acute On: 86-Ecj-940537:10 Request CALCIFIDIOL (71723) VIT D 25Indication: Fatigue On: 79-Gyq-555631:21 Request TSH (89621)Indication: Fatigue On: 75-Gfl-392809:21 Request VITAMIN B-12 (CYANOCOBALAMIN) (94359)Indication: B12 deficiency On: 88-Rse-661213:21 Request Thin prep Pap (75568)Indication: Well woman exam On: 90-Ski-892608:52 Request Planned Encounters Medical; Well Woman Exam with PAP - On: 15-Jul-2018 11:15 [facility] Amy Pickard DO, DO, Kathleen Planned Procedures MAMMOGRAM BREAST BILATERAL On: 23-Jun-2018 Intent SCREENING DIGITAL (36041)By: Amy Pickard DO, DO, Amy Aerosol Treatment (42383)By: On: 11-Aug-2017 Intent Chanel Bush Comments: Lungs clear after aerosol treatment DEXA SCAN AXIAL SKELETON (05105)By: On: 09-Jun-2017 Intent Amy Pickard DO, DO, Amy SCREENING DIGITAL TOMOSYNTHESIS OF On: 09-Jun-2017 Intent BREAST (71832)By: Amy Pickard DO DO, Amy MAMMOGRAM, SCREENING, BOTH BREAST On: 13-Nov-2015 Intent (98552)By: Amy Pickard DO, DO, Kathleen DEXA SCAN AXIAL SKELETON (31934)By: On: 13-Nov-2015 Intent Amy Pickard DO DO, Amy DEXA SCAN AXIAL SKELETON (80475)By: On: 16-Nov-2014 Intent Amy Pickard DO DO, Amy MAMMOGRAM, SCREENING, BOTH BREAST On: 16-Nov-2014 Intent (27111)By: Amy Pickard DO, DO, Amy MAMMOGRAM, SCREENING, BOTH BREAST On: 29-Sep-2014 Intent (12834)By: Amy Pickard DO, DO, Amy SPECIMEN HNDLNG/TRNSPRT, OFFC > LAB On: 23-May-2014 Intent (26045)By: Meg MCKEON, Comfort B 12 Injection, 1000 mcg (J3420)By: On: 26-Nov-2013 Intent Amy Pickard DO, DO, Comments: lot: [id number]: 2/16site/route: L del/IMamt: 1mlVIS signed when applicableROSLYN Najera DXA, BONE DENSITY, AXIAL SKELETON On: 26-Nov-2013 Intent (67363)By: Amy Pickard DO, DO, Kathleen Eprescribed prescriptions On: 26-Nov-2013 Intent (G8553)By: Amy Pickard DO, DO, Kathleen Breast Screening - BilateralBy: On: 15-Nov-2013 Intent Melly DO, Amy Melly DO, Amy Breast Screening - BilateralBy: On: 01-Nov-2013 Intent Melly DO, Amy Melly DO, Amy Ultrasound - Breast - RightBy: On: 02-Dec-2012 Intent Melly DO, Amy Melly DO, Amy B 12 Injection, 1000 mcg (J3420)By: On: 25-Nov-2012 Intent Melly DO, Amy Melly DO, Comments: Lot:[id number]:06/17Dose:1mlRoute:IMSite:L armGiven By:CHE signed Amy Solu- Medrol Injection, 125mg On: 16-Oct-2012 Intent (J2930)By: Amy Pickard DO Comments: Lot:[id number]:05/2015Dose:125mgRoute:IMSite:R hipGiven By:CHE signed Melly DO, Amy MAMMOGRAM, SCREENING, BOTH BREASTS On: 16-Oct-2012 Intent (39149)By: Melly DO, Amy Melly DO, Amy Eprescribed prescriptions On: 16-Oct-2012 Intent (G8553)By: Melly DO, Amy Melly DO, Amy Eprescribed prescriptions On: 15-Jul-2012 Intent (G8553)By: Cahnel Claire LPN DXA, BONE DENSITY, AXIAL SKELETON On: 02-Sep-2011 Intent (08547)By: Melly DO, Amy Melly DO, Amy MAMMOGRAM, SCREENING, BOTH BREASTS On: 02-Sep-2011 Intent (41369)By: Melly DO, Amy Melly DO, Amy Pulse Oximetry (53329)By: Ciesa On: 22-May-2011 Intent Yady MCKEON Aerosol Treatment (56063)By: Ciesa On: 22-May-2011 Intent Yady MCKEON DXA, BONE DENSITY, AXIAL SKELETON On: 16-Aug-2010 Intent (52775)By: Chanel Claire LPN MAMMOGRAM, SCREENING, BOTH BREASTS On: 16-Aug-2010 Intent (64486)By: Chanel Claire LPN Breast Screening - BilateralBy: On: 31-Jul-2010 Intent Melly DOSophieAmy Melly DO, Comments: mammo Amy B 12 Injection, 1000 mcg (J3420)By: On: 22-Nov-2009 Intent Amy Pickard DO, DO, Comments: Lot:[id number]:may 14 Dose:1000mcg/1mlRoute:IM Site:Right DeltoidGiven by: NINO Freeman Radiology - ChestBy: Melly FIERRO, On: 22-Nov-2009 Intent Amy Ceja DO DXA, BONE DENSITY, AXIAL SKELETON On: 14-Oct-2008 Intent (80856)By: Chanel Claire LPN MAMMOGRAM, SCREENING, BOTH BREASTS On: 14-Oct-2008 Intent (32218)By: Chanel Claire LPN DXA, BONE DENSITY, AXIAL SKELETON On: 17-Jun-2007 Intent (80194)By: Chanel Claire LPN MAMMOGRAM, SCREENING, BOTH BREASTS On: 17-Jun-2007 Intent (49308)By: Chanel Claire LPN MAMMOGRAM, SCREENING, BOTH BREASTS On: 23-Apr-2006 Intent (45243)By: Amy Pickard DO Comments: reviewed Amy Pickard [...] Patient Instructions Indication: GERD (gastroesophageal reflux disease) Encounters Phone Encounter On: 23-Jun-2018 20:55 Encounter Diagnosis: [...] well. Pap smear: date of last pap: (09). Contraceptive history: The patient is not using [...]
== END ==
PROVIDERS: Family Provider Internal Medicine; PCP Internal Medicine; Referring Provider Internal Medicine Endocrinology, Diabetes & Metabolism; Visit Provider Internal Medicine Endocrinology, Diabetes & Metabolism
DX: E21.1 Secondary hyperparathyroidism, not elsewhere classified (principal); E55.9 Vitamin D deficiency, unspecified; Z13.220 Encounter for screening for lipoid disorders
CPT/HCPCS: 36415; 80061; 82306; 83970

== ENCOUNTER → 2018-07-29 09:22 | Outpatient (CLI) | payer OTHER, SELFPAY ==
[2018-07-29 11:27] LABS: Anion Gap 7 (5-15); BUN 8 mg/dL (7-18); BUN/Creat Ratio 12.4 RATIO (10-20); Calcium,Total 8.5 mg/dL (8.5-10.1); Chloride 106 mmol/L (98-107); Creatinine, Serum 0.64 mg/dL (0.55-1.02); EST Glomerular Filtration Rate 98 mL/min (>60); Est Glom Filt Rate - Afr Amer 119 mL/min (>60); Glucose 65 mg/dL (74-106); Potassium 4.1 mmol/L (3.5-5.1); Sodium Level 139 mmol/L (136-145)
[2018-07-29 11:35] LABS: PTHIN 78.1 pg/mL (18.4-80.1)
== END ==
PROVIDERS: Family Provider Internal Medicine; PCP Internal Medicine; Referring Provider Internal Medicine Endocrinology, Diabetes & Metabolism; Visit Provider Internal Medicine Endocrinology, Diabetes & Metabolism
DX: E21.1 Secondary hyperparathyroidism, not elsewhere classified (principal)
CPT/HCPCS: 36415; 80048; 83970

== ENCOUNTER → 2018-08-17 10:53 | Outpatient (CLI) | payer OTHER, SELFPAY ==
--- NOTE | 2018-08-17 10:56 | BI_ITS ---
MAMMOGRAPHY - BILATERAL SCREENING REASON FOR EXAM: Female, 63 years old. Routine annual screening examination. PERTINENT HISTORY: Aunt with breast cancer. TECHNIQUE: Digital bilateral breast bebo (3D mammographic acquisition) in the CC and MLO projections. 2-D mediolateral oblique (MLO) and craniocaudad (CC) views of both breasts were obtained. CAD: Full Field Digital Mammography with Computer Added Detection was performed. COMPARISON: Comparison is made with prior study dated July 10, 2017 and November 28, 2015. FINDINGS: Breast Composition: The breasts are extremely dense, which lowers the sensitivity of mammography. There are no dominant masses or suspicious calcifications. No other significant abnormalities are identified. There has been no significant change since the prior study. BI/SCREEN MAMM (CAD) W/BEBO BILAT IMPRESSION: Stable bilateral screening mammogram. Yearly follow-up mammogram recommended. (A) ASSESSMENT CATEGORY: BIRADS Category 1: Negative. A letter regarding these results will be sent to the patient by the facility within 30 days. Approximately 10% of breast cancers are not detected by mammography. A normal mammogram should not delay biopsy of a clinically suspicious abnormality. [id number] Electronically Signed: Dimitri Frye MD at 12:26 EST Tel [phone], Service support ,
== END ==
PROVIDERS: Family Provider Internal Medicine; PCP Internal Medicine; Referring Provider Internal Medicine; Visit Provider Internal Medicine
DX: Z12.31 Encounter for screening mammogram for malignant neoplasm of breast (principal)
CPT/HCPCS: 77063; 77067

== ENCOUNTER → 2018-09-16 10:59 | Outpatient (CLI) | payer OTHER, SELFPAY ==
[2018-09-16 12:17] LABS: ALB/GLOB Ratio 0.8 RATIO (0.9-2.4); AST(SGOT) 36 U/L (15-37); Alanine Aminotransfer ALT/SGPT 30 U/L (13-56); Albumin, Serum 3.2 g/dL (3.2-5.0); Alkaline Phosphatase 59 U/L (45-117); Anion Gap 7 (5-15); BUN 12 mg/dL (7-18); BUN/Creat Ratio 18.7 RATIO (10-20); Calcium,Total 8.1 mg/dL (8.5-10.1); Chloride 108 mmol/L (98-107); Creatinine, Serum 0.64 mg/dL (0.55-1.02); EST Glomerular Filtration Rate 99 mL/min (>60); Est Glom Filt Rate - Afr Amer 120 mL/min (>60); Glucose 76 mg/dL (74-106); Magnesium 2.1 mg/dL (1.6-2.6); Potassium 4.3 mmol/L (3.5-5.1); Protein, Total 7.2 g/dL (6.4-8.2); Sodium Level 141 mmol/L (136-145)
== END ==
PROVIDERS: Family Provider Internal Medicine; PCP Internal Medicine; Referring Provider Internal Medicine Endocrinology, Diabetes & Metabolism; Visit Provider Internal Medicine Endocrinology, Diabetes & Metabolism
DX: E21.1 Secondary hyperparathyroidism, not elsewhere classified (principal)
CPT/HCPCS: 36415; 80053; 83735; 83970

== ENCOUNTER → 2018-10-05 10:54 | Outpatient (CLI) | payer OTHER, SELFPAY ==
[2018-10-05 13:09] LABS: ALB/GLOB Ratio 0.8 RATIO (0.9-2.4); AST(SGOT) 35 U/L (15-37); Alanine Aminotransfer ALT/SGPT 33 U/L (13-56); Albumin, Serum 3.1 g/dL (3.2-5.0); Alkaline Phosphatase 67 U/L (45-117); Anion Gap 7 (5-15); BUN 9 mg/dL (7-18); BUN/Creat Ratio 12.9 RATIO (10-20); Calcium,Total 8.5 mg/dL (8.5-10.1); Chloride 108 mmol/L (98-107); EST Glomerular Filtration Rate 90 mL/min (>60); Est Glom Filt Rate - Afr Amer 108 mL/min (>60); Globulin 4.1 g/dL (2.2-4.2); Glucose 75 mg/dL (74-106); Potassium 4.3 mmol/L (3.5-5.1); Protein, Total 7.2 g/dL (6.4-8.2); Sodium Level 141 mmol/L (136-145)
== END ==
PROVIDERS: Family Provider Internal Medicine; PCP Internal Medicine; Referring Provider Nurse Practitioner Adult Health; Visit Provider Nurse Practitioner Adult Health
DX: E21.1 Secondary hyperparathyroidism, not elsewhere classified (principal)
CPT/HCPCS: 36415; 80053

== ENCOUNTER → 2018-11-05 11:10 | Outpatient (CLI) | payer OTHER, SELFPAY ==
[2018-11-05 12:42] LABS: PTHIN 75.8 pg/mL (18.4-80.1)
[2018-11-05 12:44] LABS: ALB/GLOB Ratio 0.8 RATIO (0.9-2.4); AST(SGOT) 43 U/L (15-37); Alanine Aminotransfer ALT/SGPT 39 U/L (13-56); Albumin, Serum 3.2 g/dL (3.2-5.0); Alkaline Phosphatase 64 U/L (45-117); Anion Gap 6 (5-15); BUN 16 mg/dL (7-18); BUN/Creat Ratio 22.5 RATIO (10-20); Calcium,Total 8.4 mg/dL (8.5-10.1); Chloride 106 mmol/L (98-107); Creatinine, Serum 0.71 mg/dL (0.55-1.02); EST Glomerular Filtration Rate 88 mL/min (>60); Est Glom Filt Rate - Afr Amer 106 mL/min (>60); Glucose 75 mg/dL (74-106); Magnesium 2.2 mg/dL (1.6-2.6); Potassium 4.2 mmol/L (3.5-5.1); Protein, Total 7.2 g/dL (6.4-8.2); Sodium Level 140 mmol/L (136-145); Thyroid Stim Hormone (TSH) 2.58 uIU/mL (0.358-3.74)
[2018-11-06 20:07] LABS: Endomysial Antibody IgA Positive (Negative)
[2018-11-07 14:32] LABS: Immunoglobulin A 552 mg/dL (87-352); t-Transglutaminase IgA >100 U/mL (0-3)
== END ==
PROVIDERS: Family Provider Internal Medicine; PCP Internal Medicine; Referring Provider Internal Medicine Endocrinology, Diabetes & Metabolism; Visit Provider Internal Medicine Endocrinology, Diabetes & Metabolism
DX: M81.0 Age-related osteoporosis without current pathological fracture (principal); E21.1 Secondary hyperparathyroidism, not elsewhere classified; E55.9 Vitamin D deficiency, unspecified; K90.9 Intestinal malabsorption, unspecified
CPT/HCPCS: 36415; 80053; 82306; 82784; 83516; 83735; 83970; 84443; 86255

== ENCOUNTER → 2018-12-11 | Outpatient (CLI) | payer OTHER, SELFPAY ==
[2018-12-11 12:24] LABS: Vitamin D,25 Hydroxy 76.3 ng/mL (29.95-100.01)
[2018-12-11 12:25] LABS: PTHIN 115.5 pg/mL (18.4-80.1)
[2018-12-11 12:59] LABS: ALB/GLOB Ratio 0.9 RATIO (0.9-2.4); AST(SGOT) 35 U/L (15-37); Alanine Aminotransfer ALT/SGPT 31 U/L (13-56); Albumin, Serum 3.5 g/dL (3.2-5.0); Alkaline Phosphatase 55 U/L (45-117); Anion Gap 7 (5-15); BUN 12 mg/dL (7-18); BUN/Creat Ratio 14.8 RATIO (10-20); Calcium,Total 8.3 mg/dL (8.5-10.1); Chloride 106 mmol/L (98-107); Creatinine, Serum 0.81 mg/dL (0.55-1.02); EST Glomerular Filtration Rate 75 mL/min (>60); Est Glom Filt Rate - Afr Amer 91 mL/min (>60); Glucose 108 mg/dL (74-106); Magnesium 2.4 mg/dL (1.6-2.6); Potassium 4.3 mmol/L (3.5-5.1); Protein, Total 7.5 g/dL (6.4-8.2); Sodium Level 138 mmol/L (136-145); Thyroid Stim Hormone (TSH) 0.49 uIU/mL (0.358-3.74)
== END | disposition home or self-care (01) ==
LOC: LAB 11:23
PROVIDERS: Family Provider Internal Medicine; PCP Internal Medicine; Referring Provider Internal Medicine Endocrinology, Diabetes & Metabolism; Visit Provider Internal Medicine Endocrinology, Diabetes & Metabolism
DX: E21.1 Secondary hyperparathyroidism, not elsewhere classified (principal); E83.42 Hypomagnesemia
CPT/HCPCS: 36415; 80053; 82306; 83735; 83970; 84443

== ENCOUNTER → 2018-12-17 | Outpatient (CLI) | payer OTHER, SELFPAY ==
[2018-12-17 09:54] LABS: Absolute Lymphocyte Count 2.95 X10^3/ul (0.83-4.51); Absolute Neutrophil Count 2.2 X10^3/uL (2.0-7.7); Basophil# 0.09 X10^3/uL; Basophil% 1.2 % (0-1); Eosinophil# 0.99 X10^3/uL; Eosinophils% 13.4 % (0-5); Hematocrit 34.7 % (37-47); Hemoglobin 10.9 g/dl (12.0-15.0); Lymphocyte # 2.95 X10^3/ul (4.0); Lymphocyte % 39.9 % (19-41); Mean Corp Hgb Conc 31.4 g/gl (32-36); Mean Corpuscular Hgb 26.4 pg (27.0-32.0); Mean Platelet Vol. 9.9 fl (6.2-12.0); Monocyte# 1.14 X10^3/uL; Monocyte% 15.4 % (0-10); Neutrophil # 2.21 X10^3/uL (2.7-7.7); Platelet Count 496 K/mm3 (150-450); RBC Distribution Width CV 15.4 % (11.6-14.6); RBC Distribution Width SD 47.6 fl (35.1-43.9); Red Blood Count 4.13 M/mm3 (4.2-5.4); White Blood Count 7.4 K/mm3 (4.4-11.0)
[2018-12-17 10:00] LABS: POSITIVE COUNT NO; POSITIVE DIFFERENTIAL NO; POSITIVE MORPHOLOGY NO
[2018-12-17 10:39] LABS: Ferritin 6 ng/mL (8-252); Iron 56 ug/dL (50-170)
[2018-12-17 10:53] LABS: Vitamin B12 970 pg/mL (211-911)
== END | disposition home or self-care (01) ==
PROVIDERS: Family Provider Internal Medicine; PCP Internal Medicine
DX: K90.0 Celiac disease (principal)
CPT/HCPCS: 36415; 82607; 82728; 83540; 85025

== ENCOUNTER → 2018-12-23 | Outpatient (CLI) | payer OTHER, SELFPAY ==
[2018-12-23 12:51] VITALS: BP 108/71; RESP 16; TEMP 36.8; O2SAT 99; BMI 19.4
[2018-12-23] MEDS: Zoledronic Acid 5 MG 100 ML 300 MG IV (13:02)
== END | disposition home or self-care (01) ==
LOC: MEDOUTP 12:47
PROVIDERS: Family Provider Internal Medicine; PCP Internal Medicine; Referring Provider Internal Medicine Endocrinology, Diabetes & Metabolism; Visit Provider Internal Medicine Endocrinology, Diabetes & Metabolism
DX: M81.0 Age-related osteoporosis without current pathological fracture (principal)
CPT/HCPCS: 96365; J7050; A4216; J3489

== ENCOUNTER → 2019-01-09 | Outpatient (CLI) | payer OTHER, SELFPAY ==
[2018-12-23 12:51] VITALS: BMI 19.4
== END | disposition home or self-care (01) ==
LOC: LAB 08:47
PROVIDERS: Family Provider Internal Medicine; PCP Internal Medicine; Referring Provider Internal Medicine Endocrinology, Diabetes & Metabolism; Visit Provider Internal Medicine Endocrinology, Diabetes & Metabolism
DX: E83.42 Hypomagnesemia (principal)
CPT/HCPCS: 81050

== ENCOUNTER → 2019-02-01 | Outpatient (CLI) | payer MEDICARE, OTHER, SELFPAY ==
[2018-12-23 12:51] VITALS: BMI 19.4
[2019-02-01 09:00] LABS: Magnesium 2.3 mg/dL (1.6-2.6)
[2019-02-01 09:25] LABS: Vitamin B12 571 pg/mL (211-911); Vitamin D,25 Hydroxy 66.4 ng/mL (29.95-100.01)
[2019-02-07 16:10] LABS: Copper, Serum or Plasma 126 ug/dL (72-166); Vitamin A, Retinol 33.3 ug/dL (22.0-69.5); Vitamin B1, Thiamine 118.1 nmol/L (66.5-200.0); Zinc, Plasma or Serum 81 ug/dL (56-134)
== END | disposition home or self-care (01) ==
PROVIDERS: Family Provider Internal Medicine; PCP Internal Medicine
DX: K90.0 Celiac disease (principal)
CPT/HCPCS: 36415; 82306; 82525; 82607; 83735; 84425; 84590; 84630

== ENCOUNTER → 2019-02-15 | Outpatient (CLI) | payer MEDICARE, OTHER, SELFPAY ==
[2018-12-23 12:51] VITALS: BMI 19.4
[2019-02-15 08:21] LABS: ALB/GLOB Ratio 0.8 RATIO (0.9-2.4); AST(SGOT) 38 U/L (15-37); Alanine Aminotransfer ALT/SGPT 39 U/L (13-56); Albumin, Serum 3.2 g/dL (3.2-5.0); Alkaline Phosphatase 57 U/L (45-117); Anion Gap 6 (5-15); BUN 8 mg/dL (7-18); BUN/Creat Ratio 11.2 RATIO (10-20); Calcium,Total 9.1 mg/dL (8.5-10.1); Chloride 105 mmol/L (98-107); Creatinine, Serum 0.72 mg/dL (0.55-1.02); EST Glomerular Filtration Rate 87 mL/min (>60); Est Glom Filt Rate - Afr Amer 105 mL/min (>60); Globulin 3.8 g/dL (2.2-4.2); Glucose 72 mg/dL (74-106); Magnesium 2.3 mg/dL (1.6-2.6); Sodium Level 140 mmol/L (136-145)
[2019-02-15 09:04] LABS: PTHIN 47.7 pg/mL (18.4-80.1)
[2019-02-15 09:10] LABS: Vitamin D,25 Hydroxy 55.4 ng/mL (29.95-100.01)
== END | disposition home or self-care (01) ==
LOC: LAB 07:00
PROVIDERS: Family Provider Internal Medicine; PCP Internal Medicine; Referring Provider Internal Medicine Endocrinology, Diabetes & Metabolism; Visit Provider Internal Medicine Endocrinology, Diabetes & Metabolism
DX: E21.1 Secondary hyperparathyroidism, not elsewhere classified (principal); E83.51 Hypocalcemia; M81.0 Age-related osteoporosis without current pathological fracture; E55.9 Vitamin D deficiency, unspecified; E83.42 Hypomagnesemia
CPT/HCPCS: 36415; 80053; 82306; 83735; 83970

== ENCOUNTER → 2019-03-25 | Outpatient (CLI) | payer MEDICARE, OTHER, SELFPAY ==
[2018-12-23 12:51] VITALS: BMI 19.4
[2019-03-25 10:51] LABS: Hematocrit 38.8 % (37-47); Hemoglobin 12.3 g/dL (12.0-15.0); Mean Corp Hgb Conc 31.7 g/dL (32-36); Mean Corpuscular Hgb 28.3 pg (27.0-32.0); Mean Corpuscular Volume 89.2 fL (81-99); Platelet Count 390 K/mm3 (150-450); RBC Distribution Width CV 19.1 % (11.6-14.6); RBC Distribution Width SD 62.2 fl (35.1-43.9); Red Blood Count 4.35 M/mm3 (4.2-5.4); White Blood Count 7.1 K/mm3 (4.4-11.0)
[2019-03-25 11:18] LABS: Iron 135 ug/dL (50-170); Iron Binding Capacity,Total 232 ug/dL (250-450)
== END | disposition home or self-care (01) ==
PROVIDERS: Family Provider Internal Medicine; PCP Internal Medicine
DX: D50.9 Iron deficiency anemia, unspecified (principal); K90.9 Intestinal malabsorption, unspecified
CPT/HCPCS: 36415; 83540; 83550; 85027

== ENCOUNTER → 2019-05-21 08:45 | Outpatient (CLI) | payer MEDICARE, OTHER, SELFPAY ==
[2018-12-23 12:51] VITALS: BMI 19.4
[2019-05-21 09:55] LABS: Anion Gap 5 (5-15); BUN 13 mg/dL (7-18); Calcium,Total 9.2 mg/dL (8.5-10.1); Chloride 104 mmol/L (98-107); Creatinine, Serum 0.72 mg/dL (0.55-1.02); EST Glomerular Filtration Rate 86 mL/min (>60); Est Glom Filt Rate - Afr Amer 104 mL/min (>60); Glucose 83 mg/dL (74-106); Potassium 3.9 mmol/L (3.5-5.1); Sodium Level 138 mmol/L (136-145)
== END ==
PROVIDERS: Family Provider Internal Medicine; PCP Internal Medicine; Referring Provider Internal Medicine Endocrinology, Diabetes & Metabolism; Visit Provider Internal Medicine Endocrinology, Diabetes & Metabolism
DX: E21.1 Secondary hyperparathyroidism, not elsewhere classified (principal)
CPT/HCPCS: 36415; 80048; 83970

== ENCOUNTER → 2019-08-12 10:28 | Outpatient (CLI) | payer MEDICARE, OTHER, SELFPAY ==
[2018-12-23 12:51] VITALS: BMI 19.4
[2019-08-15 15:08] LABS: Endomysial Antibody IgA Negative (Negative); t-Transglutaminase IgA 6 U/mL (0-3)
== END ==
PROVIDERS: Family Provider Internal Medicine; PCP Internal Medicine
DX: K90.0 Celiac disease (principal)
CPT/HCPCS: 36415; 83516; 86255

== ENCOUNTER → 2019-08-19 07:58 | Outpatient (CLI) | payer MEDICARE, OTHER, SELFPAY ==
[2018-12-23 12:51] VITALS: BMI 19.4
--- NOTE | 2019-08-19 08:02 | BI_ITS ---
MAMMOGRAPHY - BILATERAL SCREENING REASON FOR EXAM: Female, 64 years old. Routine annual screening examination. PERTINENT HISTORY: Aunt with breast cancer. Remote right excisional breast biopsy. TECHNIQUE: Digital bilateral breast bebo (3D mammographic acquisition) in the CC and MLO projections. 2-D mediolateral oblique (MLO) and craniocaudad (CC) views of both breasts were obtained. CAD: Full Field Digital Mammography with Computer Added Detection was performed. COMPARISON: Comparison is made with prior study dated February 14, 2019 and July 10, 2017. FINDINGS: Breast Composition: The breasts are extremely dense, which lowers the sensitivity of mammography. There are no dominant masses or suspicious calcifications. No other significant abnormalities are identified. There has been no significant change since the prior study. BI/SCREEN MAMM (CAD) W/BEBO BILAT IMPRESSION: Stable bilateral screening mammogram. Yearly follow-up mammogram recommended. (A) ASSESSMENT CATEGORY: BIRADS Category 1: Negative. A letter regarding these results will be sent to the patient by the facility within 30 days. Approximately 10% of breast cancers are not detected by mammography. A normal mammogram should not delay biopsy of a clinically suspicious abnormality. [id number] Electronically Signed: Dimitri Frye, at 9:47 EST , Service support ,
== END ==
PROVIDERS: Family Provider Internal Medicine; PCP Internal Medicine; Referring Provider Internal Medicine; Visit Provider Internal Medicine
DX: Z12.31 Encounter for screening mammogram for malignant neoplasm of breast (principal)
CPT/HCPCS: 77063; 77067

== ENCOUNTER → 2019-09-08 09:09 | Outpatient (CLI) | payer MEDICARE, OTHER, SELFPAY ==
[2018-12-23 12:51] VITALS: BMI 19.4
[2019-09-08 09:45] LABS: Absolute Lymphocyte Count 2.84 X10^3/uL (0.83-4.51); Absolute Neutrophil Count 2.1 X10^3/uL (2.0-7.7); Basophil# 0.11 X10^3/uL; Basophil% 1.8 % (0-1); Eosinophil# 0.51 X10^3/uL; Eosinophils% 8.3 % (0-5); Hematocrit 38.9 % (37-47); Hemoglobin 12.5 g/dL (12.0-15.0); Lymphocyte # 2.84 X10^3/ul (4.0); Lymphocyte % 46.1 % (19-41); Mean Corp Hgb Conc 32.1 g/dL (32-36); Mean Corpuscular Hgb 29.6 pg (27.0-32.0); Mean Platelet Vol. 9.4 fl (6.2-12.0); Monocyte# 0.62 X10^3/uL; Monocyte% 10.1 % (0-10); NRBC Flagged by Analyzer 0 % (0-5); Neutrophil # 2.07 X10^3/uL (2.7-7.7); Neutrophil % 33.5 % (47-70); POSITIVE MORPHOLOGY YES; Platelet Count 344 K/mm3 (150-450); RBC Distribution Width CV 13.6 % (11.6-14.6); Red Blood Count 4.23 M/mm3 (4.2-5.4); White Blood Count 6.2 K/mm3 (4.4-11.0)
[2019-09-08 09:51] LABS: Differential Indicated SCAN CRITERIA MET
[2019-09-08 10:23] LABS: PTHIN 49.4 pg/mL (18.4-80.1)
[2019-09-08 10:24] LABS: Vitamin D,25 Hydroxy 63.5 ng/mL (29.95-100.01)
[2019-09-08 10:27] LABS: Atypical Lymphocyte 2+ %; Differential Comment SCANNED; Red Cell Morphology NORM C+C NORMAL (NORM C&C)
[2019-09-08 10:35] LABS: ALB/GLOB Ratio 0.9 RATIO (0.9-2.4); AST(SGOT) 24 U/L (15-37); Alanine Aminotransfer ALT/SGPT 29 U/L (13-56); Albumin, Serum 3.6 g/dL (3.2-5.0); Alkaline Phosphatase 61 U/L (45-117); Anion Gap 3 (5-15); BUN 10 mg/dL (7-18); BUN/Creat Ratio 13.2 RATIO (10-20); Calcium,Total 8.9 mg/dL (8.5-10.1); Chloride 107 mmol/L (98-107); Cholesterol 206 mg/dL (200); Creatinine, Serum 0.76 mg/dL (0.55-1.02); EST Glomerular Filtration Rate 82 mL/min (>60); Est Glom Filt Rate - Afr Amer 99 mL/min (>60); Globulin 3.8 g/dL (2.2-4.2); Glucose 95 mg/dL (74-106); High Density Lipoprotein 65 mg/dL; Potassium 4.3 mmol/L (3.5-5.1); Protein, Total 7.4 g/dL (6.4-8.2); Sodium Level 139 mmol/L (136-145); Thyroid Stim Hormone (TSH) 2.04 uIU/mL (0.358-3.74); Triglycerides 119 mg/dL; Very Low Density Lipoprotein 24 mg/dL (5-40)
== END ==
PROVIDERS: PCP Internal Medicine; Referring Provider Internal Medicine Endocrinology, Diabetes & Metabolism; Visit Provider Internal Medicine Endocrinology, Diabetes & Metabolism
DX: D50.9 Iron deficiency anemia, unspecified (principal); E21.1 Secondary hyperparathyroidism, not elsewhere classified; E55.9 Vitamin D deficiency, unspecified; E78.2 Mixed hyperlipidemia; M81.0 Age-related osteoporosis without current pathological fracture
CPT/HCPCS: 36415; 80053; 80061; 82306; 83970; 84443; 85025

== ENCOUNTER → 2020-01-10 10:20 | Outpatient (CLI) | payer MEDICARE, OTHER, SELFPAY ==
[2018-12-23 12:51] VITALS: BMI 19.4
[2020-01-10 11:40] LABS: AST(SGOT) 27 U/L (15-37); Alanine Aminotransfer ALT/SGPT 30 U/L (13-56); Albumin, Serum 3.6 g/dL (3.2-5.0); Alkaline Phosphatase 64 U/L (45-117); Anion Gap 4 (5-15); BUN 14 mg/dL (7-18); BUN/Creat Ratio 18.3 RATIO (10-20); Calcium,Total 8.9 mg/dL (8.5-10.1); Chloride 105 mmol/L (98-107); Creatinine, Serum 0.77 mg/dL (0.55-1.02); EST Glomerular Filtration Rate 80 mL/min (>60); Est Glom Filt Rate - Afr Amer 97 mL/min (>60); Globulin 3.7 g/dL (2.2-4.2); Glucose 111 mg/dL (74-106); Magnesium 2.3 mg/dL (1.6-2.6); Potassium 4.1 mmol/L (3.5-5.1); Protein, Total 7.3 g/dL (6.4-8.2); Sodium Level 139 mmol/L (136-145); Vitamin D,25 Hydroxy 80.1 ng/mL
== END ==
LOC: LABSPEC 10:24 → LAB 10:25
PROVIDERS: PCP Internal Medicine; Referring Provider Internal Medicine Endocrinology, Diabetes & Metabolism; Visit Provider Internal Medicine Endocrinology, Diabetes & Metabolism
DX: E21.1 Secondary hyperparathyroidism, not elsewhere classified (principal); E55.9 Vitamin D deficiency, unspecified
CPT/HCPCS: 36415; 80053; 82306; 83735

== ENCOUNTER → 2020-02-10 12:44 | Outpatient (CLI) | payer MEDICARE, OTHER, SELFPAY ==
[2018-12-23 12:51] VITALS: BMI 19.4
[2020-02-10 13:25] VITALS: BP 107/71; PULSE 67; RESP 16; TEMP 36.6; O2SAT 97; BMI 20.7
[2020-02-10] MEDS: 0.9% NaCl Peripheral Flush Adult/Peds IV (13:30)
[2020-02-10] MEDS: Zoledronic Acid 5 MG 100 ML 300 MG IV (13:30)
== END ==
PROVIDERS: PCP Internal Medicine; Referring Provider Internal Medicine Endocrinology, Diabetes & Metabolism; Visit Provider Internal Medicine Endocrinology, Diabetes & Metabolism
DX: M81.0 Age-related osteoporosis without current pathological fracture (principal)
CPT/HCPCS: 96365; A4216; J3489